=== PATIENT | female | born 1965 ===

== ENCOUNTER 2016-08-12 14:41 | Emergency (ER) | payer OTHER ==
[2016-08-12 14:41] VITALS: BMI 62.4
[2016-08-12 14:45] VITALS: RESP 18; TEMP 97.9; O2SAT 96
--- NOTE | 2016-08-12 15:31 | C.PDOC ---
History Of Present Illness 50 yo female w/PMHx of HTN, NIDDM, come in for evaluation of facial swelling, itchy rash gradually developed for past week. Pt admits, similar sx in past " not sure what I might be allergic to". Pt denies change in her medication regimen, denies KVNG inh, BCP use. Pt denies recent illness, fever, chills, headache, dizziness, visual changes, neck pain, CP, sore throat or tightness, SOB, dyspnea, wheezing, cough, abd. pain, N/V/D, UTI Sx. Pt admits, was taking benadryl, Zyrtec OTC without improvement in rash. Ambulate to ED for evaluation , not in any apparent distress. Time Seen by Provider: 08/12/16 14:47 Chief Complaint (Nursing): Abnormal Skin Integrity History Per: Patient Onset/Duration Of Symptoms: Gradual Current Symptoms Are (Timing): Still Present Past Medical History Reviewed: Historical Data, Nursing Documentation, Vital Signs Vital Signs: Last Vital Signs Temp 97.9 F 08/12/16 14:43 Pulse 83 08/12/16 14:43 Resp 18 08/12/16 14:43 BP 128/79 08/12/16 14:43 Pulse Ox 96 08/12/16 14:43 - Medical History PMH: Anemia, Anxiety, Asthma, Back Problems, Diabetes, HTN, Hypercholesterolemia , Osteoporosis, Rheumatoid Arthritis Denies: Chronic Kidney Disease Surgical History: CABG Family History: States: No Known Family Hx - Social History Hx Tobacco Use: Yes Hx Alcohol Use: Yes Hx Substance Use: No - Immunization History Hx Tetanus Toxoid Vaccination: No Hx Influenza Vaccination: Yes Hx Pneumococcal Vaccination: No Review Of Systems Except As Marked, All Systems Reviewed And Found Negative. Constitutional: Negative for: Fever, Chills Eyes: Positive for: Other (swelling periorbital). Negative for: Vision Change, Eyelid Inflammation, Redness ENT: Negative for: Ear Discharge, Mouth Swelling, Throat Pain, Throat Swelling Cardiovascular: Negative for: Chest Pain, Palpitations, Orthopnea, Edema, Light Headedness Respiratory: Negative for: Cough, Shortness of Breath, Wheezing Gastrointestinal: Negative for: Nausea, Vomiting, Abdominal Pain Genitourinary: Negative for: Dysuria, Frequency Musculoskeletal: Negative for: Neck Pain, Back Pain Skin: Positive for: Rash Neurological: Negative for: Weakness, Numbness, Altered Mental Status, Headache , Dizziness Physical Exam - Physical Exam Appears: Well, Non-toxic, No Acute Distress Skin: Warm, Dry, Rash (scattered tiny erythematous macular rash to face, anterior chest, B/L UEs , abdomenal wall and upper back. no clelulitis) Head: Normacephalic Eye(s): bilateral: Normal Inspection, PERRL, EOMI, Other (mild periorbital edema , no erythema.) Ear(s): Bilateral: Normal Nose: Normal, No Discharge Oral Mucosa: Moist, No Drooling Tongue: Normal Appearing, No Swelling Lips: Normal Appearing, No Swelling Throat: Normal, No Erythema, No Exudate, Other (uvula midline, no edema.) Neck: Normal, Normal ROM, Supple Cardiovascular: Rhythm Regular Respiratory: Normal Breath Sounds, No Stridor, No Wheezing Gastrointestinal/Abdominal: Normal Exam, Soft, No Tenderness, No Distention, No Guarding Back: Normal Inspection Extremity: Normal ROM, No Pedal Edema Neurological/Psych: Oriented x3, Normal Speech ED Course And Treatment O2 Sat by Pulse Oximetry: 96 Pulse Ox Interpretation: Normal Progress Note: On re-eavluation, pt is afebrile, hemodynamicaly stable. NOn- toxic. PulseOx 96% RA. Tolerate PO well in ED. ENT: no acute finidngs., uvula midline, no edema. Lungs: CTA B/L, BS equal B/L. Abd: benign. Skin: erythematous macular rash, nos. Pt has clinical findings c/w mild facial edema mostly periorbital, skin rash r/o allergic reaction, recurrent. Pt advised to F /U with PMD, Fire Fighters Dispatcher in 2-3 days for re-evaluation. Return to ED if nay worsening or new hcanges. Disposition Counseled Patient/Family Regarding: Diagnosis, Need For Followup, Rx Given - Disposition Referrals: Kiran Harrison MD [Medical Doctor] - Disposition: HOME/ ROUTINE Disposition Time: 15:29 Condition: STABLE Additional Instructions: Follow up with PMD and Fire Fighters Dispatcher in 2-3 days for re-evaluation and further treatment of recurrent rash. Return to ED if any worsening or new changes. Prescriptions: DiphenhydrAMINE [Benadryl] 25 mg PO BID #10 cap Prednisone [Deltasone] 40 mg PO DAILY #6 tablet Famotidine [Pepcid] 20 mg PO BID #10 tab Instructions: Urticaria (ED) - Clinical Impression Clinical Impression: Facial edema, Allergy
[2016-08-12 15:54] VITALS: BP 121/77; PULSE 79
== END 2016-08-12 15:54 | disposition home or self-care (01) ==
LOC: C.ER 14:41
DX: T78.40XA Allergy, unspecified, initial encounter (principal); R60.9 Edema, unspecified; X58.XXXA Exposure to other specified factors, initial encounter

== ENCOUNTER 2016-10-06 14:39 | Emergency (ER) | payer OTHER ==
[2016-10-06 14:48] VITALS: BMI 30.1
[2016-10-06 15:00] VITALS: TEMP 98.2; O2SAT 97
--- NOTE | 2016-10-06 15:59 | C.PDOC ---
History Of Present Illness 50 y/o female presents to ED with complaint of clicking on extension of her right thumb for 1 month with worsening pain to click over the last few days. Patient denies any trauma or known injury. Denies any other physical complaints. Time Seen by Provider: 10/06/16 15:15 Chief Complaint (Nursing): Upper Extremity Problem/Injury History Per: Patient History/Exam Limitations: no limitations Onset/Duration Of Symptoms: Days Current Symptoms Are (Timing): Worse Quality: "Pain" Exacerbating Factor(s): Movement Recent travel outside of the [place]: No Past Medical History Reviewed: Historical Data, Nursing Documentation, Vital Signs Vital Signs: Last Vital Signs Temp 98.2 F 10/06/16 14:49 Pulse 78 10/06/16 17:05 Resp 18 10/06/16 17:05 BP 126/75 10/06/16 17:05 Pulse Ox 97 10/06/16 17:31 - Medical History PMH: Anemia, Anxiety, Asthma, Back Problems, Diabetes, HTN, Hypercholesterolemia , Osteoporosis, Rheumatoid Arthritis Surgical History: Denies: CABG (Cathetherization) Family History: States: Unknown Family Hx - Social History Hx Tobacco Use: Yes Hx Alcohol Use: Yes Hx Substance Use: No - Immunization History Hx Tetanus Toxoid Vaccination: No Hx Influenza Vaccination: Yes (2017) Hx Pneumococcal Vaccination: No Review Of Systems Except As Marked, All Systems Reviewed And Found Negative. Musculoskeletal: Positive for: Hand Pain (right thumb). Negative for: Arm Pain Skin: Negative for: Rash Neurological: Negative for: Weakness, Numbness Physical Exam - Physical Exam Appears: Non-toxic, No Acute Distress Skin: Normal Color, Warm, Dry Head: Atraumatic, Normacephalic Extremity: Normal ROM, Tenderness (at right DIP joint 1st digit), Capillary Refill (< 2 sec.), No Deformity, No Swelling, Other (right thumb with locking at DIP joint, easily to extend the click) Extremity: Bilateral: Normal Color And Temperature Pulses: Left Radial: Normal, Right Radial: Normal Neurological/Psych: Oriented x3, Normal Motor, Normal Sensation ED Course And Treatment O2 Sat by Pulse Oximetry: 97 (RA) Pulse Ox Interpretation: Normal - Other Rad HAND RIGHT THUMB XR X-Ray: Interpreted by Me, Viewed By Me Interpretation: negative for fx or dislocation Progress Note: Treated with Toradol. Right hand/thumb x-ray ordered and reviewed , negative for acute fx or dislocation. Advised follow up with PMD within 1-2 days. Disposition Counseled Patient/Family Regarding: Diagnosis, Need For Followup - Disposition Referrals: Jimmy Spencer MD [Staff Provider] - Disposition: HOME/ ROUTINE Disposition Time: 16:57 Condition: GOOD Additional Instructions: Make an apt with the hand surg Prescriptions: Naproxen [Naprosyn] 1 tab PO BID PRN #25 tab PRN Reason: Pain Instructions: Trigger Finger (ED) - Clinical Impression Clinical Impression: Trigger finger - Scribe Statement The provider has reviewed the documentation as recorded by the Yony Penn Provider Attestation: All medical record entries made by the Yony were at my direction and personally dictated by me. I have reviewed the chart and agree that the record accurately reflects my personal performance of the history, physical exam, medical decision making, and the department course for this patient. I have also personally directed, reviewed, and agree with the discharge instructions and disposition.
[2016-10-06 17:06] VITALS: BP 126/75; PULSE 78; RESP 18
--- NOTE | 2016-10-07 10:32 | RAD ---
PROCEDURE: Right Thumb radiographs. HISTORY: Pain, locking COMPARISON: None available. TECHNIQUE: AP radiograph of the right hand, as well as spot oblique and lateral images of thumb were obtained. FINDINGS: RIGHT THUMB: Unremarkable right 1st digit without acute displaced fracture identified. Remainder of the right hand (as seen on the AP view) grossly unremarkable. JOINTS: No dislocation. SOFT TISSUES: Unremarkable. No evidence of radiopaque foreign body. OTHER FINDINGS: None. IMPRESSION: No acute displaced fracture or dislocation identified. If symptoms persist or if there is continued clinical concern, x-ray follow-up in 7-10 days should be considered.
== END 2016-10-06 17:07 | disposition home or self-care (01) ==
LOC: C.ER 14:39
DX: M65.311 Trigger thumb, right thumb (principal)
CPT/HCPCS: 73140; 96372; 99284; J1885

== ENCOUNTER 2017-02-06 08:22 | Emergency (ER) | payer OTHER ==
[2017-02-06 08:23] VITALS: BMI 30.1
[2017-02-06 08:31] VITALS: RESP 18
[2017-02-06] MEDS ORDERED: Fluorescein 1 mg Ophthalmic Strip OD ONE (08:40)
[2017-02-06] MEDS ORDERED: Tetracaine 0.5% Ophth 2 ML BOTTLE OU ONE (08:40)
[2017-02-06] MEDS ORDERED: Fluorescein 1 mg Ophthalmic Strip ONE (08:45)
[2017-02-06] MEDS ORDERED: Tetracaine 0.5% Ophth (OR ONLY) ONE (08:46)
--- NOTE | 2017-02-06 09:02 | C.PDOC ---
History Of Present Illness 51 yr old female presents to the ER for evaluation of pain to the right eye. Patient states yesterday she felt her eye was irritated , started scratching it and then felt like she broke her lens. Pt is concerned that part of her lens is still in her eye. Patient denies vision changes, headache or dizziness. Time Seen by Provider: 02/06/17 08:39 Chief Complaint (Nursing): Eye Problem History Per: Patient History/Exam Limitations: no limitations Onset/Duration Of Symptoms: Days (1) Past Medical History Reviewed: Historical Data, Nursing Documentation, Vital Signs Vital Signs: Last Vital Signs Temp 98.1 F 02/06/17 09:18 Pulse 72 02/06/17 09:18 Resp 18 02/06/17 09:18 BP 126/72 02/06/17 09:18 Pulse Ox 98 02/06/17 09:25 - Medical History PMH: Anemia, Anxiety, Asthma, Back Problems, Diabetes, HTN, Hypercholesterolemia , Osteoporosis, Rheumatoid Arthritis Surgical History: Denies: CABG (Cathetherization) Family History: States: No Known Family Hx - Social History Hx Tobacco Use: Yes Hx Alcohol Use: Yes Hx Substance Use: No - Immunization History Hx Tetanus Toxoid Vaccination: No Hx Influenza Vaccination: Yes (2017) Hx Pneumococcal Vaccination: No Review Of Systems Except As Marked, All Systems Reviewed And Found Negative. Eyes: Positive for: Pain (Right eye). Negative for: Vision Change Neurological: Negative for: Headache, Dizziness Physical Exam - Physical Exam Appears: Non-toxic, No Acute Distress Skin: Warm, Dry Head: Atraumatic, Normacephalic Eye(s): bilateral: PERRL, EOMI, right: Other (Mild injection. Fluorescein uptake at the 8 oclock position.) Nose: Normal Oral Mucosa: Moist Neck: Normal ROM, Supple Chest: Symmetrical Respiratory: No Accessory Muscle Use Extremity: Normal ROM, No Swelling Neurological/Psych: Oriented x3, Normal Speech, Normal Motor ED Course And Treatment O2 Sat by Pulse Oximetry: 98 (RA) Pulse Ox Interpretation: Normal Progress Note: Patient is treated with Motrin for the pain. Right eye was irrigated. Patient advised to follow up with Opthamologist in 1-2 days. Medical Decision Making Medical Decision Making: PLAN: * Motrin PO Disposition - Disposition Referrals: Kiran Woodson MD [Staff Provider] - Disposition: HOME/ ROUTINE Disposition Time: 09:00 Condition: STABLE Additional Instructions: Follow up with referral physician in 1-2 days without fail for further evaluation. Take medications as prescribed. Return to the emergency department at any time if symptoms persist or worsen. Prescriptions: Tobramycin 0.3% [Tobramycin 5 Ml] 1 drop OP Q4 #1 bottle Instructions: Corneal Abrasion (ED) Forms: [employer] (Chilean) - Clinical Impression Clinical Impression: Corneal abrasion - PA / TILE GRADER / Resident Statement MD/DO has reviewed & agrees with the documentation as recorded. - Scribe Statement The provider has reviewed the documentation as recorded by the Scribe Kamilah Valera All medical record entries made by the Scribe were at my direction and personally dictated by me. I have reviewed the chart and agree that the record accurately reflects my personal performance of the history, physical exam, medical decision making, and the department course for this patient. I have also personally directed, reviewed, and agree with the discharge instructions and disposition.
[2017-02-06 09:18] VITALS: BP 126/72; PULSE 72; TEMP 98.1
[2017-02-06 09:23] VITALS: O2SAT 98
== END 2017-02-06 09:25 | disposition home or self-care (01) ==
LOC: C.ER 08:22
DX: S05.01XA Injury of conjunctiva and corneal abrasion without foreign body, right eye, initial encounter (principal); X58.XXXA Exposure to other specified factors, initial encounter

== ENCOUNTER 2017-05-18 11:20 | Observation (INO) | payer MEDICARE, OTHER ==
[2017-05-18 11:21] VITALS: BMI 30.1
[2017-05-18] MEDS ORDERED: Aspirin 325 mg EC Tablets PO STA (14:14)
--- NOTE | 2017-05-18 14:19 | C.PDOC ---
History Of Present Illness 6o y/o female with dm and htn , cva, c/o 10 days of cough with green sputum, body aches, fever to 102. pt also c/o intermittent sharp non radiating left sided chest pain that comes and goes for last few days that is not associated with breathing or coughing. +chest pain now. Time Seen by Provider: 05/18/17 14:01 Chief Complaint (Nursing): Cough, Cold, Congestion History Per: Patient History/Exam Limitations: no limitations Onset/Duration Of Symptoms: Days (10) Current Symptoms Are (Timing): Still Present Location Of Pain: Other (chest) Associated Symptoms: Cough, Sputum Past Medical History Reviewed: Historical Data, Nursing Documentation, Vital Signs Vital Signs: Last Vital Signs Temp 97.3 F L 05/20/17 08:05 Pulse 82 05/20/17 08:05 Resp 18 05/20/17 08:05 BP 120/78 05/20/17 08:05 Pulse Ox 97 05/20/17 10:46 - Medical History PMH: Anemia, Anxiety, Asthma, Back Problems, CVA, Diabetes, HTN, Hypercholesterolemia, Osteoporosis, Rheumatoid Arthritis Denies: Chronic Kidney Disease Surgical History: Denies: CABG (Cathetherization) Family History: States: Unknown Family Hx - Social History Hx Tobacco Use: Yes Hx Alcohol Use: Yes Hx Substance Use: No - Immunization History Hx Tetanus Toxoid Vaccination: No Hx Influenza Vaccination: Yes (2017) Hx Pneumococcal Vaccination: No Review Of Systems Constitutional: Positive for: Fever Cardiovascular: Positive for: Chest Pain Respiratory: Positive for: Cough, Shortness of Breath, Pleuritic Pain, Sputum Neurological: Negative for: Weakness, Numbness Physical Exam - Physical Exam Appears: Non-toxic, Other (uncomfortable appearing) Skin: Warm, Dry Head: Atraumatic, Normacephalic Oral Mucosa: Moist Throat: No Erythema, No Exudate Neck: Supple Chest: Symmetrical, No Deformity, No Tenderness Cardiovascular: Rhythm Regular, No Murmur Respiratory: Other (coarse breath sounds) Gastrointestinal/Abdominal: Soft, No Tenderness Neurological/Psych: Oriented x3, Normal Speech, Normal Cognition, Normal Motor, Normal Sensation ED Course And Treatment - Laboratory Results Result Diagrams: 05/20/17 06:22 05/20/17 06:22 ECG Rhythm: Sinus Rhythm (normal) ECG Interpretation: Abnormal Interpretation Of ECG: Cannot rule out anterior infarct, age undertermined Rate From EC O2 Sat by Pulse Oximetry: 97 Medical Decision Making Medical Decision Makin pm pt with multiple medical problems and lultiple risk factors for cad with active chest pain, ekg changes and no old ekg to compare. concern for angina, nstemi. pt still having chest pain, and having anxiety attack. no old ekg to compare. [address] Tovar, will admit to his service. Disposition Discussed With : Jenifer Tovar - Disposition Disposition: HOSPITALIZED Disposition Time: 16:55 Condition: FAIR - Clinical Impression Clinical Impression: Chest pain
[2017-05-18] MEDS ORDERED: Aspirin 325 mg EC Tablets PO ONE (14:33)
[2017-05-18 14:38] LABS: BASO % 0.3 % (0.0-2.0); EOS # 0.3 K/uL (0.0-0.7); EOS % 2.3 % (0.0-4.0); LYMPH # 2.4 K/uL (1.0-4.3); LYMPH % 21.6 % (20.0-40.0); MEAN CELL VOLUME 87.3 fL (81.0-99.0); MEAN CORPUSCULAR HEMOGLOBIN 30.5 pg (27.0-31.0); MEAN CORPUSCULAR HGB CONC 34.9 g/dL (33.0-37.0); MEAN PLATELET VOLUME 9.4 fL (7.2-11.7); MONO # 0.7 K/uL (0.0-0.8); MONO % 5.9 % (0.0-10.0); NEUT # 7.9 K/uL (1.8-7.0); NEUT % 69.9 % (50.0-75.0); RBC 4.59 Mil/uL (3.80-5.20); RED CELL DISTRIBUTION WIDTH 12.8 % (11.5-14.5); WHITE BLOOD COUNT 11.2 K/uL (4.8-10.8)
--- NOTE | 2017-05-18 14:41 | RAD ---
HISTORY: chest pain and cough COMPARISON: None available. TECHNIQUE: Chest PA and lateral FINDINGS: Examination limited by habitus. LUNGS: Subsegmental atelectasis, left lung base. No focal consolidation. Please note that chest x-ray has limited sensitivity for the detection of pulmonary masses. PLEURA: No significant pleural effusion identified. No definite pneumothorax . CARDIOVASCULAR: Heart size appears within normal limits. OSSEOUS STRUCTURES: No acute osseous abnormality identified. VISUALIZED UPPER ABDOMEN: Unremarkable. OTHER FINDINGS: None. IMPRESSION: Subsegmental atelectasis, left lung base.
[2017-05-18 15:01] LABS: ALB/GLOB RATIO 1.3 (1.0-2.1); ALBUMIN 4.1 g/dL (3.5-5.0); ALT/SGPT 21 U/L (9-52); AST/SGOT 20 U/L (14-36); BLOOD UREA NITROGEN 11 mg/dL (7-17); CALCIUM 7.9 mg/dl (8.6-10.4); GFR AFRICAN-AMERICAN > 60; GFR NON-AFRICAN AMERICAN > 60
[2017-05-18] MEDS ORDERED: Potassium Chloride 20 mEq ER Tab PO ONE (17:04)
[2017-05-18] MEDS: Sodium Chloride 0.9% 1,000 ML IV SCH (17:07)
[2017-05-18] MEDS ORDERED: Oxycodone/Acetaminophen 5/325 mg Tab ONE (22:24)
[2017-05-18] MEDS: Oxycodone/Acetaminophen 5/325 mg Tab PO PRN (22:27)
[2017-05-19] MEDS ORDERED: (Novolog) Insulin Aspart, Recombinant 100 u/ml 10 ml vial ONE (00:18)
[2017-05-19] MEDS: (Novolog) Insulin Aspart, Recombinant 100 u/ml 10 ml vial SC SCH ×5 (00:20→21:55)
[2017-05-19] MEDS: Sodium Chloride 0.9% 1,000 ML IV SCH ×2 (03:37→12:22)
[2017-05-19] MEDS: Enoxaparin 40 mg Syringe SC SCH (09:10)
[2017-05-19] MEDS: Potassium Chloride 20 mEq ER Tab PO SCH (09:10)
[2017-05-19] MEDS: Oxycodone/Acetaminophen 5/325 mg Tab PO PRN ×2 (09:11→16:05)
[2017-05-19] MEDS: Pantoprazole 40 mg EC Tab PO SCH (09:12)
[2017-05-19] MEDS ORDERED: CREON PO SCH ×2 (10:00)
[2017-05-19] MEDS ORDERED: Home Med 1 UNIT (Linaclotide [Linzess] 145 MCG) PO SCH (10:00)
[2017-05-19 11:51] LABS: BLOOD UREA NITROGEN 13 mg/dL (7-17); CALCIUM 7.8 mg/dl (8.6-10.4); GFR AFRICAN-AMERICAN > 60; GFR NON-AFRICAN AMERICAN > 60; MAGNESIUM 1.6 mg/dL (1.6-2.3)
[2017-05-19] MEDS ORDERED: guaiFENesin 200 mg/10 ml Syrup UD PO PRN (12:03)
[2017-05-19] MEDS: Azithromycin 500 MG in Sodium Chloride 0.9% 250 ML IVPB SCH (13:59)
--- NOTE | 2017-05-19 14:51 | CARD ---
APPROVED REPORT EKG Measurement Heart [id number] <Conclusion> Normal sinus rhythm Cannot rule out Anterior infarct, age undetermined Abnormal ECG
--- NOTE | 2017-05-19 17:07 | CP.PCM.HP ---
Past Patient History - Past Medical History & Family History Past Medical History?: Yes - Past Social History Smoking Status: Current Some Days Smoker - CARDIAC Hx Hypercholesterolemia: Yes Hx Hypertension: Yes - PULMONARY Hx Asthma: Yes - NEUROLOGICAL Hx Neurological Disorder: No - HEENT Hx HEENT Problems: Yes Other/Comment: wears contacts all the time - RENAL Hx Chronic Kidney Disease: No - ENDOCRINE/METABOLIC Hx Endocrine Disorders: Yes Hx Diabetes Mellitus Type 1: Yes (''ONLY WHEN NEEDED'') - HEMATOLOGICAL/ONCOLOGICAL Hx Anemia: Yes - INTEGUMENTARY Hx Dermatological Problems: No - MUSCULOSKELETAL/RHEUMATOLOGICAL Hx Falls: Yes Hx Osteoporosis: Yes Hx Rheumatoid Arthritis: Yes - GASTROINTESTINAL Hx Gastrointestinal Disorders: No - GENITOURINARY/GYNECOLOGICAL Hx Genitourinary Disorders: No - PSYCHIATRIC Hx Anxiety: Yes Hx Substance Use: No - SURGICAL HISTORY Hx Coronary Artery Bypass Graft: No (Cathetherization) - ANESTHESIA Hx Anesthesia: Yes Hx Anesthesia Reactions: No Meds Allergies/Adverse Reactions: Allergies Allergy/AdvReac Type Severity Reaction Status Date / Time clopidogrel bisulfate Allergy SHORTNESS Verified 05/18/17 11:45 [From Plavix] OF BREATH Results - Vital Signs Recent Vital Signs: Last Vital Signs Temp 98.2 F 05/19/17 08:10 Pulse 90 05/19/17 15:00 Resp 20 05/19/17 08:10 BP 114/71 05/19/17 08:10 Pulse Ox 96 05/19/17 08:10 - Labs Result Diagrams: 05/18/17 14:31 05/19/17 11:26 Labs: Laboratory Results - last 24 hr 05/18/17 05/19/17 05/19/17 21:56 00:06 06:11 Sodium Potassium Chloride Carbon Dioxide Anion Gap BUN Creatinine Est GFR ( Amer) Est GFR (Non-Af Amer) POC Glucose (mg/dL) 348 H 358 H 194 H Random Glucose Calcium Magnesium Troponin I 05/19/17 05/19/17 05/19/17 11:26 11:49 14:27 Sodium 131 L Potassium 3.6 Chloride 95 L Carbon Dioxide 27 Anion Gap 12 BUN 13 Creatinine 0.5 L Est GFR ( Amer) > 60 Est GFR (Non-Af Amer) > 60 POC Glucose (mg/dL) 216 H Random Glucose 273 H Calcium 7.8 L Magnesium 1.6 Troponin I < 0.0120 05/19/17 16:38 Sodium Potassium Chloride Carbon Dioxide Anion Gap BUN Creatinine Est GFR ( Amer) Est GFR (Non-Af Amer) POC Glucose (mg/dL) 263 H Random Glucose Calcium Magnesium Troponin I
--- NOTE | 2017-05-19 19:38 | CARD ---
APPROVED REPORT EXAM: Two-dimensional and M-mode echocardiogram with Doppler and color Doppler. Other Information Quality : Good[employer]hythm : INDICATION Chest Pain EF 2D DIMENSIONS IVSd1.1 (0.7-1.1cm)LVDd4.4 (3.9-5.9cm) PWd1.2 (0.7-1.1cm)LVDs2.6 (2.5-4.0cm) FS (%) 42.3 %LVEF (%)73.5 (>50%) M-Mode DIMENSIONS Left Atrium (MM)3.85 (2.5-4.0cm)Aortic Root2.87 (2.2-3.7cm) Aortic Cusp Exc.1.92 (1.5-2.0cm) Mitral Valve MV E Fryzrskw850.9cm/sMV A Qvvuyrso22.3cm/sE/A ratio1.0 TDI E/Lateral E'0.0E/Medial E'0.0 Tricuspid Valve TR Peak [id number]/sTR Peak Gr.[id number] LEFT VENTRICLE The left ventricle is normal size. There is normal left ventricular wall thickness. The left ventricular function is normal. The left ventricular ejection fraction is within the normal range. There is normal LV segmental wall motion. Transmitral Doppler flow pattern is Grade I-abnormal relaxation pattern. RIGHT VENTRICLE The right ventricle is normal size. There is normal right ventricular wall thickness. The right ventricular systolic function is normal. ATRIA The left atrium is borderline dilated. The right atrium size is normal. AORTIC VALVE The aortic valve is mildly thickened. No aortic regurgitation is present. There is no aortic valvular stenosis. MITRAL VALVE The mitral valve is normal in structure. There is no mitral valve stenosis. Mitral regurgitation is mild. TRICUSPID VALVE There is mild tricuspid regurgitation. GREAT VESSELS The aortic root is normal in size. The IVC is normal in size and collapses >50% with inspiration. PERICARDIAL EFFUSION There is no pericardial effusion. <Conclusion> There is normal left ventricular wall thickness. The left ventricular function is normal. The left ventricular ejection fraction is within the normal range. There is normal LV segmental wall motion. Transmitral Doppler flow pattern is Grade I-abnormal relaxation pattern. Mitral regurgitation is mild. There is mild tricuspid regurgitation.
[2017-05-20] MEDS: Oxycodone/Acetaminophen 5/325 mg Tab PO PRN ×3 (00:13→17:50)
--- NOTE | 2017-05-20 01:04 | CP.PCM.CON ---
History of Present Illness - History of Present Illness History of Present Illness: Patient seen and evaluated Denies chest pain Some dyspnea noted Check ECHO/ROMIs and EKG Past Patient History - Past Medical History & Family History Past Medical History?: Yes - Past Social History Smoking Status: Current Some Days Smoker - CARDIAC Hx Hypercholesterolemia: Yes Hx Hypertension: Yes - PULMONARY Hx Asthma: Yes - NEUROLOGICAL Hx Neurological Disorder: No - HEENT Hx HEENT Problems: Yes Other/Comment: wears contacts all the time - RENAL Hx Chronic Kidney Disease: No - ENDOCRINE/METABOLIC Hx Endocrine Disorders: Yes Hx Diabetes Mellitus Type 1: Yes (''ONLY WHEN NEEDED'') - HEMATOLOGICAL/ONCOLOGICAL Hx Anemia: Yes - INTEGUMENTARY Hx Dermatological Problems: No - MUSCULOSKELETAL/RHEUMATOLOGICAL Hx Falls: Yes Hx Osteoporosis: Yes Hx Rheumatoid Arthritis: Yes - GASTROINTESTINAL Hx Gastrointestinal Disorders: No - GENITOURINARY/GYNECOLOGICAL Hx Genitourinary Disorders: No - PSYCHIATRIC Hx Anxiety: Yes Hx Substance Use: No - SURGICAL HISTORY Hx Coronary Artery Bypass Graft: No (Cathetherization) - ANESTHESIA Hx Anesthesia: Yes Hx Anesthesia Reactions: No Meds Home Medications: Home Medication List Medication Instructions Recorded Confirmed Type Albuterol HFA [Ventolin HFA 90 2 puff IH [id number] PRN #1 inh 05/21/17 Rx mcg/actuation (8 g)] Albuterol/Ipratropium [Duoneb 3 3 ml INH RQ6 #100 neb 05/21/17 Rx mg/0.5 mg (3 ml) UD] Aspirin [Ecotrin] 81 mg PO DAILY #30 tabec 05/21/17 Rx Azithromycin [Zithromax] 500 mg PO DAILY #5 tab 05/21/17 Rx Benzocaine/Menthol [Cepacol Sore 1 each MM Q4 PRN #20 lozenge 05/21/17 Rx Throat Lozenge] guaiFENesin [Robitussin] 200 mg PO Q4H PRN #8 oz 05/21/17 Rx Allergies/Adverse Reactions: Allergies Allergy/AdvReac Type Severity Reaction Status Date / Time clopidogrel bisulfate Allergy SHORTNESS Verified 05/18/17 11:45 [From Plavix] OF BREATH - Medications Medications: Current Medications Acetaminophen (Tylenol 325mg Tab) 650 mg PO Q6 PRN PRN Reason: Pain, moderate (4-7) Alprazolam (Xanax) 1 mg PO Q6 PRN PRN Reason: Anxiety Last Admin: 05/19/17 19:21 Dose: 1 mg Amlodipine Besylate (Norvasc) 10 mg PO DAILY [facility] Last Admin: 05/19/17 09:10 Dose: 10 mg Aspirin (Ecotrin) 81 mg PO DAILY [facility] Last Admin: 05/19/17 09:12 Dose: 81 mg Enoxaparin Sodium (Lovenox) 40 mg SC DAILY [facility] Last Admin: 05/19/17 09:10 Dose: 40 mg Gabapentin (Neurontin) 600 mg PO TID [facility] Last Admin: 05/19/17 17:27 Dose: 600 mg Glipizide (Glucotrol) 10 mg PO BID [facility] Last Admin: 05/19/17 17:26 Dose: 10 mg Guaifenesin (Robitussin) 200 mg PO Q4H PRN PRN Reason: Cough and congestion Home Med (Creon.) 2 tab PO TID [facility] Home Med (Linaclotide [Linzess]) 145 mcg PO DAILY [facility] Sodium Chloride (Sodium Chloride 0.9%) 1,000 mls @ 100 mls/hr IV .Q10H [facility] Last Admin: 05/19/17 12:22 Dose: 100 mls/hr Azithromycin 500 mg/ Sodium (Chloride) 250 mls @ 167 mls/hr IVPB Q24H [facility] Last Admin: 05/19/17 13:59 Dose: 167 mls/hr Insulin Aspart (Novolog) 0 unit SC ACHS [facility] PRN Reason: Protocol Last Admin: 05/19/17 21:55 Dose: Not Given Losartan Potassium (Cozaar) 100 mg PO DAILY [facility] Last Admin: 05/19/17 09:10 Dose: 100 mg Metformin HCl (Glucophage) 850 mg PO BID [facility] Last Admin: 05/19/17 17:27 Dose: 850 mg Ondansetron HCl (Zofran Inj) 4 mg IVP Q6 PRN PRN Reason: Nausea/Vomiting Last Admin: 05/19/17 12:18 Dose: 4 mg Oxycodone/Acetaminophen (Percocet 5/325 Mg Tab) 1 tab PO Q6H PRN PRN Reason: pain Stop: 05/21/17 22:11 Last Admin: 05/20/17 00:13 Dose: 1 tab Pantoprazole Sodium (Protonix Ec Tab) 40 mg PO DAILY [facility] Last Admin: 05/19/17 09:12 Dose: 40 mg Potassium Chloride (K-Dur 20 Meq Er Tab) 40 meq PO DAILY [facility] Last Admin: 05/19/17 09:10 Dose: 40 meq Rosuvastatin Calcium (Crestor) 20 mg PO HS [facility] Last Admin: 05/19/17 21:06 Dose: 20 mg Zolpidem Tartrate (Ambien) 5 mg PO HS PRN PRN Reason: Insomnia Last Admin: 05/19/17 22:38 Dose: 5 mg Results - Vital Signs Recent Vital Signs: Last Vital Signs Temp 97.4 F L 05/19/17 16:00 Pulse 82 05/19/17 16:00 Resp 20 05/19/17 16:00 BP 116/74 05/19/17 16:00 Pulse Ox 96 05/19/17 16:00 - Labs Result Diagrams: 05/20/17 06:22 05/20/17 06:22 Labs: Laboratory Results - last 24 hr 05/19/17 05/19/17 05/19/17 06:11 11:26 11:49 Sodium 131 L Potassium 3.6 Chloride 95 L Carbon Dioxide 27 Anion Gap 12 BUN 13 Creatinine 0.5 L Est GFR ( Amer) > 60 Est GFR (Non-Af Amer) > 60 POC Glucose (mg/dL) 194 H 216 H Random Glucose 273 H Calcium 7.8 L Magnesium 1.6 Troponin I 05/19/17 05/19/17 05/19/17 14:27 16:38 21:48 Sodium Potassium Chloride Carbon Dioxide Anion Gap BUN Creatinine Est GFR ( Amer) Est GFR (Non-Af Amer) POC Glucose (mg/dL) 263 H 233 H Random Glucose Calcium Magnesium Troponin I < 0.0120
[2017-05-20] MEDS: Sodium Chloride 0.9% 1,000 ML IV SCH ×4 (03:26→19:04)
[2017-05-20 06:46] LABS: BASO % 0.4 % (0.0-2.0); EOS # 0.3 K/uL (0.0-0.7); HEMOGLOBIN 12.1 g/dL (11.0-16.0); LYMPH # 2.2 K/uL (1.0-4.3); LYMPH % 28.7 % (20.0-40.0); MEAN CELL VOLUME 90.5 fL (81.0-99.0); MEAN CORPUSCULAR HEMOGLOBIN 30.1 pg (27.0-31.0); MEAN CORPUSCULAR HGB CONC 33.3 g/dL (33.0-37.0); MEAN PLATELET VOLUME 9.8 fL (7.2-11.7); MONO # 0.5 K/uL (0.0-0.8); NEUT # 4.7 K/uL (1.8-7.0); NEUT % 59.9 % (50.0-75.0); NRBC % 0.1 % (0.0-2.0); RBC 4.03 Mil/uL (3.80-5.20); RED CELL DISTRIBUTION WIDTH 12.8 % (11.5-14.5); WHITE BLOOD COUNT 7.8 K/uL (4.8-10.8)
[2017-05-20] MEDS: (Novolog) Insulin Aspart, Recombinant 100 u/ml 10 ml vial SC SCH ×4 (07:29→21:50)
[2017-05-20 08:04] LABS: BLOOD UREA NITROGEN 9 mg/dL (7-17); CALCIUM 7.6 mg/dl (8.6-10.4); GFR AFRICAN-AMERICAN > 60; GFR NON-AFRICAN AMERICAN > 60
[2017-05-20] MEDS: Enoxaparin 40 mg Syringe SC SCH (09:08)
[2017-05-20] MEDS: Potassium Chloride 20 mEq ER Tab PO SCH (09:09)
[2017-05-20] MEDS: Pantoprazole 40 mg EC Tab PO SCH (09:09)
[2017-05-20] MEDS ORDERED: Home Med 1 UNIT (Linaclotide [Linzess] 145 MCG) PO SCH (10:00)
[2017-05-20] MEDS: Azithromycin 500 MG in Sodium Chloride 0.9% 250 ML IVPB SCH (13:29)
--- NOTE | 2017-05-20 20:30 | CP.PCM.PN ---
Subjective - Date & Time of Evaluation Date of Evaluation: 05/20/17 Time of Evaluation: 20:30 Objective - Vital Signs/Intake and Output Vital Signs (last 24 hours): Temp Pulse Resp BP Pulse Ox 97.9 F 89 20 110/73 99 05/20/17 15:00 05/20/17 16:30 05/20/17 15:00 05/20/17 15:00 05/20/17 15:00 Intake and Output: 05/20/17 05/21/17 18:59 06:59 Intake Total 550 Balance 550 - Medications Medications: Current Medications Acetaminophen (Tylenol 325mg Tab) 650 mg PO Q6 PRN PRN Reason: Pain, moderate (4-7) Albuterol/Ipratropium (Duoneb 3 Mg/0.5 Mg (3 Ml) Ud) 3 ml INH RQ6 [facility] Alprazolam (Xanax) 1 mg PO Q6 PRN PRN Reason: Anxiety Last Admin: 05/20/17 13:28 Dose: 1 mg Amlodipine Besylate (Norvasc) 10 mg PO DAILY [facility] Last Admin: 05/20/17 09:09 Dose: 10 mg Aspirin (Ecotrin) 81 mg PO DAILY [facility] Last Admin: 05/20/17 09:08 Dose: 81 mg Enoxaparin Sodium (Lovenox) 40 mg SC DAILY [facility] Last Admin: 05/20/17 09:08 Dose: 40 mg Gabapentin (Neurontin) 600 mg PO TID [facility] Last Admin: 05/20/17 17:45 Dose: 600 mg Glipizide (Glucotrol) 10 mg PO BID [facility] Last Admin: 05/20/17 17:45 Dose: 10 mg Guaifenesin (Robitussin) 200 mg PO Q4H PRN PRN Reason: Cough and congestion Home Med (Creon.) 2 tab PO TID [facility] Home Med (Linaclotide [Linzess]) 145 mcg PO DAILY [facility] Sodium Chloride (Sodium Chloride 0.9%) 1,000 mls @ 100 mls/hr IV .Q10H [facility] Last Admin: 05/20/17 19:04 Dose: Not Given Azithromycin 500 mg/ Sodium (Chloride) 250 mls @ 167 mls/hr IVPB Q24H [facility] Last Admin: 05/20/17 13:29 Dose: 167 mls/hr Insulin Aspart (Novolog) 0 unit SC ACHS [facility] PRN Reason: Protocol Last Admin: 05/20/17 17:46 Dose: 4 unit Losartan Potassium (Cozaar) 100 mg PO DAILY [facility] Last Admin: 05/20/17 09:09 Dose: 100 mg Metformin HCl (Glucophage) 850 mg PO BID [facility] Last Admin: 05/20/17 17:45 Dose: 850 mg Ondansetron HCl (Zofran Inj) 4 mg IVP Q6 PRN PRN Reason: Nausea/Vomiting Last Admin: 05/19/17 12:18 Dose: 4 mg Oxycodone/Acetaminophen (Percocet 5/325 Mg Tab) 1 tab PO Q6H PRN PRN Reason: pain Stop: 05/21/17 22:11 Last Admin: 05/20/17 17:50 Dose: 1 tab Pantoprazole Sodium (Protonix Ec Tab) 40 mg PO DAILY [facility] Last Admin: 05/20/17 09:09 Dose: 40 mg Potassium Chloride (K-Dur 20 Meq Er Tab) 40 meq PO DAILY [facility] Last Admin: 05/20/17 09:09 Dose: 40 meq Rosuvastatin Calcium (Crestor) 20 mg PO HS [facility] Last Admin: 05/19/17 21:06 Dose: 20 mg Zolpidem Tartrate (Ambien) 5 mg PO HS PRN PRN Reason: Insomnia Last Admin: 05/19/17 22:38 Dose: 5 mg - Labs Labs: 05/20/17 06:22 05/20/17 06:22
[2017-05-20] MEDS: Albuterol-Ipratrop 3 mg / 0.5 (3 ml) UD INH SCH (20:45)
[2017-05-21] MEDS: Albuterol-Ipratrop 3 mg / 0.5 (3 ml) UD INH SCH ×3 (01:57→13:10)
[2017-05-21] MEDS: Sodium Chloride 0.9% 1,000 ML IV SCH ×2 (04:15→14:34)
[2017-05-21] MEDS: (Novolog) Insulin Aspart, Recombinant 100 u/ml 10 ml vial SC SCH ×2 (07:59→11:53)
[2017-05-21 08:41] VITALS: BP 131/84; RESP 18; TEMP 98.1; O2SAT 100
[2017-05-21] MEDS: Potassium Chloride 20 mEq ER Tab PO SCH (09:54)
[2017-05-21] MEDS: Enoxaparin 40 mg Syringe SC SCH (09:54)
[2017-05-21] MEDS: Pantoprazole 40 mg EC Tab PO SCH (09:55)
[2017-05-21] MEDS: Oxycodone/Acetaminophen 5/325 mg Tab PO PRN (10:19)
--- NOTE | 2017-05-21 12:35 | CP.PCM.PN ---
Subjective - Date & Time of Evaluation Date of Evaluation: 05/21/17 Time of Evaluation: 12:33 - Subjective Subjective: PT SEEN AND CLEARED BY DR. JONES. CLEARED FOR D/C BY / CARY. TO F/U WITH DR. JONES FOR OP STRESS TEST. TO F/U WITH DR. RANGEL (PMD). ALL MEDS AND F /U INFORMATION DISCUSSED WITH THE PT. WAITING FOR [facility]ILY [facility]. RX SENT TO PT'S PHARMACY. NO FURTHER ORDERS. Objective - Vital Signs/Intake and Output Vital Signs (last 24 hours): Temp Pulse Resp BP Pulse Ox 98.1 F 80 18 131/84 100 05/21/17 07:15 05/21/17 07:15 05/21/17 07:15 05/21/17 07:15 05/21/17 07:15 Intake and Output: 05/21/17 05/21/17 06:59 18:59 Intake Total 1160 Balance 1160 - Medications Medications: Current Medications Acetaminophen (Tylenol 325mg Tab) 650 mg PO Q6 PRN PRN Reason: Pain, moderate (4-7) Albuterol/Ipratropium (Duoneb 3 Mg/0.5 Mg (3 Ml) Ud) 3 ml INH RQ6 [facility] Last Admin: 05/21/17 08:50 Dose: 3 ml Alprazolam (Xanax) 1 mg PO Q6 PRN PRN Reason: Anxiety Last Admin: 05/20/17 13:28 Dose: 1 mg Amlodipine Besylate (Norvasc) 10 mg PO DAILY [facility] Last Admin: 05/21/17 09:55 Dose: 10 mg Aspirin (Ecotrin) 81 mg PO DAILY [facility] Last Admin: 05/21/17 09:55 Dose: 81 mg Enoxaparin Sodium (Lovenox) 40 mg SC DAILY [facility] Last Admin: 05/21/17 09:54 Dose: 40 mg Gabapentin (Neurontin) 600 mg PO TID [facility] Last Admin: 05/21/17 10:06 Dose: 600 mg Glipizide (Glucotrol) 10 mg PO BID [facility] Last Admin: 05/21/17 09:55 Dose: 10 mg Guaifenesin (Robitussin) 200 mg PO Q4H PRN PRN Reason: Cough and congestion Last Admin: 05/21/17 04:18 Dose: 200 mg Home Med (Creon.) 2 tab PO TID [facility] Home Med (Linaclotide [Linzess]) 145 mcg PO DAILY [facility] Sodium Chloride (Sodium Chloride 0.9%) 1,000 mls @ 100 mls/hr IV .Q10H [facility] Last Admin: 05/21/17 04:15 Dose: 100 mls/hr Azithromycin 500 mg/ Sodium (Chloride) 250 mls @ 167 mls/hr IVPB Q24H [facility] Last Admin: 05/20/17 13:29 Dose: 167 mls/hr Insulin Aspart (Novolog) 0 unit SC ACHS [facility] PRN Reason: Protocol Last Admin: 05/21/17 11:53 Dose: 4 unit Losartan Potassium (Cozaar) 100 mg PO DAILY [facility] Last Admin: 05/21/17 09:55 Dose: 100 mg Metformin HCl (Glucophage) 850 mg PO BID [facility] Last Admin: 05/21/17 09:55 Dose: 850 mg Ondansetron HCl (Zofran Inj) 4 mg IVP Q6 PRN PRN Reason: Nausea/Vomiting Last Admin: 05/19/17 12:18 Dose: 4 mg Oxycodone/Acetaminophen (Percocet 5/325 Mg Tab) 1 tab PO Q6H PRN PRN Reason: pain Stop: 05/21/17 22:11 Last Admin: 05/21/17 10:19 Dose: 1 tab Pantoprazole Sodium (Protonix Ec Tab) 40 mg PO DAILY [facility] Last Admin: 05/21/17 09:55 Dose: 40 mg Potassium Chloride (K-Dur 20 Meq Er Tab) 40 meq PO DAILY [facility] Last Admin: 05/21/17 09:54 Dose: 40 meq Rosuvastatin Calcium (Crestor) 20 mg PO HS [facility] Last Admin: 05/20/17 22:13 Dose: 20 mg Zolpidem Tartrate (Ambien) 5 mg PO HS PRN PRN Reason: Insomnia Last Admin: 05/19/17 22:38 Dose: 5 mg - Labs Labs: 05/20/17 06:22 05/20/17 06:22
[2017-05-21] MEDS: Azithromycin 500 MG in Sodium Chloride 0.9% 250 ML IVPB SCH (13:39)
[2017-05-21 15:01] VITALS: PULSE 92
--- NOTE | 2017-05-21 15:40 | CP.PCM.PN ---
Subjective - Date & Time of Evaluation Date of Evaluation: 05/21/17 Time of Evaluation: 15:40 Objective - Vital Signs/Intake and Output Vital Signs (last 24 hours): Temp Pulse Resp BP Pulse Ox 98.1 F 92 H 18 131/84 100 05/21/17 07:15 05/21/17 12:15 05/21/17 07:15 05/21/17 07:15 05/21/17 07:15 Intake and Output: 05/21/17 05/21/17 06:59 18:59 Intake Total 1160 Balance 1160 - Medications Medications: Current Medications Acetaminophen (Tylenol 325mg Tab) 650 mg PO Q6 PRN PRN Reason: Pain, moderate (4-7) Albuterol/Ipratropium (Duoneb 3 Mg/0.5 Mg (3 Ml) Ud) 3 ml INH RQ6 [facility] Last Admin: 05/21/17 13:10 Dose: 3 ml Alprazolam (Xanax) 1 mg PO Q6 PRN PRN Reason: Anxiety Last Admin: 05/21/17 12:35 Dose: 1 mg Amlodipine Besylate (Norvasc) 10 mg PO DAILY [facility] Last Admin: 05/21/17 09:55 Dose: 10 mg Aspirin (Ecotrin) 81 mg PO DAILY [facility] Last Admin: 05/21/17 09:55 Dose: 81 mg Enoxaparin Sodium (Lovenox) 40 mg SC DAILY [facility] Last Admin: 05/21/17 09:54 Dose: 40 mg Gabapentin (Neurontin) 600 mg PO TID [facility] Last Admin: 05/21/17 13:09 Dose: 600 mg Glipizide (Glucotrol) 10 mg PO BID [facility] Last Admin: 05/21/17 09:55 Dose: 10 mg Guaifenesin (Robitussin) 200 mg PO Q4H PRN PRN Reason: Cough and congestion Last Admin: 05/21/17 04:18 Dose: 200 mg Home Med (Creon.) 2 tab PO TID [facility] Home Med (Linaclotide [Linzess]) 145 mcg PO DAILY [facility] Sodium Chloride (Sodium Chloride 0.9%) 1,000 mls @ 100 mls/hr IV .Q10H [facility] Last Admin: 05/21/17 14:34 Dose: Not Given Azithromycin 500 mg/ Sodium (Chloride) 250 mls @ 167 mls/hr IVPB Q24H [facility] Last Admin: 05/21/17 13:39 Dose: 167 mls/hr Insulin Aspart (Novolog) 0 unit SC ACHS [facility] PRN Reason: Protocol Last Admin: 05/21/17 11:53 Dose: 4 unit Losartan Potassium (Cozaar) 100 mg PO DAILY [facility] Last Admin: 05/21/17 09:55 Dose: 100 mg Metformin HCl (Glucophage) 850 mg PO BID [facility] Last Admin: 05/21/17 09:55 Dose: 850 mg Ondansetron HCl (Zofran Inj) 4 mg IVP Q6 PRN PRN Reason: Nausea/Vomiting Last Admin: 05/19/17 12:18 Dose: 4 mg Oxycodone/Acetaminophen (Percocet 5/325 Mg Tab) 1 tab PO Q6H PRN PRN Reason: pain Stop: 05/21/17 22:11 Last Admin: 05/21/17 10:19 Dose: 1 tab Pantoprazole Sodium (Protonix Ec Tab) 40 mg PO DAILY [facility] Last Admin: 05/21/17 09:55 Dose: 40 mg Potassium Chloride (K-Dur 20 Meq Er Tab) 40 meq PO DAILY [facility] Last Admin: 05/21/17 09:54 Dose: 40 meq Rosuvastatin Calcium (Crestor) 20 mg PO HS [facility] Last Admin: 05/20/17 22:13 Dose: 20 mg Zolpidem Tartrate (Ambien) 5 mg PO HS PRN PRN Reason: Insomnia Last Admin: 05/19/17 22:38 Dose: 5 mg - Labs Labs: 05/20/17 06:22 05/20/17 06:22
--- NOTE | 2017-05-21 15:41 | CP.PCM.DIS ---
Provider - Provider Date of Admission: 05/18/17 16:53 Attending physician: Jenifer Tovar MD Time Spent in preparation of Discharge (in minutes): 25 Hospital Course - Lab Results Lab Results: Most Recent Lab Values WBC 7.8 K/uL (4.8-10.8) 05/20/17 06:22 RBC 4.03 Mil/uL (3.80-5.20) 05/20/17 06:22 Hgb 12.1 g/dL (11.0-16.0) 05/20/17 06:22 Hct 36.5 % (34.0-47.0) 05/20/17 06:22 MCV 90.5 fL (81.0-99.0) D 05/20/17 06:22 MCH 30.1 pg (27.0-31.0) 05/20/17 06:22 MCHC 33.3 g/dL (33.0-37.0) 05/20/17 06:22 RDW 12.8 % (11.5-14.5) 05/20/17 06:22 Plt Count 189 K/uL (130-400) 05/20/17 06:22 MPV 9.8 fL (7.2-11.7) 05/20/17 06:22 Neut % (Auto) 59.9 % (50.0-75.0) 05/20/17 06:22 Lymph % (Auto) 28.7 % (20.0-40.0) 05/20/17 06:22 Cook % (Auto) 7.0 % (0.0-10.0) 05/20/17 06:22 Eos % (Auto) 4.0 % (0.0-4.0) 05/20/17 06:22 Baso % (Auto) 0.4 % (0.0-2.0) 05/20/17 06:22 Neut # 4.7 K/uL (1.8-7.0) 05/20/17 06:22 Lymph # 2.2 K/uL (1.0-4.3) 05/20/17 06:22 Cook # 0.5 K/uL (0.0-0.8) 05/20/17 06:22 Eos # 0.3 K/uL (0.0-0.7) 05/20/17 06:22 Baso # 0.0 K/uL (0.0-0.2) 05/20/17 06:22 Sodium 134 mmol/L (132-148) 05/20/17 06:22 Potassium 3.8 mmol/L (3.6-5.2) 05/20/17 06:22 Chloride 103 mmol/L (98-107) 05/20/17 06:22 Carbon Dioxide 23 mmol/L (22-30) 05/20/17 06:22 Anion Gap 12 (10-20) 05/20/17 06:22 BUN 9 mg/dL (7-17) 05/20/17 06:22 Creatinine 0.5 mg/dL (0.7-1.2) L 05/20/17 06:22 Est GFR ( Amer) > 60 05/20/17 06:22 Est GFR (Non-Af Amer) > 60 05/20/17 06:22 POC Glucose (mg/dL) 297 mg/dL (65-110) H 05/21/17 11:11 Random Glucose 235 mg/dL (65-105) H 05/20/17 06:22 Calcium 7.6 mg/dl (8.6-10.4) L 05/20/17 06:22 Magnesium 1.6 mg/dL (1.6-2.3) 05/19/17 11:26 Total Bilirubin 0.7 mg/dL (0.2-1.3) 05/18/17 14:31 AST 20 U/L (14-36) 05/18/17 14:31 ALT 21 U/L (9-52) 05/18/17 14:31 Alkaline Phosphatase 55 U/L (38-126) 05/18/17 14:31 Troponin I < 0.0120 ng/mL (0.00-0.120) 05/19/17 14:27 Total Protein 7.3 g/dL (6.3-8.3) 05/18/17 14:31 Albumin 4.1 g/dL (3.5-5.0) 05/18/17 14:31 Globulin 3.2 gm/dL (2.2-3.9) 05/18/17 14:31 Albumin/Globulin Ratio 1.3 (1.0-2.1) 05/18/17 14:31 Influenza Typ A,B (EIA) Negative for flu a/b (NEGATIVE) 05/18/17 14:30 Discharge Plan - Discharge Medications Prescriptions: Benzocaine/Menthol [Cepacol Sore Throat Lozenge] 1 each MM Q4 PRN #20 lozenge PRN Reason: Sore Throat Albuterol/Ipratropium [Duoneb 3 mg/0.5 mg (3 ml) UD] 3 ml INH RQ6 #100 neb Aspirin [Ecotrin] 81 mg PO DAILY #30 tabec guaiFENesin [Robitussin] 200 mg PO Q4H PRN #8 oz PRN Reason: Cough And Congestion Albuterol HFA [Ventolin HFA 90 mcg/actuation (8 g)] 2 puff IH [id number] PRN #1 inh PRN Reason: Wheezing Azithromycin [Zithromax] 500 mg PO DAILY #5 tab - Follow Up Plan Condition: FAIR Disposition: HOME/ ROUTINE Instructions: Albuterol (By breathing), Aspirin (By mouth), Guaifenesin (By mouth), Azithromycin (By mouth), Ipratropium/Albuterol (By breathing), Benzocaine/Menthol (By mouth), Chest Pain (DC), Heart Healthy Diet (DC), Pneumonia (DC) Additional Instructions: FOLLOW UP WITH YOUR DOCTOR, DR. RANGEL, IN THE OFFICE WITHIN 5-7 DAYS---CALL THE OFFICE TO MAKE AN APPT. FOLLOW UP WITH DR. JONES IN THE OFFICE WITHIN 10-14 DAYS---CALL THE OFFICE ON WEDNESDAY TO MAKE AN APPT. YOU WILL NEED AN OUTPATIENT STRESS TEST PER DR. AREVALO. THIS CAN BE SCHEDULED AND ARRANGED WITH DR. JONES. CONTINUE ALL OF YOUR HOME MEDICATIONS USUAL. YOUR VENTOLIN INHALER AND NEBULIZER HAVE BEEN REFILLED. NEW MEDICATIONS HAVE BEEN SENT TO YOUR PHARMACY; PICK THEM UP TODAY: 1) ASPIRIN 81 MG (1 TABLET) BY MOUTH ONCE A DAY. 2) CEPACOL THROAT LOZENGE---FOR SORE THROAT. 3) ZITHROMAX 500 MG (1` TABLET) BY MOUTH ONCE A DAY FOR 5 DAYS ---START TAKING THIS ON WEDNESDAY. 05/22/17. 4) GUAIFENESIN---COUGH SYRUP---TAKE NEEDED. CALL DR. TOVAR'S OFFICE IF YOU HAVE ANY QUESTIONS REGARDING YOUR HOSPITAL STAY. Referrals: Riaz Arevalo MD [Staff Provider] - Jenifer Tovar MD [Staff Provider] - Vy Jones MD [Staff Provider] -
--- NOTE | 2017-05-22 21:24 | CP.PCM.PN ---
Subjective - Date & Time of Evaluation Date of Evaluation: 05/20/17 Time of Evaluation: 10:30 - Subjective Subjective: Patient seen and evaluated Denies chest pain Some dyspnea noted Normal LV function Normal Trops Non cardiac chest pain Chest pain as out patient Objective - Vital Signs/Intake and Output Vital Signs (last 24 hours): Temp Pulse Resp BP Pulse Ox 98.1 F 92 H 18 131/84 100 05/21/17 07:15 05/21/17 12:15 05/21/17 07:15 05/21/17 07:15 05/21/17 07:15 - Labs Labs: 05/20/17 06:22 05/20/17 06:22
--- NOTE | 2017-05-22 21:25 | CP.PCM.PN ---
Subjective - Date & Time of Evaluation Date of Evaluation: 05/21/17 Time of Evaluation: 09:20 - Subjective Subjective: Patient seen and evaluated Denies chest pain Some dyspnea noted Normal LV function Normal Trops Non cardiac chest pain Stress test as out patient with Dr. Blount Objective - Vital Signs/Intake and Output Vital Signs (last 24 hours): Temp Pulse Resp BP Pulse Ox 98.1 F 92 H 18 131/84 100 05/21/17 07:15 05/21/17 12:15 05/21/17 07:15 05/21/17 07:15 05/21/17 07:15 - Labs Labs: 05/20/17 06:22 05/20/17 06:22
== END 2017-05-21 16:22 | disposition home or self-care (01) ==
LOC: C.ER 11:20 → C.9E 16:53 → C.6T 22:52
PROVIDERS: ADMIT Internal Medicine Critical Care Medicine; ATTEND Internal Medicine Critical Care Medicine
DX: R07.9 Chest pain, unspecified (principal); F17.200 Nicotine dependence, unspecified, uncomplicated; E78.00 Pure hypercholesterolemia, unspecified; I10 Essential (primary) hypertension; J45.909 Unspecified asthma, uncomplicated; M81.0 Age-related osteoporosis without current pathological fracture; M06.9 Rheumatoid arthritis, unspecified; F41.9 Anxiety disorder, unspecified; Z95.1 Presence of aortocoronary bypass graft
CPT/HCPCS: 36415; 71046; 80048; 80053; 82948; 83735; 84484; 85025; 86710; 87804; 93005; 93306; 94640; 96372; 99284; G0378; J0456; J1650; J2405; J7040

== ENCOUNTER 2017-11-06 11:41 | Emergency (ER) | payer MEDICARE, OTHER ==
[2017-11-06 11:41] VITALS: BMI 30.1
[2017-11-06 12:00] VITALS: BP 133/82; PULSE 90; RESP 20; TEMP 98.3; O2SAT 98
[2017-11-06] MEDS ORDERED: Albuterol-Ipratrop 3 mg / 0.5 (3 ml) UD IH STA (12:48)
[2017-11-06] MEDS ORDERED: Naproxen 550 mg Tab PO STA (12:48)
--- NOTE | 2017-11-06 12:51 | C.PDOC ---
History Of Present Illness 51 y/o female with history of asthma presents to the ED complaining of persisting cough, congestion, general myalgias for 1 week. She also complains of subjective fever. She reports going to PMD this week and was prescribed "something that begins with A' with limited improvement. Patient notes mild improvement with MDI. She denies any associated symptoms. PERSIST COUGH, CONGESTION, MYALGIA X 1 WEEK. SUBJ FEVER. HO ASTHMA. PS SAW PMD THIS WEEK, S/P "SOMETHING BEGINS W A" W LIMTIED IMPROVE. MILD IMPROVE W MDI. DENIES OTHER ASSOC SX EXAM NAD NONTOXIC SPEAKING ON CELL PHONE WO DIFF HEENT NEG LUNGS OCC EXP WHEEZE CTA B/L NO W/R/R NO RETRACTIONS CV RRR REMAIDNER NEG Chief Complaint (Nursing): Flu-like Symptoms History Per: Patient History/Exam Limitations: no limitations Current Symptoms Are (Timing): Still Present Past Medical History Reviewed: Historical Data, Nursing Documentation, Vital Signs Vital Signs: Last Vital Signs Temp 98.3 F 11/06/17 11:58 Pulse 90 11/06/17 11:58 Resp 20 11/06/17 11:58 BP 133/82 11/06/17 11:58 Pulse Ox 98 11/06/17 13:07 - Medical History PMH: Anemia, Anxiety, Asthma, Back Problems, CVA, Diabetes, HTN, Hypercholesterolemia, Osteoporosis, Rheumatoid Arthritis Denies: Chronic Kidney Disease Surgical History: Denies: CABG (Cathetherization) Family History: States: No Known Family Hx - Social History Hx Tobacco Use: Yes Hx Alcohol Use: Yes Hx Substance Use: No - Immunization History Hx Tetanus Toxoid Vaccination: No Hx Influenza Vaccination: Yes (2017) Hx Pneumococcal Vaccination: No Review Of Systems Except As Marked, All Systems Reviewed And Found Negative. Constitutional: Positive for: Fever ENT: Positive for: Nose Congestion Respiratory: Positive for: Cough. Negative for: Shortness of Breath Gastrointestinal: Negative for: Nausea, Vomiting Musculoskeletal: Positive for: Other (Myalgias) Physical Exam - Physical Exam Appears: Non-toxic, No Acute Distress, Other (Speaking on cell phone w/o difficulty ) Skin: Normal Color, Warm, Dry Head: Atraumatic, Normacephalic Eye(s): bilateral: Normal Inspection, PERRL, EOMI Ear(s): Bilateral: Normal Oral Mucosa: Moist Neck: Supple Chest: Symmetrical Cardiovascular: Rhythm Regular, Other (RRR) Respiratory: Other (OCC EXP WHEEZE CTA B/L NO W/R/R NO RETRACTIONS) Extremity: Normal ROM Neurological/Psych: Oriented x3, Normal Speech Gait: Steady ED Course And Treatment O2 Sat by Pulse Oximetry: 98 Pulse Ox Interpretation: Normal - Radiology CXR: Interpreted by Me CXR Interpretation: Yes: No Acute Disease Progress Note: CXrays ordered and reviewed by me. No unremarkable findings. Patient given Rx for Albuterol, Ventolin, Tessalon Perles, and Prednisone. Patient instructed to follow up with PMD. Disposition Counseled Patient/Family Regarding: Studies Performed, Diagnosis, Need For Followup, Rx Given - Disposition Referrals: YOUR,PMD [Other] Disposition: HOME/ ROUTINE Disposition Time: 12:50 Condition: IMPROVED Prescriptions: Albuterol 0.083% [Albuterol Sulfate 3 Ml] 3 ml IH Q4 #30 neb Albuterol HFA [Ventolin HFA 90 mcg/actuation (8 g)] 1 puff IH Q4 #1 inhaler Benzonatate [Tessalon Perles] 200 mg PO TID PRN #15 sgl PRN Reason: Cough predniSONE [Prednisone] 60 mg PO DAILY #12 tab Instructions: Acute Bronchitis, Adult (DC) Forms: [facility] (Citizen [place]), Work Excuse - Clinical Impression Clinical Impression: Bronchitis, Asthma exacerbation - Scribe Statement The provider has reviewed the documentation as recorded by the Scribe Mary Kasper All medical record entries made by the Scribe were at my direction and personally dictated by me. I have reviewed the chart and agree that the record accurately reflects my personal performance of the history, physical exam, medical decision making, and the department course for this patient. I have also personally directed, reviewed, and agree with the discharge instructions and disposition.
[2017-11-06] MEDS ORDERED: Naproxen 550 mg Tab PO ONE (12:55)
[2017-11-06] MEDS ORDERED: Albuterol-Ipratrop 3 mg / 0.5 (3 ml) UD ONE (13:02)
--- NOTE | 2017-11-06 13:13 | RAD ---
HISTORY: COUGH COMPARISON: Comparison chest 05/18/2017. The the TECHNIQUE: Chest PA and lateral FINDINGS: LUNGS: Minor linear chronic atelectasis and/or scarring again noted left lung base. The interstitial markings are slightly increased and coarsened with a few scattered peribronchial cuffing changes. Rule out sequela of reactive/inflammatory airway disease or viral illness. PLEURA: No significant pleural effusion identified. No pneumothorax apparent. CARDIOVASCULAR: Normal. OSSEOUS STRUCTURES: No significant abnormalities. VISUALIZED UPPER ABDOMEN: Normal. OTHER FINDINGS: None. IMPRESSION: Minor linear chronic atelectasis and/or scarring again noted left lung base. The interstitial markings are slightly increased and coarsened with a few scattered peribronchial cuffing changes. Rule out sequela of reactive/inflammatory airway disease or viral illness.
== END 2017-11-06 13:20 | disposition home or self-care (01) ==
LOC: C.ER 11:41
DX: J45.901 Unspecified asthma with (acute) exacerbation (principal); E11.9 Type 2 diabetes mellitus without complications; I10 Essential (primary) hypertension; M06.9 Rheumatoid arthritis, unspecified; E78.00 Pure hypercholesterolemia, unspecified; Z72.0 Tobacco use

== ENCOUNTER 2017-11-10 14:14 | Inpatient (IN) | payer MEDICARE, OTHER ==
[2017-11-10 14:15] VITALS: BMI 30.1
[2017-11-10] MEDS ORDERED: Sodium Chloride 0.9% 1,000 ML IV ONE (15:19)
[2017-11-10] MEDS ORDERED: Albuterol-Ipratrop 3 mg / 0.5 (3 ml) UD IH STA (15:21)
[2017-11-10] MEDS ORDERED: Magnesium Sulfate 1 gm in D5W 1 GM/100 ML BAG IV ONE (15:22)
--- NOTE | 2017-11-10 15:35 | RAD ---
HISTORY: SOB COMPARISON: Chest radiograph dated 11/06/2017. TECHNIQUE: Chest PA and lateral FINDINGS: LUNGS: No active pulmonary disease. PLEURA: No significant pleural effusion identified. No pneumothorax apparent. CARDIOVASCULAR: Atherosclerotic aortic calcifications. Cardiomediastinal silhouette within normal limits. OSSEOUS STRUCTURES: Unchanged. VISUALIZED UPPER ABDOMEN: Normal. OTHER FINDINGS: None. IMPRESSION: No active disease.
[2017-11-10] MEDS ORDERED: Magnesium Sulfate 1 gm in D5W 2 GM/200 ML BAG IVPB ONE (15:41)
[2017-11-10] MEDS ORDERED: Sodium Chloride 0.9% 1,000 ML ONE (15:41)
[2017-11-10] MEDS ORDERED: cefTRIAXone IV 1 gm in Dextros 50 ML IVPB ONE (15:41)
--- NOTE | 2017-11-10 15:50 | C.PDOC ---
History Of Present Illness 51yo female, with history of CVA, asthma, diabetes, hypertension, comes to ER for evaluation of chest pain/tightness gradually worsening for past week. Patient states she was seen in this ER on 11/06 due to similar symptoms, was diagnosed with bronchitis, tx with nebulizer treatment and steroids without improvements. Pt describes chest discomfort as tightness " across the chest", intermittent wheezing and shortness of breath on exertion and has been unable to sleep due to dyspnea. Patient has a secondary complaint, stating she cut her left index finger a few days ago and now noticed swelling and redness; patient states she is concerned about infection. Pt denies any associated fever, headache, dizziness, diaphoresis, palpitations, abdominal pain, nausea, vomiting or discharge from wound. Using CPAP at home for sleep apnea. Time Seen by Provider: 11/10/17 14:45 Chief Complaint (Nursing): Respiratory Distress History Per: Patient History/Exam Limitations: no limitations Onset/Duration Of Symptoms: Days Associated Symptoms: denies: Fever, Chills, Chest Pain, Dizziness Past Medical History Reviewed: Historical Data, Nursing Documentation, Vital Signs Vital Signs: Last Vital Signs Temp 98.5 F 11/10/17 14:21 Pulse 95 H 11/10/17 14:21 Resp 20 11/10/17 14:21 BP 132/72 11/10/17 14:21 Pulse Ox 95 11/10/17 17:20 - Medical History PMH: Anemia, Anxiety, Asthma, Back Problems, Bronchitis, CVA, Diabetes, HTN, Hypercholesterolemia, Osteoporosis, Rheumatoid Arthritis Denies: Chronic Kidney Disease Surgical History: Denies: CABG (Cathetherization) Family History: States: Unknown Family Hx - Social History Hx Tobacco Use: Yes Hx Alcohol Use: Yes Hx Substance Use: No - Immunization History Hx Tetanus Toxoid Vaccination: No Hx Influenza Vaccination: Yes (2017) Hx Pneumococcal Vaccination: No Review Of Systems Except As Marked, All Systems Reviewed And Found Negative. Constitutional: Negative for: Fever, Chills Cardiovascular: Positive for: Other (tightness). Negative for: Chest Pain, Palpitations Respiratory: Positive for: Shortness of Breath, Wheezing Gastrointestinal: Negative for: Nausea, Vomiting, Abdominal Pain Skin: Positive for: Other (laceration to left 2nd digit) Neurological: Negative for: Dizziness Physical Exam - Physical Exam Appears: Well, Non-toxic, No Acute Distress Skin: Normal Color, Warm, Dry, Other (small superficial laceration on tip of left 2nd index finger. healing well, mild edema and erythema noted. no wound discharge or proximal streaking.) Head: Normacephalic Eye(s): bilateral: PERRL Nose: No Flaring, No Discharge Oral Mucosa: Moist, No Drooling Throat: No Drooling Neck: Trachea Midline, Supple Chest: Symmetrical Cardiovascular: Rhythm Regular, No Murmur, No JVD, Other ((-) carotid bruits B/L ) Respiratory: No Decreased Breath Sounds, No Accessory Muscle Use, No Rales, No Rhonchi, No Stridor, Wheezing (bilateral diffuse expiratory wheezing) Gastrointestinal/Abdominal: Soft, No Tenderness, No Distention, No Guarding Extremity: Normal ROM, No Deformity, No Swelling Neurological/Psych: Oriented x3, Normal Speech ED Course And Treatment - Laboratory Results Result Diagrams: 11/10/17 16:11 11/10/17 16:11 Lab Interpretation: Abnormal ECG: Interpreted By Me, Viewed By Me ECG Rhythm: Sinus Rhythm ECG Interpretation: No Changes From Prior (05/2017) Interpretation Of ECG: SR@92/min, NAD, no acute T wave or ST-T changes. O2 Sat by Pulse Oximetry: 95 (RA) Pulse Ox Interpretation: Normal - Radiology CXR: Interpreted by Me, Read By Radiologist CXR Interpretation: Yes: No Acute Disease Progress Note: Labs, EKG and Urinalysis ordered. Patient given Duoneb, Solumedrol, IV fluids, IV Magnesium, IV Rocephin. 448 pm pt with multiple medical problems and multiple risk factors for cad with active chest pain, diffuse B/L expiratory wheezing, failed outpt tx for asthmabronchitis, concern for angina, nstemi, COPD w/acute exacerbation. pt still having chest pain, and SOB, and having anxiety attack. [address] Tovar, will admit to his service. 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 - Scribe Statement The provider has reviewed the documentation as recorded by the Scribe (Emerald Belcher) Provider Attestation: All medical record entries made by the Scribe were at my direction and personally dictated by me. I have reviewed the chart and agree that the record accurately reflects my personal performance of the history, physical exam, medical decision making, and the department course for this patient. I have also personally directed, reviewed, and agree with the discharge instructions and disposition.
[2017-11-10] MEDS ORDERED: Albuterol-Ipratrop 3 mg / 0.5 (3 ml) UD ONE (15:54)
[2017-11-10 16:14] LABS: BASO # 0.1 K/uL (0.0-0.2); BASO % 0.8 % (0.0-2.0); EOS % 0.3 % (0.0-4.0); HEMOGLOBIN 13.4 g/dL (11.0-16.0); LYMPH % 7.7 % (20.0-40.0); MEAN CORPUSCULAR HGB CONC 33.4 g/dL (33.0-37.0); MEAN PLATELET VOLUME 9.4 fL (7.2-11.7); MONO # 0.2 K/uL (0.0-0.8); MONO % 1.4 % (0.0-10.0); NEUT # 12.1 K/uL (1.8-7.0); NEUT % 89.8 % (50.0-75.0); NRBC % 0.1 % (0.0-2.0); PLATELET COUNT 261 K/uL (130-400); RBC 4.63 Mil/uL (3.80-5.20); RED CELL DISTRIBUTION WIDTH 14.3 % (11.5-14.5); WHITE BLOOD COUNT 13.5 K/uL (4.8-10.8)
[2017-11-10 16:21] LABS: SQUAMOUS EPITHIAL 12 /hpf (0-5); URINE BILIRUBIN NEGATIVE (NEGATIVE); URINE BLOOD NEGATIVE (NEGATIVE); URINE CLARITY Clear (Clear); URINE COLOR Yellow (YELLOW); URINE GLUCOSE (UA) 3+ mg/dL (Normal); URINE LEUKOCYTE ESTERASE NEG Leu/uL (Negative); URINE PROTEIN NEGATIVE (NEGATIVE); URINE UROBILINOGEN NORMAL mg/dL (0.2-1.0)
[2017-11-10 16:23] LABS: PROTHROMBIN TIME 10.4 SECONDS (9.7-12.2)
[2017-11-10 16:33] LABS: GFR AFRICAN-AMERICAN > 60; GFR NON-AFRICAN AMERICAN > 60
[2017-11-10 16:39] LABS: ALB/GLOB RATIO 1.4 (1.0-2.1); ALBUMIN 4.8 g/dL (3.5-5.0); ALT/SGPT 24 U/L (9-52); AST/SGOT 63 U/L (14-36); BLOOD UREA NITROGEN 14 mg/dL (7-17)
[2017-11-10 16:44] LABS: B-TYPE NATRIURETIC PEPTIDE 57.7 pg/mL (0-900)
[2017-11-10] MEDS ORDERED: Albuterol-Ipratrop 3 mg / 0.5 (3 ml) UD INH STA (17:58)
[2017-11-10 19:05] LABS: BANDS 1 % (0-2); LYMPHOCYTE 10 % (20-40); MONOCYTE 1 % (0-10); NEUTROPHIL 88 % (50-75); TOTAL CELLS COUNTED 100
[2017-11-10 19:06] LABS: PLATELET ESTIMATE NORMAL (NORMAL)
[2017-11-10] MEDS ORDERED: (Novolog) Insulin Aspart, Recombinant 100 u/ml 10 ml vial SC STA (20:11)
[2017-11-10] MEDS ORDERED: Home Med 1 UNIT (Alprazolam [Xanax] 2 MG) PO PRN (20:15)
[2017-11-10] MEDS ORDERED: Home Med 1 UNIT (Oxycodone Hcl/Acetaminophen [Percocet 10-325 Mg Tablet] 1 EACH) PO PRN ×2 (20:15→20:48)
[2017-11-10] MEDS ORDERED: (Novolog) Insulin Aspart, Recombinant 100 u/ml 10 ml vial ONE (20:26)
[2017-11-10] MEDS: (Novolog) Insulin Aspart, Recombinant 100 u/ml 10 ml vial SC SCH (20:56)
[2017-11-10] MEDS: Azithromycin 500 MG in Sodium Chloride 0.9% 250 ML IVPB SCH (22:27)
[2017-11-10] MEDS: MethylPREDNISolone 40 mg Vial IVP SCH (23:45)
[2017-11-10] MEDS: Oxycodone/Acetaminophen 5/325 mg Tab PO PRN (23:46)
[2017-11-11] MEDS: Albuterol-Ipratrop 3 mg / 0.5 (3 ml) UD INH SCH ×7 (00:27→23:48)
[2017-11-11] MEDS: Oxycodone/Acetaminophen 5/325 mg Tab PO PRN ×3 (05:50→22:28)
[2017-11-11] MEDS: MethylPREDNISolone 40 mg Vial IVP SCH ×3 (05:50→17:45)
[2017-11-11] MEDS: (Novolog) Insulin Aspart, Recombinant 100 u/ml 10 ml vial SC SCH ×4 (08:46→22:20)
[2017-11-11] MEDS: Enoxaparin 40 mg Syringe SC SCH (09:17)
[2017-11-11] MEDS: Promethazine 12.5 mg/10 ml Syrup PO PRN (10:30)
[2017-11-11] MEDS ORDERED: (Novolog) Insulin Aspart, Recombinant 100 u/ml 10 ml vial SC SCH (16:30)
[2017-11-11] MEDS: Bacitracin Ointment 30 GM TUBE TOP SCH (17:46)
[2017-11-11] MEDS ORDERED: Home Med 1 UNIT (Zolpidem [Ambien] 10 MG) PO SCH (18:00)
--- NOTE | 2017-11-11 19:16 | CP.PCM.HP ---
Past Patient History - Past Medical History & Family History Past Medical History?: Yes - Past Social History Smoking Status: Current Some Days Smoker - CARDIAC Hx Hypercholesterolemia: Yes Hx Hypertension: Yes - PULMONARY Hx Asthma: Yes Hx Bronchitis: Yes - NEUROLOGICAL HX Cerebrovascular Accident: Yes (Apirl 2017) - HEENT Hx HEENT Problems: Yes Other/Comment: wears contacts all the time - RENAL Hx Chronic Kidney Disease: No - ENDOCRINE/METABOLIC Hx Endocrine Disorders: Yes Hx Diabetes Mellitus Type 1: Yes (''ONLY WHEN NEEDED'') Hx Diabetes Mellitus Type 2: Yes - HEMATOLOGICAL/ONCOLOGICAL Hx Anemia: Yes - INTEGUMENTARY Hx Dermatological Problems: No - MUSCULOSKELETAL/RHEUMATOLOGICAL Hx Falls: No Hx Osteoporosis: Yes Hx Rheumatoid Arthritis: Yes - GASTROINTESTINAL Hx Gastrointestinal Disorders: No - GENITOURINARY/GYNECOLOGICAL Hx Genitourinary Disorders: No - PSYCHIATRIC Hx Anxiety: Yes Hx Substance Use: No - SURGICAL HISTORY Hx Coronary Artery Bypass Graft: No (Cathetherization) - ANESTHESIA Hx Anesthesia: Yes Hx Anesthesia Reactions: No Hx Malignant Hyperthermia: No Has any member of the family had a problem w/ anesthesia?: No Meds Allergies/Adverse Reactions: Allergies Allergy/AdvReac Type Severity Reaction Status Date / Time clopidogrel bisulfate Allergy SHORTNESS Verified 11/10/17 14:26 [From Plavix] OF BREATH Results - Vital Signs Recent Vital Signs: Last Vital Signs Temp 97.8 F 11/11/17 15:29 Pulse 90 11/11/17 15:29 Resp 20 11/11/17 15:29 BP 113/72 11/11/17 15:29 Pulse Ox 97 11/11/17 15:29 - Labs Result Diagrams: 11/10/17 16:11 11/10/17 16:11 Labs: Laboratory Results - last 24 hr 11/10/17 11/11/17 11/11/17 22:31 06:47 11:35 POC Glucose (mg/dL) 331 H 388 H 468 H* Hemoglobin A1c Troponin I 11/11/17 11/11/17 11/11/17 12:58 14:55 16:49 POC Glucose (mg/dL) 443 H* Hemoglobin A1c 9.9 H Troponin I < 0.0120
[2017-11-11] MEDS: Azithromycin 500 MG in Sodium Chloride 0.9% 250 ML IVPB SCH (22:19)
[2017-11-12] MEDS: MethylPREDNISolone 40 mg Vial IVP SCH ×4 (00:32→18:00)
[2017-11-12] MEDS: (Novolog) Insulin Aspart, Recombinant 100 u/ml 10 ml vial SC SCH ×5 (02:27→21:54)
[2017-11-12] MEDS: Albuterol-Ipratrop 3 mg / 0.5 (3 ml) UD INH SCH ×5 (03:14→19:35)
[2017-11-12] MEDS: Oxycodone/Acetaminophen 5/325 mg Tab PO PRN (10:00)
[2017-11-12] MEDS: Enoxaparin 40 mg Syringe SC SCH (10:03)
[2017-11-12] MEDS: Bacitracin Ointment 30 GM TUBE TOP SCH ×2 (10:52→17:57)
--- NOTE | 2017-11-12 14:01 | CP.PCM.CON ---
History of Present Illness - History of Present Illness History of Present Illness: PGY-[address] Hines's service Ms. Harris is a 51 yo F, with PMHx of CVA (1st episode ~20 years ago, 2nd episode: 2 months ago), asthma, diabetes, and HTN who presented to the ED for evaluation of chest pain/tightness gradually worsening for the past week. Pt described chest discomfort as tightness " across the chest", intermittent wheezing and SOB on exertion and has been unable to sleep due to dyspnea. Of note, patient says she was examined here in the ED on 11/06 for similar symptoms and was diagnosed with bronchitis. Neurology consulted for episode of dizziness and confusion that occurred yesterday. As per patient, she began having crushing L sided headache accompanied by shaking and tremors to her L upper and lower extremities. Episode was witnessed by her who endorsed shaking lasted for ~4-5 minutes. Patient states she does not recall the episode herself and had momentary confusion after the episode where she was disoriented to person, place, and time. Patient today continues to endorse crushing L sided headache, R ear tinnitus which began yesterday, blurry vision, and generalized L sided weakness. PMHx: Anemia, Anxiety, Asthma, Back Problems, Bronchitis, CVA, Diabetes, HTN, Hypercholesterolemia, Osteoporosis, Rheumatoid Arthritis PSHx: Denies: CABG (Cathetherization) FHx: unknown Social Hx: Endorses tobacco, alcohol use; no drug use Allergies: clopidogrel (shortness of breath) Medications: reviewed, including gabapentin 600 mg PO TID, aprazolam 2 mg PO q6 PRN, ambien 5 mg PO HS PRN Review of Systems - Constitutional Constitutional: Excessive Sweating, Fatigue, Headache, Weakness - EENT Eyes: Blurred Vision Ears: Tinnitus, Disequilibrium, Dizziness - Neurological Neurological: Confusion, Dizziness, Numbness, Headaches, Lack of Coordination, Sensory Deficit, Tingling, Weakness Past Patient History - Past Medical History & Family History Past Medical History?: Yes - Past Social History Smoking Status: Current Some Days Smoker - CARDIAC Hx Hypercholesterolemia: Yes Hx Hypertension: Yes - PULMONARY Hx Asthma: Yes Hx Bronchitis: Yes - NEUROLOGICAL HX Cerebrovascular Accident: Yes (Apirl 2018) - HEENT Hx HEENT Problems: Yes Other/Comment: wears contacts all the time - RENAL Hx Chronic Kidney Disease: No - ENDOCRINE/METABOLIC Hx Endocrine Disorders: Yes Hx Diabetes Mellitus Type 1: Yes (''ONLY WHEN NEEDED'') Hx Diabetes Mellitus Type 2: Yes - HEMATOLOGICAL/ONCOLOGICAL Hx Anemia: Yes - INTEGUMENTARY Hx Dermatological Problems: No - MUSCULOSKELETAL/RHEUMATOLOGICAL Hx Falls: No Hx Osteoporosis: Yes Hx Rheumatoid Arthritis: Yes - GASTROINTESTINAL Hx Gastrointestinal Disorders: No - GENITOURINARY/GYNECOLOGICAL Hx Genitourinary Disorders: No - PSYCHIATRIC Hx Anxiety: Yes Hx Substance Use: No - SURGICAL HISTORY Hx Coronary Artery Bypass Graft: No (Cathetherization) - ANESTHESIA Hx Anesthesia: Yes Hx Anesthesia Reactions: No Hx Malignant Hyperthermia: No Has any member of the family had a problem w/ anesthesia?: No Meds Allergies/Adverse Reactions: Allergies Allergy/AdvReac Type Severity Reaction Status Date / Time clopidogrel bisulfate Allergy SHORTNESS Verified 11/10/17 14:26 [From Plavix] OF BREATH - Medications Medications: Current Medications Albuterol/Ipratropium (Duoneb 3 Mg/0.5 Mg (3 Ml) Ud) 3 ml INH RQ4 [facility] Last Admin: 11/12/17 07:50 Dose: 3 ml Alprazolam (Xanax) 2 mg PO Q6 PRN PRN Reason: Anxiety Last Admin: 11/12/17 04:46 Dose: 2 mg Amlodipine Besylate (Norvasc) 10 mg PO DAILY [facility] Last Admin: 11/12/17 10:00 Dose: 10 mg Aspirin (Ecotrin) 81 mg PO DAILY [facility] Last Admin: 11/12/17 10:00 Dose: 81 mg Bacitracin (Bacitracin) 1 gm TOP BID [facility] Last Admin: 11/12/17 10:52 Dose: 1 applic Enoxaparin Sodium (Lovenox) 40 mg SC DAILY [facility] Last Admin: 11/12/17 10:03 Dose: 40 mg Gabapentin (Neurontin) 600 mg PO TID [facility] Last Admin: 11/12/17 10:00 Dose: 600 mg Azithromycin 500 mg/ Sodium (Chloride) 250 mls @ 167 mls/hr IVPB Q24H [facility] PRN Reason: Protocol Last Admin: 11/11/17 22:19 Dose: 167 mls/hr Insulin Aspart (Novolog) 0 unit SC ACHS [facility] PRN Reason: Protocol Last Admin: 11/12/17 12:24 Dose: 12 units Lorazepam (Ativan) 1 mg IVP ONCE ONE Stop: 11/12/17 14:01 Losartan Potassium (Cozaar) 100 mg PO DAILY [facility] Last Admin: 11/12/17 10:00 Dose: 100 mg Metformin HCl (Glucophage) 1,000 mg PO BID [facility] Last Admin: 11/12/17 10:00 Dose: 1,000 mg Methylprednisolone (Solu-Medrol) 60 mg IVP Q6 [facility] Last Admin: 11/12/17 12:24 Dose: 60 mg Oxycodone/Acetaminophen (Percocet 5/325 Mg Tab) 1 tab PO Q6H PRN PRN Reason: Pain, moderate (4-7) Stop: 11/13/17 20:50 Last Admin: 11/12/17 10:00 Dose: 1 tab Pantoprazole Sodium (Protonix Inj) 40 mg IVP DAILY [facility] Last Admin: 11/12/17 10:49 Dose: 40 mg Promethazine HCl (Phenergan Syrup) 12.5 mg PO Q6 PRN PRN Reason: Shortness of Breath Last Admin: 11/11/17 10:30 Dose: 12.5 mg Rosuvastatin Calcium (Crestor) 10 mg PO HS [facility] Last Admin: 11/11/17 22:18 Dose: 10 mg Sitagliptin Phosphate (Januvia) 50 mg PO ACB [facility] Last Admin: 11/12/17 08:36 Dose: 50 mg Zolpidem Tartrate (Ambien) 5 mg PO HS PRN PRN Reason: Insomnia Last Admin: 11/11/17 22:18 Dose: 5 mg Physical Exam - Constitutional Appears: In Acute Distress - Head Exam Head Exam: ATRAUMATIC, NORMAL INSPECTION, NORMOCEPHALIC - Eye Exam Eye Exam: EOMI, Normal appearance. absent: Nystagmus Pupil Exam: NORMAL ACCOMODATION, PERRL - ENT Exam ENT Exam: Normal Exam - Neck Exam Neck exam: Positive for: Normal Inspection - Respiratory Exam Respiratory Exam: Wheezes - Cardiovascular Exam Cardiovascular Exam: REGULAR RHYTHM - Extremities Exam Extremities exam: Positive for: normal inspection - Neurological Exam Neurological exam: Alert, CN II-XII Intact, Oriented x3 - Expanded Neurological Exam Expanded Cranial nerves: EOM's Intact: Normal, Facial Palsey w/Forehead Movement: Normal , Facial Palsey w/o Forehead Movement: Normal, Facial Sensation: Abnormal Left, Nystagmus: Normal, Tongue Deviation: Normal Sensory exam: Lower Extremity Light Touch: Abnormal Left, Upper Extremity Light Touch: Normal Neuro motor strength exam: Left Upper Extremity: 3, Right Upper Extremity: 4, Left Lower Extremity: 3, Right Lower Extremity: 4 - Psychiatric Exam Psychiatric exam: Anxious, Depressed - Skin Skin Exam: Diaphoretic Results - Vital Signs Recent Vital Signs: Last Vital Signs Temp 97.7 F 11/12/17 07:00 Pulse 99 H 11/12/17 09:59 Resp 20 11/12/17 09:59 BP 125/72 11/12/17 09:59 Pulse Ox 95 11/12/17 09:59 - Labs Result Diagrams: 11/10/17 16:11 11/10/17 16:11 Labs: Laboratory Results - last 24 hr 11/11/17 11/11/17 11/11/17 12:58 14:55 16:49 POC Glucose (mg/dL) 443 H* Hemoglobin A1c 9.9 H Troponin I < 0.0120 11/11/17 11/12/17 11/12/17 21:04 02:09 06:52 POC Glucose (mg/dL) 370 H 394 H 406 H* Hemoglobin A1c Troponin I 11/12/17 10:57 POC Glucose (mg/dL) > 500 H* Hemoglobin A1c Troponin I Assessment & Plan - Assessment and Plan (Free Text) Assessment: 51 yo F, with PMHx of CVA (1st episode ~20 years ago, 2nd episode: 2 months ago), asthma, diabetes, and HTN who presented to the ED for evaluation of chest pain/tightness gradually worsening for the past week. Neurology consulted for episode of dizziness and syncope. Plan: 1. Syncope, confusion --CT head: no acute infarcts --CTA head/neck --MRA head/neck --MRI brain --Bedside EEG Management as per Dr. Hines
--- NOTE | 2017-11-12 17:06 | CT ---
PROCEDURE: CT HEAD WITHOUT CONTRAST. HISTORY: headache and L side weakness COMPARISON: None available. TECHNIQUE: Axial computed tomography images were obtained through the head/brain without intravenous contrast. Radiation dose: Total exam DLP = 1140.5 mGy-cm. This CT exam was performed using one or more of the following dose reduction techniques: Automated exposure control, adjustment of the mA and/or kV according to patient size, and/or use of iterative reconstruction technique. FINDINGS: HEMORRHAGE: No intracranial hemorrhage. BRAIN: No mass effect or edema. No atrophy or chronic microvascular ischemic changes. VENTRICLES: Unremarkable. No hydrocephalus. CALVARIUM: Unremarkable. PARANASAL SINUSES: Unremarkable as visualized. No significant inflammatory changes. MASTOID AIR CELLS: Unremarkable as visualized. No inflammatory changes. OTHER FINDINGS: None. IMPRESSION: No acute intracranial pathology.
--- NOTE | 2017-11-12 18:47 | CP.PCM.PN ---
Subjective - Date & Time of Evaluation Date of Evaluation: 11/12/17 Time of Evaluation: 17:00 - Subjective Subjective: PGY-1 Neurology f/u for Dr. Hines's service This afternoon when examining patient with Dr. Hines, patient endorsed seeing a little girl with blonde hair during her CT exam, saying "she just wants to make sure I'm alright". Patient admits to having hallucinations in the past associated with depression. She was visibly upset while describing her symptoms and cried during our exam. Objective - Vital Signs/Intake and Output Vital Signs (last 24 hours): Temp Pulse Resp BP Pulse Ox 98.4 F 82 20 123/76 99 11/12/17 15:55 11/12/17 15:55 11/12/17 15:55 11/12/17 15:55 11/12/17 15:55 Intake and Output: 11/12/17 11/12/17 06:59 18:59 Intake Total 20 Balance 20 - Medications Medications: Current Medications Albuterol/Ipratropium (Duoneb 3 Mg/0.5 Mg (3 Ml) Ud) 3 ml INH RQ4 [facility] Last Admin: 11/12/17 15:45 Dose: 3 ml Alprazolam (Xanax) 2 mg PO Q6 PRN PRN Reason: Anxiety Last Admin: 11/12/17 14:30 Dose: 2 mg Amlodipine Besylate (Norvasc) 10 mg PO DAILY [facility] Last Admin: 11/12/17 10:00 Dose: 10 mg Aspirin (Ecotrin) 81 mg PO DAILY [facility] Last Admin: 11/12/17 10:00 Dose: 81 mg Bacitracin (Bacitracin) 1 gm TOP BID [facility] Last Admin: 11/12/17 17:57 Dose: 1 applic Enoxaparin Sodium (Lovenox) 40 mg SC DAILY [facility] Last Admin: 11/12/17 10:03 Dose: 40 mg Gabapentin (Neurontin) 600 mg PO TID [facility] Last Admin: 11/12/17 18:06 Dose: 600 mg Azithromycin 500 mg/ Sodium (Chloride) 250 mls @ 167 mls/hr IVPB Q24H [facility] PRN Reason: Protocol Last Admin: 11/11/17 22:19 Dose: 167 mls/hr Insulin Aspart (Novolog) 0 unit SC ACHS [facility] PRN Reason: Protocol Last Admin: 11/12/17 17:59 Dose: 10 units Lorazepam (Ativan) 1 mg IVP ONCE ONE Stop: 11/13/17 08:31 Losartan Potassium (Cozaar) 100 mg PO DAILY [facility] Last Admin: 11/12/17 10:00 Dose: 100 mg Metformin HCl (Glucophage) 1,000 mg PO BID [facility] Last Admin: 11/12/17 17:58 Dose: 1,000 mg Methylprednisolone (Solu-Medrol) 60 mg IVP Q6 [facility] Last Admin: 11/12/17 18:00 Dose: 60 mg Oxycodone/Acetaminophen (Percocet 5/325 Mg Tab) 1 tab PO Q6H PRN PRN Reason: Pain, moderate (4-7) Stop: 11/13/17 20:50 Last Admin: 11/12/17 10:00 Dose: 1 tab Pantoprazole Sodium (Protonix Inj) 40 mg IVP DAILY [facility] Last Admin: 11/12/17 10:49 Dose: 40 mg Promethazine HCl (Phenergan Syrup) 12.5 mg PO Q6 PRN PRN Reason: Shortness of Breath Last Admin: 11/11/17 10:30 Dose: 12.5 mg Rosuvastatin Calcium (Crestor) 10 mg PO HS [facility] Last Admin: 11/11/17 22:18 Dose: 10 mg Sitagliptin Phosphate (Januvia) 50 mg PO ACB [facility] Last Admin: 11/12/17 08:36 Dose: 50 mg Zolpidem Tartrate (Ambien) 5 mg PO HS PRN PRN Reason: Insomnia Last Admin: 11/11/17 22:18 Dose: 5 mg - Labs Labs: 11/10/17 16:11 11/10/17 16:11 PT 10.4 SECONDS (9.7-12.2) 11/10/17 16:11 INR 1.0 11/10/17 16:11 APTT 31 SECONDS (21-34) 11/10/17 16:11 - Constitutional Appears: In Acute Distress - Head Exam Head Exam: NORMAL INSPECTION - Eye Exam Eye Exam: EOMI, Normal appearance Pupil Exam: NORMAL ACCOMODATION - Neurological Exam Neurological Exam: Alert, Awake, CN II-XII Intact, Oriented x3 Additional comments: No acute neurological changes - Psychiatric Exam Psychiatric exam: Anxious, Depressed Assessment and Plan - Assessment and Plan (Free Text) Assessment: 51 yo F, with PMHx of CVA (1st episode ~20 years ago, 2nd episode: 2 months ago), asthma, diabetes, and HTN who presented to the ED for evaluation of chest pain/tightness gradually worsening for the past week. Neurology consulted for episode of dizziness and syncope. Symptoms may partially be explained due to psych component. Further workup needed. Plan: 1. Syncope, confusion --CT head: no acute infarcts --CTA head/neck --MRA head/neck --MRI brain --Bedside EEG Management as per Dr. Hines
--- NOTE | 2017-11-12 19:05 | CP.PCM.PN ---
Subjective - Date & Time of Evaluation Date of Evaluation: 11/12/17 Time of Evaluation: 19:05 Objective - Vital Signs/Intake and Output Vital Signs (last 24 hours): Temp Pulse Resp BP Pulse Ox 98.4 F 82 20 123/76 99 11/12/17 15:55 11/12/17 15:55 11/12/17 15:55 11/12/17 15:55 11/12/17 15:55 - Medications Medications: Current Medications Albuterol/Ipratropium (Duoneb 3 Mg/0.5 Mg (3 Ml) Ud) 3 ml INH RQ4 [facility] Last Admin: 11/12/17 15:45 Dose: 3 ml Alprazolam (Xanax) 2 mg PO Q6 PRN PRN Reason: Anxiety Last Admin: 11/12/17 14:30 Dose: 2 mg Amlodipine Besylate (Norvasc) 10 mg PO DAILY [facility] Last Admin: 11/12/17 10:00 Dose: 10 mg Aspirin (Ecotrin) 81 mg PO DAILY [facility] Last Admin: 11/12/17 10:00 Dose: 81 mg Bacitracin (Bacitracin) 1 gm TOP BID [facility] Last Admin: 11/12/17 17:57 Dose: 1 applic Enoxaparin Sodium (Lovenox) 40 mg SC DAILY [facility] Last Admin: 11/12/17 10:03 Dose: 40 mg Gabapentin (Neurontin) 600 mg PO TID [facility] Last Admin: 11/12/17 18:06 Dose: 600 mg Azithromycin 500 mg/ Sodium (Chloride) 250 mls @ 167 mls/hr IVPB Q24H [facility] PRN Reason: Protocol Last Admin: 11/11/17 22:19 Dose: 167 mls/hr Insulin Aspart (Novolog) 0 unit SC ACHS [facility] PRN Reason: Protocol Last Admin: 11/12/17 17:59 Dose: 10 units Lorazepam (Ativan) 1 mg IVP ONCE ONE Stop: 11/13/17 08:31 Losartan Potassium (Cozaar) 100 mg PO DAILY [facility] Last Admin: 11/12/17 10:00 Dose: 100 mg Metformin HCl (Glucophage) 1,000 mg PO BID [facility] Last Admin: 11/12/17 17:58 Dose: 1,000 mg Methylprednisolone (Solu-Medrol) 60 mg IVP Q6 [facility] Last Admin: 11/12/17 18:00 Dose: 60 mg Oxycodone/Acetaminophen (Percocet 5/325 Mg Tab) 1 tab PO Q6H PRN PRN Reason: Pain, moderate (4-7) Stop: 11/13/17 20:50 Last Admin: 11/12/17 10:00 Dose: 1 tab Pantoprazole Sodium (Protonix Inj) 40 mg IVP DAILY [facility] Last Admin: 11/12/17 10:49 Dose: 40 mg Promethazine HCl (Phenergan Syrup) 12.5 mg PO Q6 PRN PRN Reason: Shortness of Breath Last Admin: 11/11/17 10:30 Dose: 12.5 mg Rosuvastatin Calcium (Crestor) 10 mg PO HS [facility] Last Admin: 11/11/17 22:18 Dose: 10 mg Sitagliptin Phosphate (Januvia) 50 mg PO ACB [facility] Last Admin: 11/12/17 08:36 Dose: 50 mg Zolpidem Tartrate (Ambien) 5 mg PO HS PRN PRN Reason: Insomnia Last Admin: 11/11/17 22:18 Dose: 5 mg - Labs Labs: 11/10/17 16:11 11/10/17 16:11 PT 10.4 SECONDS (9.7-12.2) 11/10/17 16:11 INR 1.0 11/10/17 16:11 APTT 31 SECONDS (21-34) 11/10/17 16:11
[2017-11-12] MEDS: Azithromycin 500 MG in Sodium Chloride 0.9% 250 ML IVPB SCH (21:52)
[2017-11-13] MEDS: MethylPREDNISolone 40 mg Vial IVP SCH ×4 (00:10→21:55)
[2017-11-13] MEDS: Albuterol-Ipratrop 3 mg / 0.5 (3 ml) UD INH SCH ×6 (00:51→19:50)
[2017-11-13] MEDS: (Novolog) Insulin Aspart, Recombinant 100 u/ml 10 ml vial SC SCH ×4 (08:10→21:47)
--- NOTE | 2017-11-13 09:40 | CP.PCM.PN ---
Subjective - Date & Time of Evaluation Date of Evaluation: 11/13/17 Time of Evaluation: 09:40 Objective - Vital Signs/Intake and Output Vital Signs (last 24 hours): Temp Pulse Resp BP Pulse Ox 97.8 F 81 20 129/82 98 11/13/17 07:00 11/13/17 07:00 11/13/17 07:00 11/13/17 07:00 11/13/17 07:00 Intake and Output: 11/13/17 11/13/17 06:59 18:59 Intake Total 60 Balance 60 - Medications Medications: Current Medications Albuterol/Ipratropium (Duoneb 3 Mg/0.5 Mg (3 Ml) Ud) 3 ml INH RQ4 [facility] Last Admin: 11/13/17 07:25 Dose: 3 ml Alprazolam (Xanax) 2 mg PO Q6 PRN PRN Reason: Anxiety Last Admin: 11/12/17 14:30 Dose: 2 mg Amlodipine Besylate (Norvasc) 10 mg PO DAILY [facility] Last Admin: 11/12/17 10:00 Dose: 10 mg Aspirin (Ecotrin) 81 mg PO DAILY [facility] Last Admin: 11/12/17 10:00 Dose: 81 mg Bacitracin (Bacitracin) 1 gm TOP BID [facility] Last Admin: 11/12/17 17:57 Dose: 1 applic Enoxaparin Sodium (Lovenox) 40 mg SC DAILY [facility] Last Admin: 11/12/17 10:03 Dose: 40 mg Gabapentin (Neurontin) 600 mg PO TID [facility] Last Admin: 11/12/17 18:06 Dose: 600 mg Azithromycin 500 mg/ Sodium (Chloride) 250 mls @ 167 mls/hr IVPB Q24H [facility] PRN Reason: Protocol Last Admin: 11/12/17 21:52 Dose: 167 mls/hr Insulin Aspart (Novolog) 0 unit SC ACHS [facility] PRN Reason: Protocol Last Admin: 11/13/17 08:10 Dose: 8 units Losartan Potassium (Cozaar) 100 mg PO DAILY [facility] Last Admin: 11/12/17 10:00 Dose: 100 mg Metformin HCl (Glucophage) 1,000 mg PO BID [facility] Last Admin: 11/12/17 17:58 Dose: 1,000 mg Methylprednisolone (Solu-Medrol) 60 mg IVP Q6 [facility] Last Admin: 11/13/17 06:00 Dose: 60 mg Oxycodone/Acetaminophen (Percocet 5/325 Mg Tab) 1 tab PO Q6H PRN PRN Reason: Pain, moderate (4-7) Stop: 11/13/17 20:50 Last Admin: 11/12/17 10:00 Dose: 1 tab Pantoprazole Sodium (Protonix Inj) 40 mg IVP DAILY [facility] Last Admin: 11/12/17 10:49 Dose: 40 mg Promethazine HCl (Phenergan Syrup) 12.5 mg PO Q6 PRN PRN Reason: Shortness of Breath Last Admin: 11/11/17 10:30 Dose: 12.5 mg Rosuvastatin Calcium (Crestor) 10 mg PO HS [facility] Last Admin: 11/12/17 21:52 Dose: 10 mg Sitagliptin Phosphate (Januvia) 50 mg PO ACB [facility] Last Admin: 11/13/17 08:09 Dose: 50 mg Zolpidem Tartrate (Ambien) 5 mg PO HS PRN PRN Reason: Insomnia Last Admin: 11/11/17 22:18 Dose: 5 mg - Labs Labs: 11/10/17 16:11 11/10/17 16:11 PT 10.4 SECONDS (9.7-12.2) 11/10/17 16:11 INR 1.0 11/10/17 16:11 APTT 31 SECONDS (21-34) 11/10/17 16:11
[2017-11-13] MEDS: Promethazine 12.5 mg/10 ml Syrup PO PRN (10:03)
[2017-11-13] MEDS: Enoxaparin 40 mg Syringe SC SCH (10:08)
[2017-11-13] MEDS: Bacitracin Ointment 30 GM TUBE TOP SCH ×2 (13:30→17:50)
--- NOTE | 2017-11-13 14:20 | MRI ---
PROCEDURE: MRI BRAIN WITHOUT CONTRAST HISTORY: syncope COMPARISON: Correlation made with concurrent MRA neck and brain and prior CT scan brain 11/12/2017. TECHNIQUE: Multiplanar, multisequence MR images of the brain were obtained without intravenous contrast enhancement. FINDINGS: HEMORRHAGE: No acute parenchymal, subarachnoid or extra-axial hemorrhage. No evidence of hemosiderin deposition identified on gradient echo weighted sequence. DWI: No evidence of an acute or early subacute infarction seen on diffusion imaging. BRAIN PARENCHYMA: Minor slightly confluent prolonged T2 signal changes in the perifrontal horn white matter nonspecific. Changes may represent a combination of the minor chronic periventricular white matter ischemic changes and some FLAIR related CSF interface artifact. No obvious parenchymal nor extra-axial mass or collection seen on this noncontrast study. Ventricular and sulcal size are normal. VENTRICLES: No obstructive hydrocephalus. CRANIUM: Unremarkable. ORBITS: Grossly unremarkable. PARANASAL SINUSES/MASTOIDS: Clear VASCULAR SYSTEM: Visualized major vascular flow voids at skull base patent OTHER FINDINGS: None. IMPRESSION: No acute intracranial hemorrhage or infarct. Minor slightly confluent prolonged T2 signal changes in the perifrontal horn white matter nonspecific. Changes may represent a combination of the minor chronic periventricular white matter ischemic changes and some FLAIR related CSF interface artifact.
--- NOTE | 2017-11-13 14:27 | MRI ---
PROCEDURE: MR Angiography of the neck without contrast HISTORY: Syncope COMPARISON: No prior study available for comparison although correlation made with concurrent MRA brain TECHNIQUE: 3D [id number] angiography of the neck was performed. Rotating maximum intensity projection images of the cervical carotid and vertebral arteries were generated. The origins of the common carotid arteries were not visualized, which is a limitation inherent to the non-contrast time of flight technique. . Note that this examination is quite limited the due to significant motion artifact. Technologist notation indicates on the patient on with bronchitis and coughing through the entire exam. FINDINGS: This examination is limited due to significant motion artifact as above and . The cervical vasculature appears grossly patent with no evidence of occlusion however the possibility of stenotic lesions cannot be excluded on this study. Consider follow-up of carotid Doppler exam. IMPRESSION: This examination is limited due to significant motion artifact as above and . The cervical vasculature appears grossly patent with no evidence of occlusion however the possibility of stenotic lesions cannot be excluded on this study. Consider follow-up of carotid Doppler exam.
--- NOTE | 2017-11-13 15:43 | MRI ---
PROCEDURE: MRA brain 11/13/2017. HISTORY: Syncope COMPARISON: None available. TECHNIQUE: 3D time of flight MR angiography of the intracranial arteries was performed. Rotating maximum intensity projection images were generated. . Note the examination is limited the due to poor resolution secondary motion artifact. FINDINGS: INTERNAL CAROTID ARTERIES: Unremarkable. The skull base, petrous, cavernous and supraclinoid segments are bilaterally widely patient. ANTERIOR CEREBRAL ARTERIES: Unremarkable. A1 and A2 segments are widely patent. Smaller distal branches unremarkable, as visualized. MIDDLE CEREBRAL ARTERIES: Unremarkable. M1 and M2 segments are widely patent. Perisylvian branches grossly symmetric. POSTERIOR CIRCULATION: Basilar Artery: Unremarkable. Distal Vertebral Arteries: Unremarkable. Posterior Cerebral Arteries: There appears to be a localized stenosis proximal aspect right P1 segment. Posterior Inferior Cerebellar Arteries: Unremarkable. ANEURYSM/ VASCULAR MALFORMATIONS: No evidence of large aneurysm nor vascular malformation OTHER FINDINGS: None. IMPRESSION: Limited exam. There appears to be localized stenosis proximal right P1 segment No evidence of occlusion. No evidence of large aneurysm nor vascular malformation.
--- NOTE | 2017-11-13 20:12 | PN ---
DATE: 11/13/2017 SUBJECTIVE: The patient is seen. The patient is transferred to room 656 for closer monitoring. The patient is still anxious, but her blood sugar seems to be doing much better, it is in the high 200s and 300s. The patient also is still taking Xanax and Ambien, but she states she does not take her Ambien too much. The patient continues to have problems with her gait and dizziness, also less medically preoccupied. The patient is undergoing neuro workup. PHYSICAL EXAMINATION: VITAL SIGNS: Temperature 97.8, pulse is 81, blood pressure 129/82, respirations 20, and oxygen saturation 98%. REVIEW OF SYSTEMS: CONSTITUTIONAL: The patient is alert and oriented x3, still anxious and somatic. in her room with . SKIN: No diaphoresis. HEENT: Complaining of dizziness. No headache. NECK: Supple. RESPIRATORY: No dyspnea. CARDIOPULMONARY: No chest pain. GASTROINTESTINAL: No nausea. No vomiting. EXTREMITIES: Gait is unsteady. MUSCULOSKELETAL: Feels weak. NEUROLOGIC: Alert and oriented x3 . MENTAL STATUS EXAMINATION: A well-developed female who looks her stated age. Alert and oriented x3. Still anxious, somatic, not taking her medications. Affect is reactive. Speech is spontaneous. Thought process is coherent. Thought content, no psychosis. No suicidal or homicidal ideation. Attention and memory seemed to be fair. Insight and judgement limited. Impulse control is fair at this time. IMPRESSION: History of mood disorder as well as anxiety disorder. PLAN AND RECOMMENDATION: The patient is seen. Meds reviewed. Continue present management. Continue Xanax p.r.n. and Ambien p.r.n. as ordered. I will monitor her blood sugar levels. The patient's dose of Solu-Medrol has been reduced to 40 mg every 8 hours. Also continue treatment plan as outlined. I discussed with the patient. Once the patient is medically cleared, the patient will benefit from subacute rehab recommendation. She has history of two TIAs in the past and complaining of gait problems. Shankar Gray MD [facility]
[2017-11-13] MEDS: Azithromycin 500 MG in Sodium Chloride 0.9% 250 ML IVPB SCH (21:55)
[2017-11-14] MEDS: Albuterol-Ipratrop 3 mg / 0.5 (3 ml) UD INH SCH ×7 (00:48→23:40)
[2017-11-14] MEDS: MethylPREDNISolone 40 mg Vial IVP SCH ×3 (06:17→21:48)
[2017-11-14] MEDS: Enoxaparin 40 mg Syringe SC SCH (09:46)
[2017-11-14] MEDS: Bacitracin Ointment 30 GM TUBE TOP SCH ×2 (09:47→18:30)
[2017-11-14] MEDS: (Novolog) Insulin Aspart, Recombinant 100 u/ml 10 ml vial SC SCH ×5 (09:47→23:04)
--- NOTE | 2017-11-14 10:14 | CP.PCM.PN ---
Subjective - Date & Time of Evaluation Date of Evaluation: 11/14/17 Time of Evaluation: 10:10 - Subjective Subjective: CHART REVIEWED, PT SEEN AND EXAMINED., COVERING DR TOWNSEND. PT ALERT, +COUGH. +ANXIOUS. NO CP. ROS; OTHERWISE NEG. Objective - Vital Signs/Intake and Output Vital Signs (last 24 hours): Temp Pulse Resp BP Pulse Ox 98 F 88 18 137/80 96 11/14/17 09:03 11/14/17 09:03 11/14/17 09:03 11/14/17 09:03 11/14/17 09:03 - Medications Medications: Current Medications Albuterol/Ipratropium (Duoneb 3 Mg/0.5 Mg (3 Ml) Ud) 3 ml INH RQ4 [facility] Last Admin: 11/14/17 04:25 Dose: Not Given Alprazolam (Xanax) 2 mg PO Q6 PRN PRN Reason: Anxiety Last Admin: 11/14/17 07:34 Dose: 2 mg Amlodipine Besylate (Norvasc) 10 mg PO DAILY [facility] Last Admin: 11/14/17 09:47 Dose: 10 mg Aspirin (Ecotrin) 81 mg PO DAILY [facility] Last Admin: 11/14/17 09:47 Dose: 81 mg Bacitracin (Bacitracin) 1 gm TOP BID [facility] Last Admin: 11/14/17 09:47 Dose: 1 applic Enoxaparin Sodium (Lovenox) 40 mg SC DAILY [facility] Last Admin: 11/14/17 09:46 Dose: 40 mg Gabapentin (Neurontin) 600 mg PO TID [facility] Last Admin: 11/14/17 09:47 Dose: 600 mg Insulin Aspart (Novolog) 0 unit SC ACHS [facility] PRN Reason: Protocol Last Admin: 11/14/17 09:47 Dose: 10 units Losartan Potassium (Cozaar) 100 mg PO DAILY [facility] Last Admin: 11/14/17 09:47 Dose: 100 mg Metformin HCl (Glucophage) 1,000 mg PO BID [facility] Last Admin: 11/14/17 09:47 Dose: 1,000 mg Methylprednisolone (Solu-Medrol) 40 mg IVP Q8 [facility] Last Admin: 11/14/17 06:17 Dose: 40 mg Pantoprazole Sodium (Protonix Inj) 40 mg IVP DAILY [facility] Last Admin: 11/14/17 09:47 Dose: 40 mg Promethazine HCl (Phenergan Syrup) 12.5 mg PO Q6 PRN PRN Reason: Shortness of Breath Last Admin: 11/13/17 10:03 Dose: 12.5 mg Rosuvastatin Calcium (Crestor) 10 mg PO HS [facility] Last Admin: 11/13/17 21:55 Dose: 10 mg Sitagliptin Phosphate (Januvia) 50 mg PO ACB [facility] Last Admin: 11/14/17 09:47 Dose: 50 mg Zolpidem Tartrate (Ambien) 5 mg PO HS PRN PRN Reason: Insomnia Last Admin: 11/11/17 22:18 Dose: 5 mg - Labs Labs: 11/10/17 16:11 11/10/17 16:11 PT 10.4 SECONDS (9.7-12.2) 11/10/17 16:11 INR 1.0 11/10/17 16:11 APTT 31 SECONDS (21-34) 11/10/17 16:11 - Constitutional Appears: No Acute Distress - Head Exam Head Exam: ATRAUMATIC, NORMOCEPHALIC - Eye Exam Eye Exam: EOMI, Normal appearance - ENT Exam ENT Exam: Mucous Membranes Moist - Neck Exam Neck Exam: Normal Inspection - Respiratory Exam Respiratory Exam: Prolonged Expiratory Phase, Wheezes. absent: Accessory Muscle Use - Cardiovascular Exam Cardiovascular Exam: RRR, +S1, +S2 - GI/Abdominal Exam GI & Abdominal Exam: Soft. absent: Tenderness - Rectal Exam Rectal Exam: Deferred - Extremities Exam Extremities Exam: absent: Calf Tenderness, Pedal Edema - Back Exam Back Exam: absent: CVA tenderness (L), CVA tenderness (R) - Neurological Exam Neurological Exam: Alert, Awake, CN II-XII Intact, Oriented x3 - Psychiatric Exam Psychiatric exam: Anxious - Skin Skin Exam: absent: Rash Assessment and Plan (1) Hypertension Status: Acute (2) Diabetes Status: Acute (3) Cerebrovascular accident (CVA) Status: Acute (4) Anxiety Status: Acute (5) COPD exacerbation Status: Acute - Assessment and Plan (Free Text) Assessment: RESP STATUS NO SIG CHANGE., STILL WITH BRONCHOSPASM., ON ZMAX, CONT NEB BD., ADEQ OXYGENATION., MONITOR O2 SAT. CXR REVIEWED. NEURO EVAL IN PROGRESS. FOR CTA OF HEAD AND NECK. PSYCH F/U NOTED. ON TELEMONITOR. PROG GUARDED. DISCUSSED WITH STAFF.
--- NOTE | 2017-11-14 10:21 | CP.PCM.PN ---
Subjective - Date & Time of Evaluation Date of Evaluation: 11/14/17 Time of Evaluation: 10:19 - Subjective Subjective: Ms. Catalan seen and examined at the bedside. She is alert, oriented in all spheres. She claims of experiencing frontal headache, radiating to the parietal area, with pain scale 9/10, with blurred vision. She denies any diplopia, and claims of the left side weakness since her previous CVA. She is able to feed herself and follow commands. She is on tele sitter for patient safety. There was no untoward events overnight. Objective - Vital Signs/Intake and Output Vital Signs (last 24 hours): Temp Pulse Resp BP Pulse Ox 98 F 88 18 137/80 96 11/14/17 09:03 11/14/17 09:03 11/14/17 09:03 11/14/17 09:03 11/14/17 09:03 - Medications Medications: Current Medications Albuterol/Ipratropium (Duoneb 3 Mg/0.5 Mg (3 Ml) Ud) 3 ml INH RQ4 [facility] Last Admin: 11/14/17 04:25 Dose: Not Given Alprazolam (Xanax) 2 mg PO Q6 PRN PRN Reason: Anxiety Last Admin: 11/14/17 07:34 Dose: 2 mg Amlodipine Besylate (Norvasc) 10 mg PO DAILY [facility] Last Admin: 11/14/17 09:47 Dose: 10 mg Aspirin (Ecotrin) 81 mg PO DAILY [facility] Last Admin: 11/14/17 09:47 Dose: 81 mg Bacitracin (Bacitracin) 1 gm TOP BID [facility] Last Admin: 11/14/17 09:47 Dose: 1 applic Dexamethasone (Decadron Inj) 10 mg IVP ONCE ONE Stop: 11/14/17 10:13 Enoxaparin Sodium (Lovenox) 40 mg SC DAILY [facility] Last Admin: 11/14/17 09:46 Dose: 40 mg Gabapentin (Neurontin) 600 mg PO TID [facility] Last Admin: 11/14/17 09:47 Dose: 600 mg Magnesium Sulfate/Dextrose (Magnesium Sulfate 1 Gm/100 Ml D5w) 1 gm in 100 mls @ 300 mls/hr IVPB Q30M [facility] Stop: 11/14/17 11:04 Valproate Sodium 500 mg/ (Sodium Chloride) 105 mls @ 0 mls/hr IVPB ONCE ONE PRN Reason: Per Protocol Stop: 11/14/17 10:13 Insulin Aspart (Novolog) 0 unit SC ACHS [facility] PRN Reason: Protocol Last Admin: 11/14/17 09:47 Dose: 10 units Losartan Potassium (Cozaar) 100 mg PO DAILY [facility] Last Admin: 11/14/17 09:47 Dose: 100 mg Magnesium Oxide (Mag-Ox) 400 mg PO BID [facility] Metformin HCl (Glucophage) 1,000 mg PO BID [facility] Last Admin: 11/14/17 09:47 Dose: 1,000 mg Methylprednisolone (Solu-Medrol) 40 mg IVP Q8 [facility] Last Admin: 11/14/17 06:17 Dose: 40 mg Pantoprazole Sodium (Protonix Inj) 40 mg IVP DAILY [facility] Last Admin: 11/14/17 09:47 Dose: 40 mg Promethazine HCl (Phenergan Syrup) 12.5 mg PO Q6 PRN PRN Reason: Shortness of Breath Last Admin: 11/13/17 10:03 Dose: 12.5 mg Rosuvastatin Calcium (Crestor) 10 mg PO HS [facility] Last Admin: 11/13/17 21:55 Dose: 10 mg Sitagliptin Phosphate (Januvia) 50 mg PO ACB [facility] Last Admin: 11/14/17 09:47 Dose: 50 mg Zolpidem Tartrate (Ambien) 5 mg PO HS PRN PRN Reason: Insomnia Last Admin: 11/11/17 22:18 Dose: 5 mg - Labs Labs: 11/10/17 16:11 11/10/17 16:11 PT 10.4 SECONDS (9.7-12.2) 11/10/17 16:11 INR 1.0 11/10/17 16:11 APTT 31 SECONDS (21-34) 11/10/17 16:11 - Constitutional Appears: No Acute Distress - Head Exam Head Exam: NORMAL INSPECTION - Eye Exam Pupil Exam: PERRL - Neurological Exam Neurological Exam: Alert, Awake Neuro motor strength exam: Left Upper Extremity: 4, Right Upper Extremity: 5, Left Lower Extremity: 3, Right Lower Extremity: 5 Additional comments: alert, follows simple commands, sensation is intact. Assessment and Plan (1) Dizziness Assessment & Plan: Case discussed with Dr. Hines, continue all current medical regimen. Recommend hydration, keep of the head elevated at least 30 degrees, treat any electrolyte abnormalities. Status: Acute (2) Headache Assessment & Plan: Case discussed with Dr. Hines, recommend magnesium 2 gms IVPB for one dose, decadron 10 mg IV for one dose, and valproate 500 mg IVPB for one dose, and magnesium oxide 400 mg PO BID. If the headache persist to repeat a CT scan of the head without contrast. Status: Acute
[2017-11-14] MEDS ORDERED: Azithromycin 500 MG in Sodium Chloride 0.9% 250 ML IVPB SCH ×2 (10:30→22:00)
[2017-11-14] MEDS: Oxycodone/Acetaminophen 5/325 mg Tab PO PRN (10:50)
[2017-11-14] MEDS ORDERED: Valproate 500 MG in Sodium Chloride 0.9% 100 ML IVPB ONE (11:00)
[2017-11-14] MEDS ORDERED: Magnesium Sulfate 2 GM in Sodium Chloride 0.9% 100 ML IVPB ONE (11:00)
[2017-11-14] MEDS ORDERED: Iodixanol 320 MG/ML 100 ML BOTTLE IV ONE (11:32)
[2017-11-14] MEDS: Cilostazol 100 mg Tab UD PO SCH ×2 (13:29→21:56)
--- NOTE | 2017-11-14 13:56 | CT ---
PROCEDURE: CT Angiography of the neck with contrast HISTORY: Syncope COMPARISON: Comparison made with prior MRA of the neck and brain dated 11/13/2017. TECHNIQUE: Contiguous axial images of the neck neck and brain obtained in the arteriographic phase of enhancement. Coronal and sagittal reformats or also generated. IV contrast dose: 100 cc Visipaque 320 Radiation Dose - DLP: 577.19 mGy-cm This CT exam was performed using one or more of the following dose reduction techniques: Automated exposure control, adjustment of the mA and/or kV according to patient size, and/or use of iterative reconstruction technique. FINDINGS: RIGHT CAROTID ARTERIES: Common Carotid Artery: Normal. Carotid Bifurcation: Minor calcified atherosclerotic plaque changes seen at the right carotid bifurcation extending into the proximal internal carotid artery with no evidence of significant stenosis. External Carotid Artery (proximal branches): Normal. LEFT CAROTID ARTERIES: Common Carotid Artery: Normal. Carotid Bifurcation: Normal. Internal Carotid Artery:Mild crescentic/curvilinear calcified atherosclerotic plaque seen along the proximal posterior margin of the left internal carotid artery with no significant stenosis. . External Carotid Artery (proximal branches): Normal. VERTEBRAL ARTERIES: Right Vertebral Artery: Normal. Left Vertebral Artery: Normal. OTHER FINDINGS: The distal internal carotid arteries including the petrous cavernous and supraclinoid segments are patent. Some minimal calcified plaque seen along the cavernous segments. The at distal branches of the anterior middle and post cerebral arteries are patent and relatively symmetric so far as can be seen. No evidence of large aneurysm nor vascular malformation. And Multilevel degenerative spondylosis of the cervical spine most notably affecting the C5-C6, C6-C7 and to a slightly lesser degree C4-C5 levels. There is kyphotic angulation deformity centered at the C4-C5 level IMPRESSION: The the minor calcified atherosclerotic plaque changes seen in the right carotid bifurcation and proximal left internal carotid artery without significant stenosis.
[2017-11-14] MEDS: Magnesium Oxide 400 mg Tab UD PO SCH ×2 (18:32)
[2017-11-14] MEDS: Fluticasone-Salmeterol 250-50mcg Diskus INH SCH (20:21)
[2017-11-14] MEDS: Nystatin 100,000 Units/ml Oral Susp 5 ml UD PO SCH (21:49)
--- NOTE | 2017-11-15 01:55 | CP.PCM.PN ---
Subjective - Date & Time of Evaluation Date of Evaluation: 11/14/17 Time of Evaluation: 09:45 - Subjective Subjective: clinically same Objective - Vital Signs/Intake and Output Vital Signs (last 24 hours): Temp Pulse Resp BP Pulse Ox 97.8 F 103 H 20 120/75 94 L 11/14/17 15:00 11/14/17 23:30 11/14/17 15:00 11/14/17 15:00 11/14/17 15:00 Intake and Output: 11/14/17 11/15/17 18:59 06:59 Intake Total 550 Balance 550 - Medications Medications: Current Medications Albuterol/Ipratropium (Duoneb 3 Mg/0.5 Mg (3 Ml) Ud) 3 ml INH RQ4 [facility] Last Admin: 11/14/17 23:40 Dose: 3 ml Alprazolam (Xanax) 2 mg PO Q6 PRN PRN Reason: Anxiety Last Admin: 11/14/17 23:18 Dose: 2 mg Amlodipine Besylate (Norvasc) 10 mg PO DAILY [facility] Last Admin: 11/14/17 09:47 Dose: 10 mg Aspirin (Ecotrin) 81 mg PO DAILY [facility] Last Admin: 11/14/17 09:47 Dose: 81 mg Bacitracin (Bacitracin) 1 gm TOP BID [facility] Last Admin: 11/14/17 18:30 Dose: 1 applic Cilostazol (Pletal) 100 mg PO Q12 [facility] Last Admin: 11/14/17 21:56 Dose: 100 mg Enoxaparin Sodium (Lovenox) 40 mg SC DAILY [facility] Last Admin: 11/14/17 09:46 Dose: 40 mg Gabapentin (Neurontin) 600 mg PO TID [facility] Last Admin: 11/14/17 18:31 Dose: 600 mg Insulin Aspart (Novolog) 0 unit SC ACHS [facility] PRN Reason: Protocol Last Admin: 11/14/17 23:04 Dose: 4 units Losartan Potassium (Cozaar) 100 mg PO DAILY [facility] Last Admin: 11/14/17 09:47 Dose: 100 mg Magnesium Oxide (Mag-Ox) 400 mg PO BID [facility] Last Admin: 11/14/17 18:32 Dose: 400 mg Metformin HCl (Glucophage) 1,000 mg PO BID [facility] Last Admin: 11/14/17 09:47 Dose: 1,000 mg Methylprednisolone (Solu-Medrol) 20 mg IVP Q8 [facility] Nystatin (Nystatin Oral Susp) 5 ml PO QID [facility] Last Admin: 11/14/17 21:49 Dose: 5 ml Oxycodone/Acetaminophen (Percocet 5/325 Mg Tab) 1 tab PO Q6H PRN PRN Reason: Pain, moderate (4-7) Stop: 11/17/17 10:22 Last Admin: 11/14/17 10:50 Dose: 1 tab Pantoprazole Sodium (Protonix Inj) 40 mg IVP DAILY [facility] Last Admin: 11/14/17 09:47 Dose: 40 mg Promethazine HCl (Phenergan Syrup) 12.5 mg PO Q6 PRN PRN Reason: Shortness of Breath Last Admin: 11/13/17 10:03 Dose: 12.5 mg Rosuvastatin Calcium (Crestor) 10 mg PO HS [facility] Last Admin: 11/14/17 21:49 Dose: 10 mg Fluticasone/Salmeterol (Advair Diskus 250/50) 1 puff INH RQ12 [facility] Last Admin: 11/14/17 20:21 Dose: 1 puff Sitagliptin Phosphate (Januvia) 50 mg PO ACB [facility] Last Admin: 11/14/17 09:47 Dose: 50 mg Zolpidem Tartrate (Ambien) 5 mg PO HS PRN PRN Reason: Insomnia Last Admin: 11/11/17 22:18 Dose: 5 mg - Labs Labs: 11/10/17 16:11 11/10/17 16:11 PT 10.4 SECONDS (9.7-12.2) 11/10/17 16:11 INR 1.0 11/10/17 16:11 APTT 31 SECONDS (21-34) 11/10/17 16:11 - Constitutional Appears: Well - Head Exam Head Exam: ATRAUMATIC, NORMAL INSPECTION, NORMOCEPHALIC - Eye Exam Eye Exam: EOMI, Normal appearance, PERRL Pupil Exam: NORMAL ACCOMODATION, PERRL - ENT Exam ENT Exam: Mucous Membranes Moist, Normal Exam - Neck Exam Neck Exam: Full ROM, Normal Inspection. absent: Lymphadenopathy - Respiratory Exam Respiratory Exam: Decreased Breath Sounds - Cardiovascular Exam Cardiovascular Exam: REGULAR RHYTHM, +S1, +S2 - GI/Abdominal Exam GI & Abdominal Exam: Soft, Diminished Bowel Sounds - Rectal Exam Rectal Exam: Deferred
[2017-11-15] MEDS: Albuterol-Ipratrop 3 mg / 0.5 (3 ml) UD INH SCH ×5 (04:13→19:52)
[2017-11-15] MEDS: MethylPREDNISolone 40 mg Vial IVP SCH ×3 (05:15→21:11)
--- NOTE | 2017-11-15 07:29 | CON ---
DATE: 11/12/2017 CHIEF COMPLAINT/REASON FOR CONSULTATION: The patient was referred by Dr. Tovar. The patient is exhibiting extreme level of anxiety and multiple nonspecific somatic complaints. The patient is fearful that she will have a stroke. HISTORY OF PRESENT ILLNESS: This is the case of a 51-year-old female with a history of CVA, asthma, diabetes, and hypertension. The patient reported history of stroke x2 in the past. The patient was admitted here for increasing chest pain and tightness in the last week. She was seen before, diagnosed of bronchitis, treated with nebulizer and steroids. The patient reports that she has been getting worse. She is not sleeping well. The patient reports she has been taking Xanax 2 mg every 6 hours p.r.n. at home, which she takes 1 to 2 doses as well as Ambien. The patient reports she is not sleeping well. She is complaining problems with her knees, has multiple somatic complaints and referred comanagement for her anxiety. The patient is fearful that she will have a stroke. She is also having complaining of dizziness, difficulty walking. She reports she has sleep apnea and that she is using CPAP at home, but the family is not using in the hospital. PAST PSYCHIATRIC HISTORY: History of anxiety, has been on Xanax as well as history of chronic insomnia, on Ambien. MEDICAL HISTORY: She has a history of asthma, back problems, anemia, bronchitis, CVA, diabetes, hypertension, hypercholesterolemia, history of rheumatoid arthritis. Complaining of pain in her both knees. DRUG AND ALOCOHOL HISTORY: The patient is a smoker as well as history of alcohol abuse. ALLERGIES: THE PATIENT IS ALLERGIC TO PLAVIX. PSYCHOSOCIAL HISTORY: The patient lives with her family. LIST OF CURRENT MEDICATIONS: Ambien 5 mg at bedtime p.r.n., azithromycin, bacitracin, Cozaar, Crestor, DuoNeb, Glucophage, Januvia, Lovenox, Neurontin as well as Xanax 2 mg every 6 hours p.r.n., Solu-Medrol 60 mg every 6 hours as well as pantoprazole, Phenergan, Percocet, Novolog, Norvasc. PHYSICAL EXAMINATION: VITAL SIGNS: Temperature is 97.7, pulse 94, blood pressure 129/77, respirations 20, oxygen saturation is 95%. Her blood sugar noted to be markedly elevated, greater than 500. REVIEW OF SYSTEMS: GENERAL: The patient is very anxious, alert and oriented x3, with her family. Complaining of weakness as well as painful knees as well as shortness of breath and anxiety. The patient was told that so far, according to nurse practitioner, the patient has no major medical problems. SKIN: No diaphoresis. HEENT: Complaining of dizziness. No headache. NECK: Supple. RESPIRATORY: Has off and on shortness of breath. CARDIOVASCULAR: No chest pain. GASTROINTESTINAL: No nausea. No vomiting. EXTREMITIES: Complaining pain in her knees. The patient has history of rheumatoid arthritis. MUSCULOSKELETAL: Weak. NEUROLOGIC: Alert and oriented x3. GENITOURINARY: No dysuria. MENTAL STATUS EXAMINATION: Well-developed female who looks her stated age. Alert and oriented x3. Mood is anxious and somatic. Affect is reactive. Speech is spontaneous. Thought process coherent. Thought content, She is fearful of having a stroke. No psychosis. No suicidal or homicidal ideation. Has extreme somatic complaints Attention and memory seem to be fair. Insight and judgment fair. Impulse control is fair. IMPRESSION: Generalized anxiety disorder as well as panic disorder. PLAN AND RECOMMENDATIONS: The patient was seen and medication reviewed. We discussed with the patient. We will continue her Xanax 2 mg every 6 hours p.r.n. as well as continue Ambien 5 mg at bedtime p.r.n. The patient is advised to use her CPAP as she has history of sleep apnea. Other than that, there is no need to change her medications. The patient was referred to be seen by Neurology and doing neuro workup, but according to the nurse practitioner and the patient so far has no major medical problems at this time causing her anxiety. Shankar Gray MD 1. MTDSelvin
[2017-11-15] MEDS: Fluticasone-Salmeterol 250-50mcg Diskus INH SCH ×2 (07:41→19:52)
[2017-11-15] MEDS: (Novolog) Insulin Aspart, Recombinant 100 u/ml 10 ml vial SC SCH ×4 (08:31→21:12)
[2017-11-15] MEDS: Magnesium Oxide 400 mg Tab UD PO SCH ×2 (09:50→18:10)
[2017-11-15] MEDS: Enoxaparin 40 mg Syringe SC SCH (09:51)
[2017-11-15] MEDS: Nystatin 100,000 Units/ml Oral Susp 5 ml UD PO SCH ×4 (09:51→21:11)
[2017-11-15] MEDS: Bacitracin Ointment 30 GM TUBE TOP SCH ×2 (09:53→18:10)
[2017-11-15] MEDS: Promethazine 12.5 mg/10 ml Syrup PO PRN (10:05)
[2017-11-15] MEDS: Cilostazol 100 mg Tab UD PO SCH ×2 (10:05→21:11)
--- NOTE | 2017-11-15 18:27 | PN ---
DATE: 11/15/2017 SUBJECTIVE: The patient is still very anxious, somatic, had multiple somatic complaints, and chest pain, headache, etc., and still very anxious. The patient has been taking Xanax p.r.n. and Ambien p.r.n. Review of her lab result, her sugar is still markedly elevated above 400s and high 300s, but her TSH is still markedly low. Her TSH is 0.02, suggestive of hyperactive thyroid disease. The patient indeed have no history of thyroid disease in the past.The patient has very high anxiety level and be need to be corrected or treated. Suggest workup of thyroid as a possible cause of her chronic anxiety. Her neuro workup seems to be all negative from the MRA as well as the CAT scan of the head and MRI. PHYSICAL EXAMINATION: VITAL SIGNS: Temperature 97.7, pulse rate is 96, blood pressure 131/75, respirations 18, and oxygen saturation 95%. REVIEW OF SYSTEMS: CONSTITUTIONAL: The patient is alert and oriented x3, very anxious and somatic, seen in her room, still has off and on chest pain. The patient has mynor ordered for EKG. SKIN: No diaphoresis. HEENT: No headache. Complaining of dizziness. NECK: Supple. RESPIRATORY: No chest pain. CARDIOVASCULAR: No palpitation. GASTROINTESTINAL: No nausea. No vomiting. EXTREMITIES: Has a steady gait. MUSCULOSKELETAL: Generalized weakness. NEUROLOGIC: Alert and oriented x3. GENITOURINARY: No dysuria. MENTAL STATUS EXAMINATION: A well-developed female who looks her stated age. Alert and oriented x3. Extremely anxious and somatic with multiple somatic complaints. Affect is reactive. Speech is spontaneous. Thought process is coherent. Thought content, no overt psychosis. No suicidal or homicidal ideation. Has multiple medical complaints. Attention and memory seemed to be fair. Insight and judgement limited. Impulse control is fair at this time. IMPRESSION: History of anxiety disorder, mood disorder secondary to medical problems, depression. PLAN AND RECOMMENDATION: The patient is seen. Meds reviewed. Continue present management. Continue present psych meds. I do suggest to have the patient undergo a thyroid workup, especially as the patient's initial TSH is markedly low, 0.02. Discussed this with the nurse. Discussed with the nurse practitioner to work up the patient for thyroid disease possibly if the patient indeed has some thyroid problems to explain why the patient has very high anxiety level. Shankar Gray MD [facility] # [id number] [place]
--- NOTE | 2017-11-15 19:45 | CARD ---
APPROVED REPORT EKG Measurement Heart [id number] <Conclusion> Sinus tachycardia Rightward axis Possible Inferior infarct, age undetermined Abnormal ECG
--- NOTE | 2017-11-15 20:45 | CP.PCM.PN ---
Subjective - Date & Time of Evaluation Date of Evaluation: 11/15/17 Time of Evaluation: 20:41 - Subjective Subjective: COVERING DR TOWNSEND. PT ALERT, ANXIOUS. STILL +COUGH., SLEEPS ON CPAP AT HOME . FEELS WEAK., UNSTABLE AMBULATING. ROS ; OTHERWISE NEG. Objective - Vital Signs/Intake and Output Vital Signs (last 24 hours): Temp Pulse Resp BP Pulse Ox 98 F 96 H 20 100/62 95 11/15/17 15:00 11/15/17 15:00 11/15/17 15:00 11/15/17 15:00 11/15/17 15:00 Intake and Output: 11/15/17 11/16/17 18:59 06:59 Intake Total 600 Balance 600 - Medications Medications: Current Medications Albuterol/Ipratropium (Duoneb 3 Mg/0.5 Mg (3 Ml) Ud) 3 ml INH RQ4 [facility] Last Admin: 11/15/17 19:52 Dose: Not Given Alprazolam (Xanax) 2 mg PO Q6 PRN PRN Reason: Anxiety Last Admin: 11/15/17 09:51 Dose: 2 mg Amlodipine Besylate (Norvasc) 10 mg PO DAILY [facility] Last Admin: 11/15/17 09:50 Dose: 10 mg Aspirin (Ecotrin) 81 mg PO DAILY [facility] Last Admin: 11/15/17 09:50 Dose: 81 mg Bacitracin (Bacitracin) 1 gm TOP BID [facility] Last Admin: 11/15/17 18:10 Dose: 1 applic Cilostazol (Pletal) 100 mg PO Q12 [facility] Last Admin: 11/15/17 10:05 Dose: 100 mg Enoxaparin Sodium (Lovenox) 40 mg SC DAILY [facility] Last Admin: 11/15/17 09:51 Dose: 40 mg Gabapentin (Neurontin) 600 mg PO TID [facility] Last Admin: 11/15/17 18:10 Dose: 600 mg Insulin Aspart (Novolog) 12 unit SC AC [facility] Insulin Aspart (Novolog) 0 unit SC ACHS [facility] Insulin Glargine (Lantus) 30 unit SC HS [facility] Losartan Potassium (Cozaar) 100 mg PO DAILY [facility] Last Admin: 11/15/17 09:50 Dose: 100 mg Magnesium Oxide (Mag-Ox) 400 mg PO BID [facility] Last Admin: 07/09/18 18:10 Dose: 400 mg Metformin HCl (Glucophage) 1,000 mg PO BID [facility] Last Admin: 11/15/17 18:32 Dose: Not Given Methylprednisolone (Solu-Medrol) 20 mg IVP Q8 [facility] Last Admin: 11/15/17 14:12 Dose: 20 mg Nystatin (Nystatin Oral Susp) 5 ml PO QID [facility] Last Admin: 11/15/17 18:10 Dose: 5 ml Oxycodone/Acetaminophen (Percocet 5/325 Mg Tab) 1 tab PO Q6H PRN PRN Reason: Pain, moderate (4-7) Stop: 11/17/17 10:22 Last Admin: 11/14/17 10:50 Dose: 1 tab Pantoprazole Sodium (Protonix Ec Tab) 40 mg PO DAILY [facility] Promethazine HCl (Phenergan Syrup) 12.5 mg PO Q6 PRN PRN Reason: Shortness of Breath Last Admin: 11/15/17 10:05 Dose: 12.5 mg Rosuvastatin Calcium (Crestor) 10 mg PO HS [facility] Last Admin: 11/14/17 21:49 Dose: 10 mg Fluticasone/Salmeterol (Advair Diskus 250/50) 1 puff INH RQ12 [facility] Last Admin: 11/15/17 19:52 Dose: Not Given Sitagliptin Phosphate (Januvia) 50 mg PO ACB [facility] Last Admin: 11/15/17 08:32 Dose: 50 mg Zolpidem Tartrate (Ambien) 5 mg PO HS PRN PRN Reason: Insomnia Last Admin: 11/11/17 22:18 Dose: 5 mg - Labs Labs: 11/10/17 16:11 11/10/17 16:11 PT 10.4 SECONDS (9.7-12.2) 11/10/17 16:11 INR 1.0 11/10/17 16:11 APTT 31 SECONDS (21-34) 11/10/17 16:11 - Constitutional Appears: No Acute Distress - Head Exam Head Exam: ATRAUMATIC, NORMOCEPHALIC - Eye Exam Eye Exam: EOMI, Normal appearance - ENT Exam ENT Exam: Mucous Membranes Moist - Neck Exam Neck Exam: absent: Tenderness - Respiratory Exam Respiratory Exam: Decreased Breath Sounds, Prolonged Expiratory Phase, Wheezes. absent: Accessory Muscle Use, Respiratory Distress - Cardiovascular Exam Cardiovascular Exam: RRR, +S1, +S2 - GI/Abdominal Exam GI & Abdominal Exam: Soft. absent: Tenderness - Rectal Exam Rectal Exam: Deferred - Extremities Exam Extremities Exam: absent: Calf Tenderness, Pedal Edema - Back Exam Back Exam: absent: CVA tenderness (L), CVA tenderness (R) - Neurological Exam Neurological Exam: Alert, Awake, CN II-XII Intact, Oriented x3 - Psychiatric Exam Psychiatric exam: Anxious - Skin Skin Exam: absent: Rash Assessment and Plan (1) Hypertension Status: Acute (2) Diabetes Status: Acute (3) Cerebrovascular accident (CVA) Status: Acute (4) Anxiety Status: Acute (5) COPD exacerbation Status: Acute - Assessment and Plan (Free Text) Assessment: RESP STATUS SLOW IMPROVEMENT, TAPER STEROIDS DUE TO HYPERGLYCEMIA., CONT NEB BD. , MONITOR O2 SAT. RESUME CPAP QHS., CXR REVIEWED., PSYCH F/U NOTED, FOR ENDO EVAL HYPERTH?. NEURO F/U NOTED., FOR PT., ON TELEMONITOR . PROG GUARDED., DISCUSSED WITH STAFF AT LENGTH AND FAMILY AT BEDSIDE.
[2017-11-15] MEDS: Oxycodone/Acetaminophen 5/325 mg Tab PO PRN (21:37)
[2017-11-15] MEDS ORDERED: (Lantus) Insulin Glargine, Recombinant SC SCH (22:00)
[2017-11-16] MEDS: Albuterol-Ipratrop 3 mg / 0.5 (3 ml) UD INH SCH ×5 (01:00→23:42)
[2017-11-16] MEDS ORDERED: (Novolin R) Insulin Human Regular 100 units/ml vial SC ONE (03:08)
[2017-11-16] MEDS: MethylPREDNISolone 40 mg Vial IVP SCH ×2 (06:26→22:18)
--- NOTE | 2017-11-16 06:35 | CON ---
DATE: 11/15/2017LOCATION: Room 356. HISTORY OF PRESENT ILLNESS: This is a 51-year-old female with known history of type 2 diabetes, hypertension, and chronic bronchial asthma and has now been admitted with progressively worsening shortness of breath, initially on exertion, and then at rest with severe left-sided headaches and apparent seizure event, and is now being referred for endocrine evaluation because of abnormal thyroid studies and also uncontrolled hyperglycemic accelerations as noted thereof. She has been placed on IV steroids therapy or a tapering dose, and the latest Solu Medrol is now given as 20 mg IV every 8 hours as given. PAST MEDICAL HISTORY: As mentioned above, history of type 2 diabetes, currently on a combination of metformin at 850 mg b.i.d. and Januvia at 50 mg once daily, history of hypertension and dyslipidemia, history of coronary artery disease with concomitant recurrent chest pain, history of chronic obstructive lung disease with underlying chronic bronchial asthma. She also has a previous cerebrovascular event about 20 years ago and the second episode was only in 08/2017 as noted, history of a recent seizure event as witnessed by the family, history of diffuse osteoarthritis and generalized osteoporosis, history of rheumatoid arthritis also. There is also history of generalized anxiety and depression, on psychotropic medications. FAMILY HISTORY: Positive for diabetes and hypertension. SOCIAL HISTORY: The patient has supportive family, admits to ongoing nicotine dependence. No other known substance use. REVIEW OF SYSTEMS: As mentioned above, admits to generalized body weakness with easy fatigability and tiredness and suboptimal energy level. Also, admits to bifrontal headaches but localized on the left side in the left frontotemporal area, with apparent witness, tremors, and shakiness of both left upper and lower extremities. No chest pains but admits to palpitations with progressive shortness of breath, initially on exertion, then at rest with paroxysmal nocturnal dyspnea. Her oral intake has been variable with nausea, dyspepsia, and vague upper abdominal pains. Also, admits to marked polyuria, nocturia, and polydipsia. Also admits to lower extremity painful paresthesias. PHYSICAL EXAMINATION: VITAL SIGNS: This is an overweight female, in no apparent distress with a blood pressure of 140/80, pulse of 90 beats per minute and regular, temperature 98, respirations 20, height is 5 feet 2 inches, weight is 184 pounds. HEENT: Head is normocephalic. Eyes anicteric with pink conjunctivae. Funduscopy not possible this time. Ears, nose, and throat, otherwise, normal. NECK: Supple. Thyroid gland is normal in size. No carotid bruits or cervical adenopathy. CARDIOPULMONARY: Some adynamic precordium. S1 and S2 are rapid and regular. LUNGS: Shows scattered rhonchi. ABDOMEN: Flat, soft, with positive bowel sounds. EXTREMITIES: No peripheral edema. Pulses are +2 bilaterally. LABORATORY DATA: Her glucose levels are extremely elevated, ranging from 462 to 475 mg/dL. Her TSH level is 0.02. Hemoglobin A1c is 9.9%. Chemistries: BUN of 14, sodium 134, potassium 4.9, chloride 97, CO2 of 21, glucose 372, and creatinine 0.5. ASSESSMENT: This is a 51-year-old female with uncontrolled and decompensated type 2 insulin requiring diabetes with marked hyperglycemic accelerations related to the intercurrent IV steroid therapy, contributing to increased insulin resistance and further impaired glucose tolerance thereof. There is also significant history of diabetic microvascular complications of retinopathy and polyneuropathy, with diabetic macrovascular complications of cerebrovascular disease and coronary artery disease. Moreover, she has a slightly suppressed TSH noted biochemically which is not unusual in patients on IV steroid therapy which can cause transient TSH suppressions thereof. She remains clinically euthyroid, otherwise. PLAN OF MANAGEMENT: We will obtain a more comprehensive thyroid hormonal profile with a total and free T4 and TSH tomorrow, and we will improve the thyroid stimulating immunoglobulin which we will confirm only the presence of underlying thyroid autoimmunity. We will also modify the current insulin regimen and start her temporarily on the basal and bolus insulin drug combination, is more physiologic to optimize metabolic control. Although with a very elevated A1c level, she may actually be already insulin requiring at this time despite the oral hypoglycemic therapy, as given on the outpatient. We will start her with NovoLog given as 12 units subcutaneous t.i.d. before meals to start tomorrow morning as ordered. We will add basal insulin as Lantus given as 30 units subcu at bedtime daily to start tonight. We will modify the coverage scale to obviate hypoglycemia and detailed orders have been given. We will obtain serial chemistries and supplement accordingly as needed. We will follow with you. Morena Saldaña MD [facility] # [id number]
[2017-11-16 07:26] LABS: BASO % 0.2 % (0.0-2.0); LYMPH # 0.8 K/uL (1.0-4.3); LYMPH % 5.8 % (20.0-40.0); MEAN CELL VOLUME 88.2 fL (81.0-99.0); MEAN CORPUSCULAR HEMOGLOBIN 30.6 pg (27.0-31.0); MEAN CORPUSCULAR HGB CONC 34.7 g/dL (33.0-37.0); MEAN PLATELET VOLUME 9.1 fL (7.2-11.7); MONO # 0.6 K/uL (0.0-0.8); MONO % 4.5 % (0.0-10.0); NEUT # 12.4 K/uL (1.8-7.0); NEUT % 89.5 % (50.0-75.0); PLATELET COUNT 216 K/uL (130-400); RBC 3.93 Mil/uL (3.80-5.20); RED CELL DISTRIBUTION WIDTH 14.1 % (11.5-14.5); WHITE BLOOD COUNT 13.9 K/uL (4.8-10.8)
[2017-11-16 07:38] LABS: ALB/GLOB RATIO 1.5 (1.0-2.1); ALBUMIN 3.6 g/dL (3.5-5.0); ALT/SGPT 40 U/L (9-52); AST/SGOT 23 U/L (14-36); BLOOD UREA NITROGEN 23 mg/dL (7-17); CALCIUM 8.8 mg/dl (8.6-10.4); GFR AFRICAN-AMERICAN > 60; GFR NON-AFRICAN AMERICAN > 60
[2017-11-16 07:50] LABS: T4 6.45 ug/dL (5.5-11.0)
[2017-11-16 08:04] LABS: T3 0.742 nmol/L (1.49-2.60)
[2017-11-16] MEDS: Oxycodone/Acetaminophen 5/325 mg Tab PO PRN (08:04)
[2017-11-16] MEDS: (Novolog) Insulin Aspart, Recombinant 100 u/ml 10 ml vial SC SCH ×7 (08:50→22:11)
[2017-11-16 08:51] LABS: BANDS 2 % (0-2); MONOCYTE 5 % (0-10); MYELOCYTE 1 % (0-0); PLATELET ESTIMATE NORMAL (NORMAL); TOTAL CELLS COUNTED 100
[2017-11-16 08:52] LABS: LYMPHOCYTE 7 % (20-40); NEUTROPHIL 85 % (50-75)
[2017-11-16] MEDS: Fluticasone-Salmeterol 250-50mcg Diskus INH SCH ×2 (10:10→19:44)
--- NOTE | 2017-11-16 10:51 | CP.PCM.PN ---
Subjective - Date & Time of Evaluation Date of Evaluation: 11/16/17 Time of Evaluation: 10:49 - Subjective Subjective: PT ALERT, OOB IN CHAIR., LESS SOB., +COUGH., DID NOT TOLERATED CPAP. ROS; OTHERWISE NEG. Objective - Vital Signs/Intake and Output Vital Signs (last 24 hours): Temp Pulse Resp BP Pulse Ox 98.0 F 90 20 151/72 H 96 11/16/17 07:05 11/16/17 07:05 11/16/17 07:05 11/16/17 07:05 11/15/17 23:30 Intake and Output: 11/16/17 11/16/17 06:59 18:59 Intake Total 240 Balance 240 - Medications Medications: Current Medications Albuterol/Ipratropium (Duoneb 3 Mg/0.5 Mg (3 Ml) Ud) 3 ml INH RQ4 [facility] Alprazolam (Xanax) 2 mg PO Q6 PRN PRN Reason: Anxiety Last Admin: 11/15/17 09:51 Dose: 2 mg Amlodipine Besylate (Norvasc) 10 mg PO DAILY [facility] Last Admin: 11/15/17 09:50 Dose: 10 mg Aspirin (Ecotrin) 81 mg PO DAILY [facility] Last Admin: 11/15/17 09:50 Dose: 81 mg Bacitracin (Bacitracin) 1 gm TOP BID [facility] Last Admin: 11/15/17 18:10 Dose: 1 applic Cilostazol (Pletal) 100 mg PO Q12 [facility] Last Admin: 11/15/17 21:11 Dose: 100 mg Enoxaparin Sodium (Lovenox) 40 mg SC DAILY [facility] Last Admin: 11/15/17 09:51 Dose: 40 mg Gabapentin (Neurontin) 600 mg PO TID [facility] Last Admin: 11/15/17 18:10 Dose: 600 mg Insulin Aspart (Novolog) 12 unit SC AC [facility] Last Admin: 11/16/17 08:50 Dose: 12 units Insulin Aspart (Novolog) 0 unit SC ACHS [facility] Last Admin: 11/16/17 08:51 Dose: 4 units Insulin Glargine (Lantus) 30 unit SC HS [facility] Last Admin: 11/15/17 21:12 Dose: 30 units Losartan Potassium (Cozaar) 100 mg PO DAILY [facility] Last Admin: 11/15/17 09:50 Dose: 100 mg Magnesium Oxide (Mag-Ox) 400 mg PO BID [facility] Last Admin: 11/15/17 18:10 Dose: 400 mg Metformin HCl (Glucophage) 1,000 mg PO BID [facility] Last Admin: 11/15/17 18:32 Dose: Not Given Methylprednisolone (Solu-Medrol) 20 mg IVP Q8 [facility] Last Admin: 11/16/17 06:26 Dose: 20 mg Nystatin (Nystatin Oral Susp) 5 ml PO QID [facility] Last Admin: 11/15/17 21:11 Dose: 5 ml Oxycodone/Acetaminophen (Percocet 5/325 Mg Tab) 1 tab PO Q6H PRN PRN Reason: Pain, moderate (4-7) Stop: 11/17/17 10:22 Last Admin: 11/16/17 08:04 Dose: 1 tab Pantoprazole Sodium (Protonix Ec Tab) 40 mg PO DAILY [facility] Promethazine HCl (Phenergan Syrup) 12.5 mg PO Q6 PRN PRN Reason: Shortness of Breath Last Admin: 11/15/17 10:05 Dose: 12.5 mg Rosuvastatin Calcium (Crestor) 10 mg PO HS [facility] Last Admin: 11/15/17 21:11 Dose: 10 mg Fluticasone/Salmeterol (Advair Diskus 250/50) 1 puff INH RQ12 [facility] Last Admin: 11/16/17 10:10 Dose: 1 puff Sitagliptin Phosphate (Januvia) 50 mg PO ACB [facility] Last Admin: 11/16/17 08:51 Dose: 50 mg Zolpidem Tartrate (Ambien) 5 mg PO HS PRN PRN Reason: Insomnia Last Admin: 11/16/17 00:00 Dose: 5 mg - Labs Labs: 11/16/17 06:39 11/16/17 06:39 PT 10.4 SECONDS (9.7-12.2) 11/10/17 16:11 INR 1.0 11/10/17 16:11 APTT 31 SECONDS (21-34) 11/10/17 16:11 - Constitutional Appears: No Acute Distress - Head Exam Head Exam: ATRAUMATIC, NORMOCEPHALIC - Eye Exam Eye Exam: EOMI, Normal appearance - ENT Exam ENT Exam: Mucous Membranes Moist - Neck Exam Neck Exam: absent: Tenderness - Respiratory Exam Respiratory Exam: Decreased Breath Sounds, Prolonged Expiratory Phase, Wheezes. absent: Accessory Muscle Use - Cardiovascular Exam Cardiovascular Exam: RRR, +S1, +S2 - GI/Abdominal Exam GI & Abdominal Exam: Soft. absent: Tenderness - Rectal Exam Rectal Exam: Deferred - Extremities Exam Extremities Exam: absent: Calf Tenderness, Pedal Edema - Back Exam Back Exam: absent: CVA tenderness (L), CVA tenderness (R) - Neurological Exam Neurological Exam: Alert, Awake, CN II-XII Intact, Oriented x3 Additional comments: LEFT [place] - Psychiatric Exam Psychiatric exam: Anxious - Skin Skin Exam: absent: Rash Assessment and Plan (1) Hypertension Status: Acute (2) Diabetes Status: Acute (3) Cerebrovascular accident (CVA) Status: Acute (4) Anxiety Status: Acute (5) COPD exacerbation Status: Acute - Assessment and Plan (Free Text) Assessment: RESP STATUS NO SIG CHANGE., CONT NEB BD., ON STEROID TAPER. MONITOR O2 SAT. CXR REVIEWED., FOR ENDO EVAL., INCREASE OOB., FOR PT. CPAP QHS., PROG POOR. DISCUSSED WITH STAFF AND RT AT LENGTH.
[2017-11-16] MEDS: Nystatin 100,000 Units/ml Oral Susp 5 ml UD PO SCH ×4 (11:10→22:00)
[2017-11-16] MEDS: Pantoprazole 40 mg EC Tab PO SCH (11:11)
[2017-11-16] MEDS: Cilostazol 100 mg Tab UD PO SCH ×2 (11:11→22:17)
[2017-11-16] MEDS: Promethazine 12.5 mg/10 ml Syrup PO PRN (11:11)
[2017-11-16] MEDS: Magnesium Oxide 400 mg Tab UD PO SCH ×2 (11:11→17:58)
[2017-11-16] MEDS: Bacitracin Ointment 30 GM TUBE TOP SCH ×2 (11:12→18:03)
[2017-11-16] MEDS: Enoxaparin 40 mg Syringe SC SCH (11:12)
--- NOTE | 2017-11-16 11:48 | CP.PCM.PN ---
Subjective - Date & Time of Evaluation Date of Evaluation: 11/16/17 Time of Evaluation: 10:15 - Subjective Subjective: clinically same Objective - Vital Signs/Intake and Output Vital Signs (last 24 hours): Temp Pulse Resp BP Pulse Ox 98.0 F 90 20 151/72 H 96 11/16/17 07:05 11/16/17 07:05 11/16/17 07:05 11/16/17 07:05 11/15/17 23:30 Intake and Output: 11/16/17 11/16/17 06:59 18:59 Intake Total 240 Balance 240 - Medications Medications: Current Medications Albuterol/Ipratropium (Duoneb 3 Mg/0.5 Mg (3 Ml) Ud) 3 ml INH RQ4 [facility] Alprazolam (Xanax) 2 mg PO Q6 PRN PRN Reason: Anxiety Last Admin: 11/15/17 09:51 Dose: 2 mg Amlodipine Besylate (Norvasc) 10 mg PO DAILY [facility] Last Admin: 11/16/17 11:11 Dose: 10 mg Aspirin (Ecotrin) 81 mg PO DAILY [facility] Last Admin: 11/16/17 11:11 Dose: 81 mg Bacitracin (Bacitracin) 1 gm TOP BID [facility] Last Admin: 11/16/17 11:12 Dose: 1 applic Cilostazol (Pletal) 100 mg PO Q12 [facility] Last Admin: 11/16/17 11:11 Dose: 100 mg Enoxaparin Sodium (Lovenox) 40 mg SC DAILY [facility] Last Admin: 11/16/17 11:12 Dose: 40 mg Gabapentin (Neurontin) 600 mg PO TID [facility] Last Admin: 11/16/17 11:10 Dose: 600 mg Insulin Aspart (Novolog) 12 unit SC AC [facility] Last Admin: 11/16/17 08:50 Dose: 12 units Insulin Aspart (Novolog) 0 unit SC ACHS [facility] Last Admin: 11/16/17 08:51 Dose: 4 units Insulin Glargine (Lantus) 30 unit SC HS [facility] Last Admin: 11/15/17 21:12 Dose: 30 units Losartan Potassium (Cozaar) 100 mg PO DAILY [facility] Last Admin: 11/16/17 11:11 Dose: 100 mg Magnesium Oxide (Mag-Ox) 400 mg PO BID [facility] Last Admin: 11/16/17 11:11 Dose: 400 mg Metformin HCl (Glucophage) 1,000 mg PO BID [facility] Last Admin: 11/16/17 11:11 Dose: 1,000 mg Methylprednisolone (Solu-Medrol) 20 mg IVP Q8 [facility] Last Admin: 11/16/17 06:26 Dose: 20 mg Nystatin (Nystatin Oral Susp) 5 ml PO QID [facility] Last Admin: 11/16/17 11:10 Dose: 5 ml Oxycodone/Acetaminophen (Percocet 5/325 Mg Tab) 1 tab PO Q6H PRN PRN Reason: Pain, moderate (4-7) Stop: 11/17/17 10:22 Last Admin: 11/16/17 08:04 Dose: 1 tab Pantoprazole Sodium (Protonix Ec Tab) 40 mg PO DAILY [facility] Last Admin: 11/16/17 11:11 Dose: 40 mg Promethazine HCl (Phenergan Syrup) 12.5 mg PO Q6 PRN PRN Reason: Shortness of Breath Last Admin: 11/16/17 11:11 Dose: 12.5 mg Rosuvastatin Calcium (Crestor) 10 mg PO HS [facility] Last Admin: 11/15/17 21:11 Dose: 10 mg Fluticasone/Salmeterol (Advair Diskus 250/50) 1 puff INH RQ12 [facility] Last Admin: 11/16/17 10:10 Dose: 1 puff Sitagliptin Phosphate (Januvia) 50 mg PO ACB [facility] Last Admin: 11/16/17 08:51 Dose: 50 mg Zolpidem Tartrate (Ambien) 5 mg PO HS PRN PRN Reason: Insomnia Last Admin: 11/16/17 00:00 Dose: 5 mg - Labs Labs: 11/16/17 06:39 11/16/17 06:39 PT 10.4 SECONDS (9.7-12.2) 11/10/17 16:11 INR 1.0 11/10/17 16:11 APTT 31 SECONDS (21-34) 11/10/17 16:11 - Constitutional Appears: Well - Head Exam Head Exam: ATRAUMATIC, NORMAL INSPECTION, NORMOCEPHALIC - Eye Exam Eye Exam: EOMI, Normal appearance, PERRL Pupil Exam: NORMAL ACCOMODATION, PERRL - ENT Exam ENT Exam: Mucous Membranes Moist, Normal Exam - Neck Exam Neck Exam: Full ROM, Normal Inspection. absent: Lymphadenopathy - Respiratory Exam Respiratory Exam: Decreased Breath Sounds - Cardiovascular Exam Cardiovascular Exam: REGULAR RHYTHM, +S1, +S2 - GI/Abdominal Exam GI & Abdominal Exam: Soft, Diminished Bowel Sounds - Rectal Exam Rectal Exam: Deferred
--- NOTE | 2017-11-16 15:08 | PN ---
DATE: 11/16/2017 SUBJECTIVE: The patient is seen, still anxious and somatic. Blood sugars continues to be markedly elevated although the patient states that she is watching her diet. The patient had a repeat total T3 with 0.03. The patient has been referred and seen by Dr. Saldaña, waste water treatment plant operator for management of her thyroid problem as well as her blood sugar. Today her blood sugar had one reading, it was over 500. The patient was asking for followup of physical therapy. PHYSICAL EXAMINATION: VITAL SIGNS: Temperature 98, 90, 151/72, respirations 20, oxygen saturation is 96%. REVIEW OF SYSTEMS: CONSTITUTIONAL: She is alert and oriented x3. She is in her room sitting, but anxious and somatic, complaining of weakness, difficulty ambulating and wants physical therapy. SKIN: No diaphoresis. HEENT: No headache. No dizziness. NECK: Supple. RESPIRATORY: No dyspnea. CARDIOVASCULAR: No chest pain. GASTROINTESTINAL: The patient is eating. EXTREMITIES: Gait is unsteady. GENITOURINARY: No dysuria. NEUROLOGIC: Alert and oriented x3. The patient complains she is thirsty all the time. This is probably secondary to her uncontrolled diabetes. MENTAL STATUS EXAMINATION: Well-developed female, looks stated age, oriented x3, still anxious and somatic. She has been taking Xanax and Ambien p.r.n. Speech is spontaneous. Affect is reactive. Mood is stated somatic. Thought process is coherent. Thought content preoccupied about her high anxiety level as well as her unsteady gait and her blood sugar that has been very erratic. As stated, no suicidal thoughts, ideations or psychosis. Attention and memory seem to be fair. Insight and judgment limited. Impulse control is fair at this time. IMPRESSION: History of depression and anxiety, which is probably secondary to medical problem. PLAN AND RECOMMENDATIONS: The patient was seen, meds reviewed. The patient to be seen by Dr. Saldaña for evaluation of her thyroid problem as well as her diabetes is uncontrolled. For now, we will just keep her on the current psych medications, Ambien and Xanax p.r.n., and also the patient has been slowly being tapered off the methylprednisolone now, currently taking 20 mg IV every 8 hours. Will continue to monitor her BS levels. Shankar Gray MD [facility] # [id number] [place]
--- NOTE | 2017-11-16 16:58 | CARD ---
APPROVED REPORT Date of service: 11/10/2017 EKG Measurement Heart [id number] [id number] <Conclusion> Normal sinus rhythm Possible Left atrial enlargement Cannot rule out Anterior infarct, age undetermined Abnormal ECG
[2017-11-16] MEDS ORDERED: Simethicone 80 mg Chewtab PO ONE (20:15)
--- NOTE | 2017-11-16 20:56 | PN ---
DATE: 11/16/2017 In room 656. SUBJECTIVE: This is a 51-year-old female with recent uncontrolled type 2 insulin-requiring diabetes, admitted here with acute exacerbation of COPD and precordial chest pain, currently being followed closely by Cardiology and Pulmonology at this time with intercurrent IV steroid therapy as given. LABORATORY DATA: Her glycemic levels are still fluctuating and today's glucose values ranged from 383 to 408 mg/dL. Her chemistries have shown a BUN of 23, sodium 137, potassium 4.4, chloride 102, CO2 of 26, glucose 391, creatinine 0.8. Thyroid studies with a T4 of 6.45, with a free T4 of 0.95, total T3 of 0.742, and TSH of 0.03. ASSESSMENT: This is a 51-year-old female with uncontrolled and decompensated type 2 insulin requiring diabetes with marked hyperglycemic accelerations related to the intercurrent steroid therapy as noted increased insulin resistance and further impaired glucose tolerance thereof. Moreover, she remains clinically euthyroid but biochemically has abnormal thyroid function studies indicative of the so called acute sick euthyroid syndrome with superimposed TSH suppression from the intercurrent IV steroid therapy which would temporarily cause inhibition and suppression of TSH levels as expected. Plan of management is discussed with the patient and staff. Will modify her current insulin regimen once again and increase the NovoLog to 16 units subcu t.i.d. before meals prescribed today as ordered. We will also titrate her basal insulin with Lantus to 40 units subcu at bedtime daily to start tonight. We will continue the modified coverage scale to obviate hypoglycemia, and detailed orders have been given. Moreover, we will obtain serial thyroid studies and observe the clinical and biochemical recovery thereof. There is no indication at this time for any kind of thyroid pharmacotherapy. improvement of her biochemical indices as the IV steroids are tapered down accordingly. We will obtain serial chemistries and supplement accordingly as needed. We will follow with you. Morena Saldaña MD
[2017-11-16] MEDS: (Lantus) Insulin Glargine, Recombinant SC SCH (22:18)
[2017-11-17] MEDS: Albuterol-Ipratrop 3 mg / 0.5 (3 ml) UD INH SCH ×5 (03:17→19:45)
[2017-11-17] MEDS: Fluticasone-Salmeterol 250-50mcg Diskus INH SCH ×2 (07:37→19:45)
[2017-11-17 09:08] LABS: ALB/GLOB RATIO 1.6 (1.0-2.1); ALBUMIN 3.8 g/dL (3.5-5.0); ALT/SGPT 47 U/L (9-52); AST/SGOT 20 U/L (14-36); BLOOD UREA NITROGEN 22 mg/dL (7-17); CALCIUM 8.9 mg/dl (8.6-10.4); GFR AFRICAN-AMERICAN > 60; GFR NON-AFRICAN AMERICAN > 60; HDL CHOLESTEROL 90 mg/dL (30-70)
[2017-11-17] MEDS: Enoxaparin 40 mg Syringe SC SCH (09:09)
[2017-11-17] MEDS: Magnesium Oxide 400 mg Tab UD PO SCH ×2 (09:10→17:23)
[2017-11-17] MEDS: (Novolog) Insulin Aspart, Recombinant 100 u/ml 10 ml vial SC SCH ×7 (09:10→21:43)
[2017-11-17] MEDS: Nystatin 100,000 Units/ml Oral Susp 5 ml UD PO SCH ×4 (09:10→21:43)
[2017-11-17] MEDS: Pantoprazole 40 mg EC Tab PO SCH (09:10)
[2017-11-17] MEDS: Promethazine 12.5 mg/10 ml Syrup PO PRN (09:11)
[2017-11-17] MEDS: Cilostazol 100 mg Tab UD PO SCH ×2 (09:11→21:43)
[2017-11-17] MEDS: MethylPREDNISolone 40 mg Vial IVP SCH ×2 (09:12→21:43)
[2017-11-17 09:17] LABS: LDL CHOLESTEROL 84 mg/dL (0-129)
[2017-11-17] MEDS ORDERED: Oxycodone/Acetaminophen 5/325 mg Tab PO PRN (10:49)
[2017-11-17 11:36] LABS: T4 7.21 ug/dL (5.5-11.0)
[2017-11-17] MEDS: Bacitracin Ointment 30 GM TUBE TOP SCH ×2 (11:47→18:15)
--- NOTE | 2017-11-17 12:08 | CP.PCM.PN ---
Subjective - Date & Time of Evaluation Date of Evaluation: 11/17/17 Time of Evaluation: 12:04 - Subjective Subjective: COVERING DR TOWNSEND. PT ALERT, STILL +COUGH., EATING OK., ROS ; OTHERWISE NEG. Objective - Vital Signs/Intake and Output Vital Signs (last 24 hours): Temp Pulse Resp BP Pulse Ox 97.7 F 90 18 117/62 96 11/17/17 07:05 11/17/17 07:05 11/17/17 07:05 11/17/17 07:05 11/17/17 07:05 Intake and Output: 11/17/17 11/17/17 06:59 18:59 Intake Total 120 Balance 120 - Medications Medications: Current Medications Albuterol/Ipratropium (Duoneb 3 Mg/0.5 Mg (3 Ml) Ud) 3 ml INH RQ4 [facility] Last Admin: 11/17/17 07:37 Dose: 3 ml Alprazolam (Xanax) 2 mg PO Q6 PRN PRN Reason: Anxiety Last Admin: 11/17/17 01:51 Dose: 2 mg Amlodipine Besylate (Norvasc) 10 mg PO DAILY [facility] Last Admin: 11/17/17 09:09 Dose: 10 mg Aspirin (Ecotrin) 81 mg PO DAILY [facility] Last Admin: 11/17/17 09:10 Dose: 81 mg Bacitracin (Bacitracin) 1 gm TOP BID [facility] Last Admin: 11/17/17 11:47 Dose: 1 applic Cilostazol (Pletal) 100 mg PO Q12 [facility] Last Admin: 11/17/17 09:11 Dose: 100 mg Enoxaparin Sodium (Lovenox) 40 mg SC DAILY [facility] Last Admin: 11/17/17 09:09 Dose: 40 mg Gabapentin (Neurontin) 600 mg PO TID [facility] Last Admin: 11/17/17 09:09 Dose: 600 mg Insulin Aspart (Novolog) 0 unit SC ACHS [facility] Last Admin: 11/17/17 11:47 Dose: 3 units Insulin Aspart (Novolog) 16 unit SC AC [facility] Last Admin: 11/17/17 11:47 Dose: 16 unit Insulin Glargine (Lantus) 40 unit SC HS [facility] Last Admin: 11/16/17 22:18 Dose: 40 unit Losartan Potassium (Cozaar) 100 mg PO DAILY [facility] Last Admin: 11/17/17 09:09 Dose: 100 mg Magnesium Oxide (Mag-Ox) 400 mg PO BID [facility] Last Admin: 11/17/17 09:10 Dose: 400 mg Metformin HCl (Glucophage) 1,000 mg PO BID [facility] Last Admin: 11/17/17 09:07 Dose: 1,000 mg Methylprednisolone (Solu-Medrol) 20 mg IVP Q12 [facility] Last Admin: 11/17/17 09:12 Dose: 20 mg Nystatin (Nystatin Oral Susp) 5 ml PO QID [facility] Last Admin: 11/17/17 09:10 Dose: 5 ml Oxycodone/Acetaminophen (Percocet 5/325 Mg Tab) 1 tab PO Q6H PRN PRN Reason: Pain, severe (8-10) Stop: 11/20/17 10:50 Last Admin: 11/17/17 10:58 Dose: 1 tab Pantoprazole Sodium (Protonix Ec Tab) 40 mg PO DAILY [facility] Last Admin: 11/17/17 09:10 Dose: 40 mg Promethazine HCl (Phenergan Syrup) 12.5 mg PO Q6 PRN PRN Reason: Shortness of Breath Last Admin: 11/17/17 09:11 Dose: 12.5 mg Rosuvastatin Calcium (Crestor) 10 mg PO HS [facility] Last Admin: 11/16/17 22:17 Dose: 10 mg Fluticasone/Salmeterol (Advair Diskus 250/50) 1 puff INH RQ12 [facility] Last Admin: 11/17/17 07:37 Dose: 1 puff Sitagliptin Phosphate (Januvia) 50 mg PO ACB [facility] Last Admin: 11/17/17 09:09 Dose: 50 mg Zolpidem Tartrate (Ambien) 5 mg PO HS PRN PRN Reason: Insomnia Last Admin: 11/16/17 00:00 Dose: 5 mg - Labs Labs: 11/16/17 06:39 11/17/17 08:30 PT 10.4 SECONDS (9.7-12.2) 11/10/17 16:11 INR 1.0 11/10/17 16:11 APTT 31 SECONDS (21-34) 11/10/17 16:11 - Constitutional Appears: Non-toxic, No Acute Distress, Chronically Ill - Head Exam Head Exam: ATRAUMATIC, NORMOCEPHALIC - Eye Exam Eye Exam: EOMI, Normal appearance - ENT Exam ENT Exam: Mucous Membranes Moist - Neck Exam Neck Exam: Normal Inspection - Respiratory Exam Respiratory Exam: Prolonged Expiratory Phase, Wheezes. absent: Accessory Muscle Use - Cardiovascular Exam Cardiovascular Exam: RRR, +S1, +S2 - GI/Abdominal Exam GI & Abdominal Exam: Soft. absent: Tenderness - Rectal Exam Rectal Exam: Deferred - Extremities Exam Extremities Exam: absent: Calf Tenderness, Pedal Edema - Back Exam Back Exam: absent: CVA tenderness (L), CVA tenderness (R) - Neurological Exam Neurological Exam: Alert, Awake, CN II-XII Intact, Oriented x3 - Psychiatric Exam Psychiatric exam: Anxious - Skin Skin Exam: absent: Rash Assessment and Plan (1) Hypertension Status: Acute (2) Diabetes Status: Acute (3) Cerebrovascular accident (CVA) Status: Acute (4) Anxiety Status: Acute (5) COPD exacerbation Status: Acute - Assessment and Plan (Free Text) Assessment: RESP STATUS SLOW IMPROVEMENT. CONT NEB BD., STILL WITH BRONCHOSPASM., ON STEROID TAPER., METFORMIN RESUMED, CONT PER EDNO. MONITOR O2 SAT. CXR REVIEWED. REFUSED CPAP AT HS. PROG POOR. DISCUSSED WITH STAFF AT LENGTH.
[2017-11-17 16:31] VITALS: RESP 20
--- NOTE | 2017-11-17 20:24 | CP.PCM.PN ---
Subjective - Date & Time of Evaluation Date of Evaluation: 11/17/17 Time of Evaluation: 07:00 - Subjective Subjective: clinically same Objective - Vital Signs/Intake and Output Vital Signs (last 24 hours): Temp Pulse Resp BP Pulse Ox 98.2 F 102 H 20 128/66 95 11/17/17 16:00 11/17/17 16:00 11/17/17 16:00 11/17/17 16:00 11/17/17 16:00 - Medications Medications: Current Medications Albuterol/Ipratropium (Duoneb 3 Mg/0.5 Mg (3 Ml) Ud) 3 ml INH RQ4 [facility] Last Admin: 11/17/17 19:45 Dose: 3 ml Alprazolam (Xanax) 2 mg PO Q12 [facility] Amlodipine Besylate (Norvasc) 10 mg PO DAILY [facility] Last Admin: 11/17/17 09:09 Dose: 10 mg Aspirin (Ecotrin) 81 mg PO DAILY [facility] Last Admin: 11/17/17 09:10 Dose: 81 mg Bacitracin (Bacitracin) 1 gm TOP BID [facility] Last Admin: 11/17/17 18:15 Dose: 1 applic Cilostazol (Pletal) 100 mg PO Q12 [facility] Last Admin: 11/17/17 09:11 Dose: 100 mg Enoxaparin Sodium (Lovenox) 40 mg SC DAILY [facility] Last Admin: 11/17/17 09:09 Dose: 40 mg Furosemide (Lasix) 10 mg PO BID [facility] Gabapentin (Neurontin) 600 mg PO TID [facility] Last Admin: 11/17/17 17:24 Dose: 600 mg Insulin Aspart (Novolog) 0 unit SC ACHS [facility] Last Admin: 11/17/17 17:24 Dose: Not Given Insulin Aspart (Novolog) 20 unit SC AC [facility] Last Admin: 11/17/17 17:25 Dose: 20 units Insulin Glargine (Lantus) 40 unit SC HS [facility] Last Admin: 11/16/17 22:18 Dose: 40 unit Losartan Potassium (Cozaar) 100 mg PO DAILY [facility] Last Admin: 11/17/17 09:09 Dose: 100 mg Magnesium Oxide (Mag-Ox) 400 mg PO BID [facility] Last Admin: 11/17/17 17:23 Dose: 400 mg Metformin HCl (Glucophage) 1,000 mg PO BID [facility] Last Admin: 11/17/17 17:23 Dose: 1,000 mg Methylprednisolone (Solu-Medrol) 20 mg IVP Q12 [facility] Last Admin: 11/17/17 09:12 Dose: 20 mg Nystatin (Nystatin Oral Susp) 5 ml PO QID [facility] Last Admin: 11/17/17 17:25 Dose: 5 ml Oxycodone/Acetaminophen (Percocet 5/325 Mg Tab) 1 tab PO Q6H PRN PRN Reason: Pain, severe (8-10) Stop: 11/20/17 10:50 Last Admin: 11/17/17 10:58 Dose: 1 tab Pantoprazole Sodium (Protonix Ec Tab) 40 mg PO DAILY [facility] Last Admin: 11/17/17 09:10 Dose: 40 mg Promethazine HCl (Phenergan Syrup) 12.5 mg PO Q6 PRN PRN Reason: Shortness of Breath Last Admin: 11/17/17 09:11 Dose: 12.5 mg Rosuvastatin Calcium (Crestor) 10 mg PO HS [facility] Last Admin: 11/16/17 22:17 Dose: 10 mg Fluticasone/Salmeterol (Advair Diskus 250/50) 1 puff INH RQ12 [facility] Last Admin: 11/17/17 19:45 Dose: 1 puff Sitagliptin Phosphate (Januvia) 50 mg PO ACB [facility] Last Admin: 11/17/17 09:09 Dose: 50 mg Zolpidem Tartrate (Ambien) 5 mg PO HS PRN PRN Reason: Insomnia Last Admin: 11/16/17 00:00 Dose: 5 mg - Labs Labs: 11/16/17 06:39 11/17/17 08:30 PT 10.4 SECONDS (9.7-12.2) 11/10/17 16:11 INR 1.0 11/10/17 16:11 APTT 31 SECONDS (21-34) 11/10/17 16:11 - Constitutional Appears: Well - Head Exam Head Exam: ATRAUMATIC, NORMAL INSPECTION, NORMOCEPHALIC - Eye Exam Eye Exam: EOMI, Normal appearance, PERRL Pupil Exam: NORMAL ACCOMODATION, PERRL - ENT Exam ENT Exam: Mucous Membranes Moist, Normal Exam - Neck Exam Neck Exam: Full ROM, Normal Inspection. absent: Lymphadenopathy - Respiratory Exam Respiratory Exam: Decreased Breath Sounds - Cardiovascular Exam Cardiovascular Exam: REGULAR RHYTHM, +S1, +S2 - GI/Abdominal Exam GI & Abdominal Exam: Soft, Diminished Bowel Sounds - Rectal Exam Rectal Exam: Deferred Assessment and Plan - Assessment and Plan (Free Text) Plan: Patient is off the BiPAP Patient uses his BiPAP at next at night Continue DuoNeb Continue Solu-Medrol Patient told that her blood sugar is high because of the steroids be going up and down Patient is started on the Lantus Patient is seen by Yessi Blood sugar is still little high started on Lantus 40 units patient agreed to be discharged tomorrow morning As ordered
--- NOTE | 2017-11-17 20:51 | PN ---
DATE: 11/17/2017 SUBJECTIVE: The patient was seen, continues to be very anxious, somatic, stating that she needs a lot of attention. The patient was seen by Dr. Saldaña, procurement buyer, and her thyroid problem as well as blood sugar were addressed. The patient continues to have elevated blood sugar level which seems to be elevated when she is too anxious. Her blood sugars are still in the high 300s and also 400s. Discussed with the patient about her psych medication. I did advise her to put her Xanax twice a day standing instead of p.r.n. to get a better blood level. The patient is also ambivalent to go for subacute rehab stating that she has her who can take care of her at home. Today, she was complaining she wants oxygen. The patient was, however, transferred to a different floor. The patient is currently in the third floor. PHYSICAL EXAMINATION: VITAL SIGNS: Temperature is 97.7, pulse rate is 90, blood pressure is 117/62, respirations are 18, oxygen saturation is 96%. REVIEW OF SYSTEMS: CONSTITUTIONAL: The patient is alert and oriented x3. She is still anxious and somatic, seen in her room, complaining that she has oxygen. SKIN: No diaphoresis. HEENT: She has headache at times. CARDIOVASCULAR: No chest pain. NECK: Supple. RESPIRATORY: Still on oxygen. GASTROINTESTINAL: No nausea. No vomiting. EXTREMITIES: Gait is unsteady. MUSCULOSKELETAL: Feels weak. NEUROLOGIC: Alert and oriented x3. GENITOURINARY: No dysuria. MENTAL STATUS EXAMINATION: Well-developed female, looks her stated age, alert and oriented x3. Still mood has been anxious, somatic and depressed. Affect is reactive. Speech is spontaneous. Thought process is coherent. Thought content still very preoccupied about her medical problems. Extremely somatic. No paranoia, no hallucinations, no suicidal thoughts or ideations. Attention and memory seem to be fair. Insight and judgment limited. Impulse control is fair at this time. IMPRESSION: History of anxiety and depression, which is probably secondary to medical problems. PLAN AND RECOMMENDATIONS: The patient was seen and meds reviewed. Continue Ambien 5 mg at bedtime. We will change the Xanax to 2 mg p.o. every 12 hours for anxiety standing instead of p.r.n. The patient had been followed by Dr. Saldaña for her uncontrolled diabetes. Continue present psych meds as ordered. Continue treatment plan as outlined. We will monitor her blood sugar accordingly. Shankar Gray MD [place]
[2017-11-17] MEDS: (Lantus) Insulin Glargine, Recombinant SC SCH (21:42)
[2017-11-17] MEDS: Furosemide 10 mg/mL LIQ (60mL) PO SCH (21:42)
[2017-11-18] MEDS: Albuterol-Ipratrop 3 mg / 0.5 (3 ml) UD INH SCH ×3 (00:02→09:05)
--- NOTE | 2017-11-18 06:40 | CP.PCM.PN ---
Subjective - Date & Time of Evaluation Date of Evaluation: 11/18/17 Time of Evaluation: 06:39 - Subjective Subjective: Ms. Harris was seen and examined at the bedside. She is alert, oriented in all spheres. She claims of experiencing mild headache, due to severe coughing. She denies any diplopia, and claims of the left side weakness since her previous CVA. She is able to feed herself and follow commands. She is on tele sitter for patient safety. There was no untoward events overnight. Objective - Vital Signs/Intake and Output Vital Signs (last 24 hours): Temp Pulse Resp BP Pulse Ox 98.5 F 83 20 145/57 L 94 L 11/18/17 00:00 11/18/17 00:00 11/18/17 00:00 11/18/17 00:00 11/18/17 00:00 Intake and Output: 11/17/17 11/18/17 18:59 06:59 Intake Total 300 Balance 300 - Medications Medications: Current Medications Albuterol/Ipratropium (Duoneb 3 Mg/0.5 Mg (3 Ml) Ud) 3 ml INH RQ4 [facility] Last Admin: 11/18/17 00:02 Dose: 3 ml Alprazolam (Xanax) 2 mg PO Q12 [facility] Last Admin: 11/17/17 21:44 Dose: Not Given Amlodipine Besylate (Norvasc) 10 mg PO DAILY [facility] Last Admin: 11/17/17 09:09 Dose: 10 mg Aspirin (Ecotrin) 81 mg PO DAILY [facility] Last Admin: 11/17/17 09:10 Dose: 81 mg Bacitracin (Bacitracin) 1 gm TOP BID [facility] Last Admin: 11/17/17 18:15 Dose: 1 applic Cilostazol (Pletal) 100 mg PO Q12 [facility] Last Admin: 11/17/17 21:43 Dose: 100 mg Enoxaparin Sodium (Lovenox) 40 mg SC DAILY [facility] Last Admin: 11/17/17 09:09 Dose: 40 mg Furosemide (Lasix) 10 mg PO BID [facility] Last Admin: 11/17/17 21:42 Dose: 10 mg Gabapentin (Neurontin) 600 mg PO TID [facility] Last Admin: 11/17/17 17:24 Dose: 600 mg Insulin Aspart (Novolog) 0 unit SC ACHS [facility] Last Admin: 11/17/17 21:43 Dose: Not Given Insulin Aspart (Novolog) 20 unit SC AC [facility] Last Admin: 11/17/17 17:25 Dose: 20 units Insulin Glargine (Lantus) 40 unit SC HS [facility] Last Admin: 11/17/17 21:42 Dose: 40 unit Losartan Potassium (Cozaar) 100 mg PO DAILY [facility] Last Admin: 11/17/17 09:09 Dose: 100 mg Magnesium Oxide (Mag-Ox) 400 mg PO BID [facility] Last Admin: 11/17/17 17:23 Dose: 400 mg Metformin HCl (Glucophage) 1,000 mg PO BID [facility] Last Admin: 11/17/17 17:23 Dose: 1,000 mg Methylprednisolone (Solu-Medrol) 20 mg IVP Q12 [facility] Last Admin: 11/17/17 21:43 Dose: 20 mg Nystatin (Nystatin Oral Susp) 5 ml PO QID [facility] Last Admin: 11/17/17 21:43 Dose: 5 ml Oxycodone/Acetaminophen (Percocet 5/325 Mg Tab) 1 tab PO Q6H PRN PRN Reason: Pain, severe (8-10) Stop: 11/20/17 10:50 Last Admin: 11/17/17 10:58 Dose: 1 tab Pantoprazole Sodium (Protonix Ec Tab) 40 mg PO DAILY [facility] Last Admin: 11/17/17 09:10 Dose: 40 mg Promethazine HCl (Phenergan Syrup) 12.5 mg PO Q6 PRN PRN Reason: Shortness of Breath Last Admin: 11/17/17 09:11 Dose: 12.5 mg Rosuvastatin Calcium (Crestor) 10 mg PO HS [facility] Last Admin: 11/17/17 21:41 Dose: 10 mg Fluticasone/Salmeterol (Advair Diskus 250/50) 1 puff INH RQ12 [facility] Last Admin: 11/17/17 19:45 Dose: 1 puff Sitagliptin Phosphate (Januvia) 50 mg PO ACB [facility] Last Admin: 11/17/17 09:09 Dose: 50 mg Zolpidem Tartrate (Ambien) 5 mg PO HS PRN PRN Reason: Insomnia Last Admin: 11/18/17 00:07 Dose: 5 mg - Labs Labs: 11/16/17 06:39 11/17/17 08:30 PT 10.4 SECONDS (9.7-12.2) 11/10/17 16:11 INR 1.0 11/10/17 16:11 APTT 31 SECONDS (21-34) 11/10/17 16:11 - Constitutional Appears: No Acute Distress - Head Exam Head Exam: NORMAL INSPECTION - Eye Exam Pupil Exam: PERRL - Neurological Exam Neurological Exam: Alert, Awake Neuro motor strength exam: Left Upper Extremity: 4, Right Upper Extremity: 4, Left Lower Extremity: 4, Right Lower Extremity: 4 Additional comments: neurological unchanged from previous examination. Assessment and Plan (1) Dizziness Assessment & Plan: Continue all current medical, physical, and occupational therapies. Pending EEG result. Recommend blood pressure and glycemic control, treat any underlying infection, Status: Acute
--- NOTE | 2017-11-18 06:44 | PN ---
DATE: 11/17/2017 ENDO FOLLOWUP NOTE LOCATION: In room 351. SUBJECTIVE: This is a 51-year-old female with recent uncontrolled type 2 insulin-requiring diabetes, presenting with acute exacerbation of COPD with intercurrent IV steroid therapy and supervening hyperglycemic accelerations as noted temporally and is being followed closely now for metabolic management. Her glycemic levels are fluctuating and ranging from 345 to 446 mg/dL. It was at bedtime last night. The chemistry showed the BUN of 22, sodium 140, potassium 4.1, chloride 103, CO2 of 22, glucose 384, and creatinine 0.8. Her repeat thyroid study showed the T4 of 7.21 with a free T4 of 1.07 and a TSH of 0.17. ASSESSMENT: This is a 51-year-old female with uncontrolled and decompensated type 2 insulin-requiring diabetes with marked hyperglycemic accelerations related to the intercurrent intravenous steroid therapy and supervening increased insulin resistance thereof with impaired glucose tolerance as expected. She also remains clinically euthyroid with biochemical assessment of the so called acute sick euthyroid syndrome with superimposed thyroid-stimulating hormone suppression from the intercurrent intravenous steroid therapy as given. PLAN OF MANAGEMENT: We would expect clinical and biochemical improvement of her thyroid indices after the IV steroids are tapered down to oral steroid replacement therapy. There is no indication at this time to any kind of thyroid pharmacotherapy. We will also modify her current basal and bolus insulin regimen and increase the Lantus to 40 units subcutaneously at bedtime daily to start tonight. We will increase her Novolog to 20 units subcutaneously t.i.d. before meals to start today as ordered. We will titrate incrementally as indicated to optimize metabolic control. We will obtain serial chemistries and supplement accordingly as needed. We will follow. Morena Saldaña MD
[2017-11-18] MEDS: (Novolog) Insulin Aspart, Recombinant 100 u/ml 10 ml vial SC SCH ×4 (07:56→12:09)
[2017-11-18 08:11] VITALS: PULSE 95; TEMP 97.5; O2SAT 97
[2017-11-18] MEDS: Cilostazol 100 mg Tab UD PO SCH (09:34)
[2017-11-18] MEDS: Magnesium Oxide 400 mg Tab UD PO SCH (09:35)
[2017-11-18] MEDS: Nystatin 100,000 Units/ml Oral Susp 5 ml UD PO SCH (09:35)
[2017-11-18] MEDS: Enoxaparin 40 mg Syringe SC SCH (09:35)
[2017-11-18] MEDS: Pantoprazole 40 mg EC Tab PO SCH (09:36)
[2017-11-18] MEDS: Bacitracin Ointment 30 GM TUBE TOP SCH (09:36)
[2017-11-18] MEDS: MethylPREDNISolone 40 mg Vial IVP SCH (09:37)
[2017-11-18] MEDS: Furosemide 10 mg/mL LIQ (60mL) PO SCH (11:27)
[2017-11-18 11:28] VITALS: BP 140/70
--- NOTE | 2017-11-18 11:28 | CP.PCM.PN ---
Subjective - Date & Time of Evaluation Date of Evaluation: 11/18/17 Time of Evaluation: 11:25 - Subjective Subjective: COVERING DR TOWNSEND. PT ALERT, LESS COUGH., STILL ANXIOUS. ROS; OTHERWISE NEG . Objective - Vital Signs/Intake and Output Vital Signs (last 24 hours): Temp Pulse Resp BP Pulse Ox 97.5 F L 95 H 20 103/62 97 11/18/17 08:00 11/18/17 08:00 11/18/17 08:00 11/18/17 08:00 11/18/17 08:00 Intake and Output: 11/18/17 11/18/17 06:59 18:59 Intake Total 300 300 Balance 300 300 - Medications Medications: Current Medications Albuterol/Ipratropium (Duoneb 3 Mg/0.5 Mg (3 Ml) Ud) 3 ml INH RQ4 [facility] Last Admin: 11/18/17 09:05 Dose: 3 ml Alprazolam (Xanax) 2 mg PO Q12 [facility] Last Admin: 11/18/17 09:34 Dose: 2 mg Amlodipine Besylate (Norvasc) 10 mg PO DAILY [facility] Last Admin: 11/18/17 09:34 Dose: 10 mg Aspirin (Ecotrin) 81 mg PO DAILY [facility] Last Admin: 11/18/17 09:35 Dose: 81 mg Bacitracin (Bacitracin) 1 gm TOP BID [facility] Last Admin: 11/18/17 09:36 Dose: 1 applic Cilostazol (Pletal) 100 mg PO Q12 [facility] Last Admin: 11/18/17 09:34 Dose: 100 mg Furosemide (Lasix) 10 mg PO BID [facility] Last Admin: 11/17/17 21:42 Dose: 10 mg Gabapentin (Neurontin) 600 mg PO TID [facility] Last Admin: 11/18/17 09:34 Dose: 600 mg Insulin Aspart (Novolog) 0 unit SC ACHS [facility] Last Admin: 11/18/17 07:56 Dose: 5 units Insulin Aspart (Novolog) 20 unit SC AC [facility] Last Admin: 11/18/17 07:57 Dose: 20 units Insulin Glargine (Lantus) 40 unit SC HS [facility] Last Admin: 11/17/17 21:42 Dose: 40 unit Losartan Potassium (Cozaar) 100 mg PO DAILY [facility] Last Admin: 11/18/17 09:35 Dose: 100 mg Magnesium Oxide (Mag-Ox) 400 mg PO BID [facility] Last Admin: 11/18/17 09:35 Dose: 400 mg Metformin HCl (Glucophage) 1,000 mg PO BID [facility] Last Admin: 11/18/17 09:35 Dose: 1,000 mg Methylprednisolone (Solu-Medrol) 20 mg IVP Q12 [facility] Last Admin: 11/18/17 09:37 Dose: 20 mg Nystatin (Nystatin Oral Susp) 5 ml PO QID [facility] Last Admin: 11/18/17 09:35 Dose: 5 ml Oxycodone/Acetaminophen (Percocet 5/325 Mg Tab) 1 tab PO Q6H PRN PRN Reason: Pain, severe (8-10) Stop: 11/20/17 10:50 Last Admin: 11/17/17 10:58 Dose: 1 tab Pantoprazole Sodium (Protonix Ec Tab) 40 mg PO DAILY [facility] Last Admin: 11/18/17 09:36 Dose: 40 mg Promethazine HCl (Phenergan Syrup) 12.5 mg PO Q6 PRN PRN Reason: Shortness of Breath Last Admin: 11/17/17 09:11 Dose: 12.5 mg Rosuvastatin Calcium (Crestor) 10 mg PO HS [facility] Last Admin: 11/17/17 21:41 Dose: 10 mg Fluticasone/Salmeterol (Advair Diskus 250/50) 1 puff INH RQ12 [facility] Last Admin: 11/17/17 19:45 Dose: 1 puff Sitagliptin Phosphate (Januvia) 50 mg PO ACB [facility] Last Admin: 11/18/17 07:55 Dose: 50 mg Zolpidem Tartrate (Ambien) 5 mg PO HS PRN PRN Reason: Insomnia Last Admin: 11/18/17 00:07 Dose: 5 mg - Labs Labs: 11/16/17 06:39 11/17/17 08:30 PT 10.4 SECONDS (9.7-12.2) 11/10/17 16:11 INR 1.0 11/10/17 16:11 APTT 31 SECONDS (21-34) 11/10/17 16:11 - Constitutional Appears: Non-toxic, No Acute Distress - Head Exam Head Exam: ATRAUMATIC, NORMOCEPHALIC - Eye Exam Eye Exam: EOMI, Normal appearance - ENT Exam ENT Exam: Mucous Membranes Moist - Neck Exam Neck Exam: Normal Inspection - Respiratory Exam Respiratory Exam: Wheezes. absent: Accessory Muscle Use Additional comments: BETTER AIR MOVEMENT - Cardiovascular Exam Cardiovascular Exam: RRR, +S1, +S2 - GI/Abdominal Exam GI & Abdominal Exam: Soft. absent: Tenderness - Rectal Exam Rectal Exam: Deferred - Extremities Exam Extremities Exam: absent: Calf Tenderness, Pedal Edema - Back Exam Back Exam: absent: CVA tenderness (L), CVA tenderness (R) - Neurological Exam Neurological Exam: Alert, Awake, CN II-XII Intact, Oriented x3 - Psychiatric Exam Psychiatric exam: Anxious - Skin Skin Exam: absent: Rash Assessment and Plan (1) Hypertension Status: Acute (2) Diabetes Status: Acute (3) Cerebrovascular accident (CVA) Status: Acute (4) Anxiety Status: Acute (5) COPD exacerbation Status: Acute - Assessment and Plan (Free Text) Assessment: RESP STATUS IMPROVING., ON STEROID TAPER, CONT NEB BD., MONITOR O2 SAT. CXR REVIEWED. CPAP QHS., ENDO F/U NOTED. PSYCH F/U NOTED., INCREASE OOB., DISCUSSED WITH STAFF AT LENGTH
--- NOTE | 2017-11-18 13:04 | CP.PCM.PN ---
Subjective - Date & Time of Evaluation Date of Evaluation: 11/18/17 Time of Evaluation: 07:00 - Subjective Subjective: clinically same Objective - Vital Signs/Intake and Output Vital Signs (last 24 hours): Temp Pulse Resp BP Pulse Ox 97.5 F L 95 H 20 140/70 97 11/18/17 08:00 11/18/17 08:00 11/18/17 08:00 11/18/17 11:27 11/18/17 08:00 Intake and Output: 11/18/17 11/18/17 06:59 18:59 Intake Total 300 300 Balance 300 300 - Medications Medications: Current Medications Albuterol/Ipratropium (Duoneb 3 Mg/0.5 Mg (3 Ml) Ud) 3 ml INH RQ4 [facility] Last Admin: 11/18/17 09:05 Dose: 3 ml Alprazolam (Xanax) 2 mg PO Q12 [facility] Last Admin: 11/18/17 09:34 Dose: 2 mg Amlodipine Besylate (Norvasc) 10 mg PO DAILY [facility] Last Admin: 11/18/17 09:34 Dose: 10 mg Aspirin (Ecotrin) 81 mg PO DAILY [facility] Last Admin: 11/18/17 09:35 Dose: 81 mg Bacitracin (Bacitracin) 1 gm TOP BID [facility] Last Admin: 11/18/17 09:36 Dose: 1 applic Cilostazol (Pletal) 100 mg PO Q12 [facility] Last Admin: 11/18/17 09:34 Dose: 100 mg Furosemide (Lasix) 10 mg PO BID [facility] Gabapentin (Neurontin) 600 mg PO TID [facility] Last Admin: 11/18/17 09:34 Dose: 600 mg Insulin Aspart (Novolog) 0 unit SC ACHS [facility] Last Admin: 11/18/17 11:32 Dose: Not Given Insulin Aspart (Novolog) 20 unit SC AC [facility] Last Admin: 11/18/17 12:09 Dose: 20 units Insulin Glargine (Lantus) 40 unit SC HS [facility] Last Admin: 11/17/17 21:42 Dose: 40 unit Losartan Potassium (Cozaar) 100 mg PO DAILY [facility] Last Admin: 11/18/17 09:35 Dose: 100 mg Magnesium Oxide (Mag-Ox) 400 mg PO BID [facility] Last Admin: 11/18/17 09:35 Dose: 400 mg Metformin HCl (Glucophage) 1,000 mg PO BID [facility] Last Admin: 11/18/17 09:35 Dose: 1,000 mg Methylprednisolone (Solu-Medrol) 20 mg IVP Q12 [facility] Last Admin: 11/18/17 09:37 Dose: 20 mg Nystatin (Nystatin Oral Susp) 5 ml PO QID [facility] Last Admin: 11/18/17 09:35 Dose: 5 ml Oxycodone/Acetaminophen (Percocet 5/325 Mg Tab) 1 tab PO Q6H PRN PRN Reason: Pain, severe (8-10) Stop: 11/20/17 10:50 Last Admin: 11/17/17 10:58 Dose: 1 tab Pantoprazole Sodium (Protonix Ec Tab) 40 mg PO DAILY [facility] Last Admin: 11/18/17 09:36 Dose: 40 mg Promethazine HCl (Phenergan Syrup) 12.5 mg PO Q6 PRN PRN Reason: Shortness of Breath Last Admin: 11/17/17 09:11 Dose: 12.5 mg Rosuvastatin Calcium (Crestor) 10 mg PO HS [facility] Last Admin: 11/17/17 21:41 Dose: 10 mg Fluticasone/Salmeterol (Advair Diskus 250/50) 1 puff INH RQ12 [facility] Last Admin: 11/17/17 19:45 Dose: 1 puff Sitagliptin Phosphate (Januvia) 50 mg PO ACB [facility] Last Admin: 11/18/17 07:55 Dose: 50 mg Zolpidem Tartrate (Ambien) 5 mg PO HS PRN PRN Reason: Insomnia Last Admin: 11/18/17 00:07 Dose: 5 mg - Labs Labs: 11/16/17 06:39 11/17/17 08:30 PT 10.4 SECONDS (9.7-12.2) 11/10/17 16:11 INR 1.0 11/10/17 16:11 APTT 31 SECONDS (21-34) 11/10/17 16:11 - Constitutional Appears: Well - Head Exam Head Exam: ATRAUMATIC, NORMAL INSPECTION, NORMOCEPHALIC - Eye Exam Eye Exam: EOMI, Normal appearance, PERRL Pupil Exam: NORMAL ACCOMODATION, PERRL - ENT Exam ENT Exam: Mucous Membranes Moist, Normal Exam - Neck Exam Neck Exam: Full ROM, Normal Inspection. absent: Lymphadenopathy - Respiratory Exam Respiratory Exam: Decreased Breath Sounds - Cardiovascular Exam Cardiovascular Exam: REGULAR RHYTHM, +S1, +S2 - GI/Abdominal Exam GI & Abdominal Exam: Soft, Diminished Bowel Sounds - Rectal Exam Rectal Exam: Deferred
--- NOTE | 2017-11-18 13:55 | PN ---
DATE: 11/18/2017 SUBJECTIVE: The patient is seen. The patient is still anxious and somatic the day when she wants physical therapy, still complaining about her breathing. She was placed on standing Xanax 2 mg every 12 hours and Ambien 5 mg p.o. at bedtime. I did suggest her to try SSRI especially Lexapro, but she said she took that in the past and she is unable to tolerate it. The patient states she does not want to go for subacute rehab. She just wants to be treated in the hospital and wants to go home. She said that she has the who will take care her at home. Review of her labs, her blood sugars still elevated but improving. The patient states that she is not cheating on her diet. PHYSICAL EXAMINATION: VITAL SIGNS: Temperature is 97.5, 95, 103/63, respirations 20, oxygen sat is 97%. REVIEW OF SYSTEMS: GENERAL: Alert and oriented x3. She sits in her room, still anxious, complaining that she is feeling weak and wants physical therapy. SKIN: No diaphoresis. HEENT: No headache. No dizziness. NECK: Supple. RESPIRATORY: ____01:11 shortness of breath. CARDIOVASCULAR: No palpitations. GASTROINTESTINAL: She is eating well. EXTREMITIES: The patient moving extremities. MUSCULOSKELETAL: Still feels weak. NEUROLOGIC: Alert and oriented x3. GENITOURINARY: No problems. MENTAL STATUS EXAMINATION: A well-developed female who looks her stated age. Alert and oriented x3. Mood is anxious and somatic. Affect is reactive. Speech is spontaneous. Thought process is coherent. Thought content, the patient wants physical therapy. She says she does not want to go for subacute rehab. She also reports that she is not cheating on her diet. The patient has been followed by Dr. Saldaña. No psychosis. No suicidal or homicidal ideation. Attention and memory seemed to be fair. Insight and judgement fair. Impulse control is fair. IMPRESSION: History of depression, anxiety, mood disorder secondary to medical problems. PLAN AND RECOMMENDATIONS: The patient is seen. Meds reviewed. Continue present management. Continue present psych meds. The patient followed by Dr. Saldaña with her blood sugar levels. The patient states that she does not go for subacute rehab, wants to go home once she is medically cleared. Shankar Gray MD [facility] # [id number]
--- NOTE | 2017-11-18 16:01 | CP.PCM.PN ---
Subjective - Date & Time of Evaluation Date of Evaluation: 11/18/17 Time of Evaluation: 10:00 - Subjective Subjective: Alert, awake, has an unpleasant attitude, not in distress. Objective - Vital Signs/Intake and Output Vital Signs (last 24 hours): Temp Pulse Resp BP Pulse Ox 97.5 F L 95 H 20 140/70 97 11/18/17 08:00 11/18/17 08:00 11/18/17 08:00 11/18/17 11:27 11/18/17 08:00 Intake and Output: 11/18/17 11/18/17 06:59 18:59 Intake Total 300 300 Balance 300 300 - Labs Labs: 11/16/17 06:39 11/17/17 08:30 PT 10.4 SECONDS (9.7-12.2) 11/10/17 16:11 INR 1.0 11/10/17 16:11 APTT 31 SECONDS (21-34) 11/10/17 16:11 Assessment and Plan - Assessment and Plan (Free Text) Assessment: Patient admitted with COPD exacerbation and chest pain, seen and examined. Ambulatory, no sob or chast pains, no wheezing. Discussed with DR Cynthia Dennis, plan to discharge home this am. Seen and cleared by DR Huynh for discharge. Advised to follow up with PMD in 1 week.
[2017-11-18] MEDS ORDERED: Furosemide 10 mg/mL LIQ (60mL) PO SCH (18:00)
[2017-11-18 18:45] LABS: TSI <89 % baseline (<140)
--- NOTE | 2017-11-18 20:39 | PN ---
DATE: 11/18/2017 ENDOCRINE FOLLOWUP NOTE LOCATION: In room #351. SUBJECTIVE: This is a 51-year-old female with recent uncontrolled type 2 insulin-requiring diabetes, now being followed closely for metabolic management. Her glycemic levels are fluctuating but much improved at this time, and the glucose values today once again are more accelerated and fluctuating because of the recent IV steroid therapy as given for management of acute exacerbation of COPD as noted. Her glucose values have ranged from 220 to 389 and 420 mg/dL. It was 193 to 285 at bedtime last night. The latest chemistry shows a BUN of 22, sodium 140, potassium 4.1, chloride 103, CO2 22, glucose 384, creatinine 0.8. Her hemoglobin A1c was 9.9%, which is also elevated and because of suboptimal metabolic control of her diabetic condition. Her thyroid studies showed a T4 of 7.21 with a TSH of 0.17 and a free T4 of 1.07. ASSESSMENT: This is a 51-year-old female with uncontrolled and decompensated type 2 insulin-requiring diabetes with marked hyperglycemic accelerations related to the intercurrent IV steroid therapy as given which will only be transient and expected to improve accordingly as the IV steroids are switched over and tapered down to oral steroids eventually. She also remains clinically euthyroid and biochemically has evidence of the so called acute sick euthyroid syndrome with transient TSH suppression from the intercurrent steroid therapy as given. PLAN OF MANAGEMENT: We will modify once again her basal and bolus insulin regimen and increase her Novolog to 20 units subcu t.i.d. before meals as ordered. We will also increase the basal insulin with Lantus to be given as 40 units subcu at bedtime daily to start to night. We will continue the modify coverage scale using Novolog insulin as given to obviate hypoglycemia, and detailed orders have been given. We will expect near normalization of the thyroid indices as the IV steroids are switched over to oral steroids accordingly. We will follow. Morena Saldaña MD
== END 2017-11-18 13:55 | disposition home or self-care (01) | DRG 191 ==
LOC: C.ER 14:14 → C.9E 16:50 → C.6T 22:07 → C.3T 11-17 09:55
PROVIDERS: ADMIT Internal Medicine Nephrology; ATTEND Internal Medicine Nephrology
PROC: 5A09457 Assistance with Respiratory Ventilation, 24-96 Consecutive Hours, Continuous Positive Airway Pressure (ICD-10-PCS; principal; 2017-11-15)
DX: J44.1 Chronic obstructive pulmonary disease with (acute) exacerbation (principal); L03.90 Cellulitis, unspecified; E78.5 Hyperlipidemia, unspecified; E07.81 Sick-euthyroid syndrome; F32.9 Major depressive disorder, single episode, unspecified; F41.0 Panic disorder [episodic paroxysmal anxiety]; F41.1 Generalized anxiety disorder; G47.30 Sleep apnea, unspecified; H93.11 Tinnitus, right ear; I10 Essential (primary) hypertension; I25.10 Atherosclerotic heart disease of native coronary artery without angina pectoris; F17.200 Nicotine dependence, unspecified, uncomplicated; Z91.19 Patient's noncompliance with other medical treatment and regimen; Z86.73 Personal history of transient ischemic attack (TIA), and cerebral infarction without residual deficits; E11.65 Type 2 diabetes mellitus with hyperglycemia; Z79.4 Long term (current) use of insulin; E11.319 Type 2 diabetes mellitus with unspecified diabetic retinopathy without macular edema

== ENCOUNTER 2018-08-24 10:04 | Emergency (ER) | payer OTHER, MEDICARE ==
[2018-08-24 10:05] VITALS: BMI 30.1
[2018-08-24 10:12] VITALS: BP 146/81; PULSE 88; RESP 18; TEMP 98.4; O2SAT 97
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
== END 2018-08-24 12:53 | disposition home or self-care (01) ==
LOC: C.ER 10:04
DX: S09.90XA Unspecified injury of head, initial encounter (principal); V49.9XXA Car occupant (driver) (passenger) injured in unspecified traffic accident, initial encounter; M54.9 Dorsalgia, unspecified; E11.9 Type 2 diabetes mellitus without complications; E78.00 Pure hypercholesterolemia, unspecified; I10 Essential (primary) hypertension; M06.9 Rheumatoid arthritis, unspecified; M81.0 Age-related osteoporosis without current pathological fracture; Z72.0 Tobacco use; Z86.73 Personal history of transient ischemic attack (TIA), and cerebral infarction without residual deficits
CPT/HCPCS: 70450; 72070; 72125; 81025; 96372; 99284; J1885